=== PATIENT | male | born 1975 | race Caucasian/White ===

== ENCOUNTER 2022-06-30 07:20 | Emergency (ER) | payer OTHER, SELFPAY ==
[2022-06-30 07:34] VITALS: BP 169/99; PULSE 86; RESP 18; TEMP 36.3; O2SAT 99; BMI 25.8
--- NOTE | 2022-06-30 08:04 | ED.ABDPAIN ---
HPI - Abdominal Pain General Chief Complaint: Abdominal Pain Stated Complaint: Abdominal pain/nausea Time Seen by Provider: 06/30/22 07:53 History of Present Illness HPI narrative: This 47-year-old male comes in reporting abdominal pain that is suspicious for pancreatitis. He has had this in the past and states that he did have alcohol this giving weekend began about 4 hours prior to arrival. He has had some nausea and vomiting. He does not report any fevers. Related Data Previous Rx's Medication Instructions Recorded hydrocodone 5 mg-acetaminophen 325 1 tab PO Q4-6H PRN pain #15 tabs 06/30/22 mg tablet ondansetron 4 mg disintegrating 4 mg PO Q6H #20 tabs 06/30/22 tablet Allergies Allergy/AdvReac Type Severity Reaction Status Date / Time No Known Allergies Allergy Unknown Verified 06/30/22 07:39 Review of Systems Status of ROS Reports: 10 or more systems reviewed and unremarkable except as noted in History and below Narrative Constitutional: No fevers, no weight gain or loss. Eyes: No discharge. No vision changes. HENT: No congestion, no sore throat, no ear pain. Cardiovascular: No chest pain, no palpitations. Respiratory: No shortness of breath, no wheezes, no cough. Gastrointestinal: Abdominal pain with nausea and vomiting. Genitourinary: No dysuria, no hematuria. Musculoskeletal: Normal range of motion. Skin: No rashes, no pruritis. Neurological: No dizziness, weakness, sensory change, speech change. Endo/Heme/Allergies: No bruising or bleeding. No polydipsia. Pysch: no suicidality, no anxiety, no insomnia. All other systems reviewed and are negative. [facility] Medical History (Updated 06/30/22 @ 10:42 by Rashaun Ortega MD) Acute pancreatitis Acute pancreatitis Acute sinusitis Alcohol-induced acute pancreatitis History of pancreatitis Non-ulcer dyspepsia Surgical History (Updated 03/10/22 @ 09:25 by Alexus Zurita) History of appendectomy Family History (Updated 03/10/22 @ 09:26 by Alexus Zurita) Father Lung cancer Social History (Updated 03/10/22 @ 09:27 by Alexus Zurita) Narrative: Smoker- 1 ppd Little interest or pleasure in doing things: several days Feeling down, depressed, or hopeless: not at all Exam Narrative: Exam Narrative: Constitutional: Well-developed, well-nourished, no acute distress. HEENT: Normocephalic, atraumatic. Neck: Normal range of motion. Nontender. Supple. Heart: Regular. No murmurs. Normal rate. Intact distal pulses. Lungs: Clear to auscultation. No chest discomfort. No wheezes, rhonchi, or rales. Abdomen: Normal bowel sounds. Diffuse tenderness as in the upper epigastric region. Genitalia: Deferred. Back: No midline tenderness. Normal range of motion. Extremities: Normal range of motion. No injury. Skin: Intact. No rash. Warm. No erythema or pallor. Neurologic: No altered sensation. No weakness. Alert and oriented. Psychiatric: No suicidality. No anxiety or depression. No insomnia. Nursing notes and vitals signs are reviewed. Const: Vital Signs, click to edit/add: Vital Signs - 24 hr 06/30/22 07:34 Temperature 97.3 F L Pulse Rate [Right Pulse Oximeter] 86 Respiratory Rate 18 Blood Pressure [Ri ght Upper Arm] 169/99 H Pulse Oximetry 99 Oxygen Delivery Me thod Room Air Course Vital Signs Vital signs: Initial Vital Signs Temperature 97.3 F L 06/30/22 07:34 Temperature Source Temporal Artery Scan 06/30/22 07:34 Pulse Rate 86 06/30/22 07:34 Pulse Rhythm 06/30/22 07:34 Respiratory Rate 18 06/30/22 07:34 Blood Pressure 169/99 H 06/30/22 07:34 Blood Pressure Mean 122 06/30/22 07:34 Blood Pressure Position Sitting 06/30/22 07:34 Pulse Oximetry 99 06/30/22 07:34 Oxygen Delivery Method 06/30/22 07:34 Vital Signs Temperature 97.3 F L 06/30/22 07:34 Pulse Rate 86 06/30/22 07:34 Respiratory Rate 18 06/30/22 07:34 Blood Pressure 169/99 H 06/30/22 07:34 Pulse Oximetry 99 06/30/22 07:34 Oxygen Delivery Method 06/30/22 07:34 Temperature 97.3 F L 06/30/22 07:34 Pulse Rate 86 06/30/22 07:34 Respiratory Rate 18 06/30/22 07:34 Blood Pressure 169/99 H 06/30/22 07:34 Pulse Oximetry 99 06/30/22 07:34 Oxygen Delivery Method 06/30/22 07:34 MDM - Abdominal Pain MDM Narrative Medical decision making narrative: This patient comes in with abdominal pain that is suspicious for pancreatitis. He has had pancreatitis in the past and states that he did have alcohol over the holiday weekend. An IV was established where he received a L of normal saline, 4 mg of Zofran, and 0.5 mg Dilaudid. This brought some relief to his symptoms. Lab results do returned with a mildly elevated lipase level at 381. His pain started about 4 hours prior to arrival so it seems more likely that this lipase level is on its way up. I discussed these findings with the patient and his significant other. I recommended admission but the patient and his significant other stated that they preferred to return home and hope to into her the symptoms. He states that he would come back if he is getting worse. I again stated typical plan for pancreatitis is to be admitted into a hospital but again he declined this for now. He did received prescriptions for Zofran and some tablets of [place]. I advised him to avoid taking food but to take clear liquids and advance his diet as tolerated. Lab Data Labs: Lab Results 06/30/22 06/30/22 06/30/22 Range/Units 06:56 08:33 08:33 WBC 9.29 (4.50-11.00) K/uL RBC 4.73 (4.30-5.90) m/uL Hgb 15.5 (13.5-17.5) gm/dL Hct 44.9 (37.0-53.0) % MCV 95 (80-100) fL MCH 33 (26-34) pg MCHC 35 (32-36) gm/dL RDW Coeff of Po 12.0 (11.5-15.5) % Plt Count 276 (140-440) K/uL Neut % (Auto) 80.9 H (42.0-72.0) % Lymph % (Auto) 12.5 L (20-44) % [place] % (Auto) 5.3 (0.0-11.0) % Eos % (Auto) 0.8 (0.0-7.0) % Baso % (Auto) 0.4 (0.0-3.0) % Neut # (Auto) 7.50 H (1.7-7.0) K/uL Lymph # (Auto) 1.20 (0.90-2.90) K/uL [place] # (Auto) 0.50 (0.00-0.90) K/UL Eos # (Auto) 0.07 (0.00-0.50) K/uL Baso # (Auto) 0.04 (0.00-0.30) K/uL Abs Immat Gran (auto) 0.01 (0.00-0.30) K/uL Imm/Tot Granulo (auto) 0.1 % Sodium (135-149) mmol/L Potassium (3.6-5.1) mmol/L Chloride (96-114) mmol/L Carbon Dioxide (20-32) mmol/L BUN (5-24) mg/dL Creatinine (0.5-1.5) mg/dL Estimated Creat Clear Estimated GFR ml/min Glucose (60-115) mg/dL Lactate 2.1 H (0.5-1.9) mmol/L Calcium (8.4-10.6) mg/dL Total Bilirubin (0.1-1.5) mg/dL Direct Bilirubin (0.0-0.5) mg/dL AST (12-35) U/L ALT (4-50) U/L Alkaline Phosphatase (40-150) U/L Total Protein (6.0-8.3) g/dL Albumin (3.3-5.0) g/dL Lipase (23-300) U/L Urine Color (Yellow) Urine Appearance (Clear) Urine pH (5.0-8.5) Ur Specific [place] (1.000-1.030) Urine Protein (Negative) Urine Glucose (UA) (Negative) Urine Ketones (Negative) Urine Blood (Negative) Urine Nitrite (Negative) Urine Bilirubin (Negative) Urine Urobilinogen (0.2-1.0) Ur Leukocyte Esterase (Negative) Urine RBC (0-2) Urine WBC (0-5) Urine WBC Clumps (None) Ur Squamous Epith Cells (None-Few) Urine Bacteria (None) Urine Opiates Screen (Negative) Ur Oxycodone Screen (Negative) Urine Methadone Screen (Negative) Ur Propoxyphene Screen (Negative) Ur Barbiturates Screen (Negative) U Tricyclic Antidepress (Negative) Ur Phencyclidine Scrn (Negative) Ur Amphetamines Screen (Negative) U Methamphetamines Scrn (Negative) U Benzodiazepines Scrn (Negative) Urine Cocaine Screen (Negative) U Marijuana (THC) Screen (Negative) Ur Drug Screen Comment Ethyl Alcohol < 0.01 L (0.01-0.03) % 06/30/22 06/30/22 06/30/22 Range/Units 08:33 09:38 09:38 WBC (4.50-11.00) K/uL RBC (4.30-5.90) m/uL Hgb (13.5-17.5) gm/dL Hct (37.0-53.0) % MCV (80-100) fL MCH (26-34) pg MCHC (32-36) gm/dL RDW Coeff of Po (11.5-15.5) % Plt Count (140-440) K/uL Neut % (Auto) (42.0-72.0) % Lymph % (Auto) (20-44) % [place] % (Auto) (0.0-11.0) % Eos % (Auto) (0.0-7.0) % Baso % (Auto) (0.0-3.0) % Neut # (Auto) (1.7-7.0) K/uL Lymph # (Auto) (0.90-2.90) K/uL [place] # (Auto) (0.00-0.90) K/UL Eos # (Auto) (0.00-0.50) K/uL Baso # (Auto) (0.00-0.30) K/uL Abs Immat Gran (auto) (0.00-0.30) K/uL Imm/Tot Granulo (auto) % Sodium 140 (135-149) mmol/L Potassium 4.0 (3.6-5.1) mmol/L Chloride 109 (96-114) mmol/L Carbon Dioxide 22 (20-32) mmol/L BUN 16 (5-24) mg/dL Creatinine 0.8 (0.5-1.5) mg/dL Estimated Creat Clear 111.63 Estimated GFR 111 ml/min Glucose 140 H (60-115) mg/dL Lactate (0.5-1.9) mmol/L Calcium 9.0 (8.4-10.6) mg/dL Total Bilirubin 0.6 (0.1-1.5) mg/dL Direct Bilirubin 0.2 (0.0-0.5) mg/dL AST 31 (12-35) U/L ALT 29 (4-50) U/L Alkaline Phosphatase 73 (40-150) U/L Total Protein 7.7 (6.0-8.3) g/dL Albumin 4.6 (3.3-5.0) g/dL Lipase 381 H (23-300) U/L Urine Color Yellow (Yellow) Urine Appearance Clear (Clear) Urine pH 5.0 (5.0-8.5) Ur Specific [place] 1.025 (1.000-1.030) Urine Protein Negative (Negative) Urine Glucose (UA) Negative (Negative) Urine Ketones Negative (Negative) Urine Blood Negative (Negative) Urine Nitrite Negative (Negative) Urine Bilirubin Negative (Negative) Urine Urobilinogen 0.2 (0.2-1.0) Ur Leukocyte Esterase Negative (Negative) Urine RBC 0-2 (0-2) Urine WBC 2-5 (0-5) Urine WBC Clumps None (None) Ur Squamous Epith Cells None (None-Few) Urine Bacteria None (None) Urine Opiates Screen Negative (Negative) Ur Oxycodone Screen Negative (Negative) Urine Methadone Screen Negative (Negative) Ur Propoxyphene Screen Negative (Negative) Ur Barbiturates Screen Negative (Negative) U Tricyclic Antidepress Negative (Negative) Ur Phencyclidine Scrn Negative (Negative) Ur Amphetamines Screen Negative (Negative) U Methamphetamines Scrn Negative (Negative) U Benzodiazepines Scrn Negative (Negative) Urine Cocaine Screen Negative (Negative) U Marijuana (THC) Screen Negative (Negative) Ur Drug Screen Comment See Note Ethyl Alcohol (0.01-0.03) % Discharge Plan Discharge Clinical Impression: Acute pancreatitis Patient Disposition: Home, Self-Care Condition: Unchanged Additional Instructions: Take clear liquids and advanced diet as tolerated. Use medicines as needed and directed. Return if not improving or worsening symptoms happen. Prescriptions: New hydrocodone-acetaminophen 5-325 mg tablet 1 tab PO Q4-6H PRN (Reason: pain) Qty: 15 0RF ondansetron 4 mg tablet,disintegrating 4 mg PO Q6H Qty: 20 0RF Follow Up/Referrals: SnowMary pierre PA-C [Primary Care Provider] - Stand Alone Forms: [facility] Info Instructions
[2022-06-30] MEDS: 0.9 % SODIUM CHLORIDE 1000 ml 1,000 ML IV (08:38)
[2022-06-30] MEDS: ONDANSETRON 2 MG/ML inj 4 MG IVP (08:38)
[2022-06-30] MEDS: HYDROmorphone 0.5 mg/0.5 ml inj IVP ×2 (08:40→10:53)
[2022-06-30 08:48] LABS: Lactate* 2.1 mmol/L (0.5-1.9)
[2022-06-30 08:50] LABS: Basophils Absolute Auto 0.04 K/uL (0.00-0.30); Basophils Percent Auto 0.4 % (0.0-3.0); Eosinophils Absolute Auto 0.07 K/uL (0.00-0.50); Eosinophils Percent Auto 0.8 % (0.0-7.0); Hematocrit 44.9 % (37.0-53.0); Hemoglobin* 15.5 gm/dL (13.5-17.5); Immature Granulocytes Abs Auto 0.01 K/uL (0.00-0.30); Immature Granulocytes Pct Auto 0.1 %; Lymphocytes Percent Auto 12.5 % (20-44); Mean Corpuscular HGB Conc 35 gm/dL (32-36); Mean Corpuscular Hemoglobin 33 pg (26-34); Mean Corpuscular Volume 95 fL (80-100); Monocytes Percent Auto 5.3 % (0.0-11.0); Neutrophils Percent Auto 80.9 % (42.0-72.0); Platelet Count* 276 K/uL (140-440); Red Blood Count 4.73 m/uL (4.30-5.90); White Blood Count* 9.29 K/uL (4.50-11.00)
[2022-06-30 08:59] LABS: Slide Review Reflex No
[2022-06-30 09:03] LABS: Albumin* 4.6 g/dL (3.3-5.0)
[2022-06-30 09:04] LABS: Chloride* 109 mmol/L (96-114); Sodium* 140 mmol/L (135-149)
[2022-06-30 09:06] LABS: Bilirubin Direct* 0.2 mg/dL (0.0-0.5); Bilirubin Total* 0.6 mg/dL (0.1-1.5); Carbon Dioxide* 22 mmol/L (20-32); Creatinine* 0.8 mg/dL (0.5-1.5); Est. Creatinine Clearance* 111.63; Estimated Glomerular Filt Rate 111 ml/min; Ethanol* < 0.01 % (0.01-0.03); Total Protein* 7.7 g/dL (6.0-8.3)
[2022-06-30 09:07] LABS: Alanine Aminotransferase* 29 U/L (4-50); Alkaline Phosphatase* 73 U/L (40-150); Aspartate Amino Transferase* 31 U/L (12-35); Blood Urea Nitrogen* 16 mg/dL (5-24); Glucose* 140 mg/dL (60-115); Lipase* 381 U/L (23-300)
[2022-06-30 09:58] LABS: Appearance Urine Clear (Clear); Bilirubin Urine Negative (Negative); Blood Urine Negative (Negative); Color Urine Yellow (Yellow); Glucose Urine Negative (Negative); Ketones Urine Negative (Negative); Leukocyte Esterase Urine Negative (Negative); Nitrite Urine Negative (Negative); Protein Urine Negative (Negative); Specific Gravity Urine 1.025 (1.000-1.030); Urobilinogen Urine 0.2 (0.2-1.0)
[2022-06-30 10:04] LABS: Amphetamine Screen Urine Negative (Negative); Barbiturate Screen Urine Negative (Negative); Benzodiazepines Screen Urine Negative (Negative); Cannabinoid Screen Urine Negative (Negative); Cocaine Screen Urine Negative (Negative); Methadone Screen Urine Negative (Negative); Methamphetamines Screen Urine Negative (Negative); Opiate Screen Urine Negative (Negative); Oxycodone Screen Urine Negative (Negative); Phencyclidine Screen Urine Negative (Negative); Tricyclic Antidepressant Urine Negative (Negative)
[2022-06-30 10:13] LABS: RBC Urine 0-2 (0-2)
== END 2022-06-30 11:03 | disposition home or self-care (01) ==
PROVIDERS: Family Medicine; Emergency Provider Emergency Medicine Emergency Medical Services; PCP Physician Assistant Medical
DX: K85.90 Acute pancreatitis without necrosis or infection, unspecified (principal)
CPT/HCPCS: 36415; 80048; 80076; 80306; 81001; 82077; 83605; 83690; 85025; 96374; 96375; 96376; 99284; J1170; J2405; J7030

== ENCOUNTER 2023-04-08 18:21 | Emergency (ER) | payer OTHER, SELFPAY ==
[2023-04-08] VITALS (9 sets, daily range): BP systolic 157–177; BP diastolic 96–104; PULSE 75–84; RESP 18; TEMP 37.4; O2SAT 96–99; BMI 26.6
[2023-04-08] MEDS: 0.9 % SODIUM CHLORIDE 1000 ml 1,000 ML IV (19:21)
[2023-04-08] MEDS: HYDROmorphone 0.5 mg/0.5 ml inj IVP ×2 (19:21→20:27)
[2023-04-08] MEDS: ONDANSETRON 2 MG/ML inj 4 MG IVP (19:21)
[2023-04-08 19:35] LABS: Basophils Absolute Auto 0.02 K/uL (0.00-0.30); Basophils Percent Auto 0.3 % (0.0-3.0); Eosinophils Absolute Auto 0.03 K/uL (0.00-0.50); Eosinophils Percent Auto 0.4 % (0.0-7.0); Hematocrit 44.4 % (37.0-53.0); Hemoglobin* 15.4 gm/dL (13.5-17.5); Immature Granulocytes Abs Auto 0.01 K/uL (0.00-0.30); Immature Granulocytes Pct Auto 0.1 %; Lymphocytes Percent Auto 17.2 % (20-44); Mean Corpuscular HGB Conc 35 gm/dL (32-36); Mean Corpuscular Hemoglobin 32 pg (26-34); Mean Corpuscular Volume 93 fL (80-100); Monocytes Percent Auto 4.9 % (0.0-11.0); Neutrophils Percent Auto 77.1 % (42.0-72.0); Platelet Count* 223 K/uL (140-440); RDW Coefficient of Variation % 11.7 % (11.5-15.5); Red Blood Count 4.79 m/uL (4.30-5.90); White Blood Count* 6.74 K/uL (4.50-11.00)
[2023-04-08 19:49] LABS: Slide Review Reflex No
[2023-04-08 19:53] LABS: Chloride* 99 mmol/L (96-114)
[2023-04-08 19:54] LABS: Albumin* 4.6 g/dL (3.3-5.0); Potassium* 4.2 mmol/L (3.6-5.1); Sodium* 134 mmol/L (135-149)
[2023-04-08 19:56] LABS: Creatinine* 0.7 mg/dL (0.5-1.5); Est. Creatinine Clearance* 126.21; Estimated Glomerular Filt Rate 114 ml/min
[2023-04-08 19:57] LABS: Alanine Aminotransferase* 23 U/L (4-50); Alkaline Phosphatase* 61 U/L (40-150); Anion Gap 10 mEq/L (7-15); Aspartate Amino Transferase* 34 U/L (12-35); Bilirubin Direct* 0.2 mg/dL (0.0-0.5); Blood Urea Nitrogen* 10 mg/dL (5-24); Calcium* 9.6 mg/dL (8.4-10.6); Carbon Dioxide* 25 mmol/L (20-32); Glucose* 104 mg/dL (60-115); Lipase* 403 U/L (23-300)
[2023-04-08 19:59] LABS: Ethanol* < 0.01 % (0.01-0.03)
[2023-04-08 20:00] LABS: C Reactive Protein* 0.8 mg/dL (0.5-1.0)
--- NOTE | 2023-04-08 21:21 | ED.GENADULT ---
HPI - General Adult General Date Seen: 04/08/23 Chief complaint: Abdominal Pain Stated complaint: Stomachache, previous pancreatitis Time Seen by Provider: 04/08/23 18:33 Source: patient Mode of arrival: ambulatory Limitations: no limitations History of Present Illness HPI narrative: Patient is a 48-year-old male with a history of alcohol-induced pancreatitis who was drinking over the weekend and has developed epigastric pain reminiscent of previous episodes of pancreatitis. Today he has been vomiting. He is not vomiting blood, has no black or bloody stools, fevers, no chest pain, difficulty breathing. He has been hospitalized a couple of times in the past for pancreatitis but generally refuses hospitalization and manages his symptoms at home. He does understand that his pancreatitis is caused by alcohol use, says he has no plans to discontinue drinking. Related Data Home Medications Medication Instructions Recorded Confirmed No Known Home Medications 04/08/23 04/08/23 Allergies Allergy/AdvReac Type Severity Reaction Status Date / Time No Known Allergies Allergy Unknown Verified 06/30/22 07:39 Review of Systems Status of ROS: Reports: 10 or more systems reviewed and unremarkable except as noted in History and below [facility] Medical History Non-ulcer dyspepsia ?K30 - Functional dyspepsia (ICD-10) History of pancreatitis ?Z87.19 - Personal history of other diseases of the digestive system (ICD-10) Alcohol-induced acute pancreatitis ?K85.20 - Alcohol induced acute pancreatitis without necrosis or infection (ICD-10) Acute sinusitis ?J01.90 - Acute sinusitis, unspecified (ICD-10) Acute pancreatitis ?K85.90 - Acute pancreatitis without necrosis or infection, unspecified (ICD-10) Acute pancreatitis ?K85.90 - Acute pancreatitis without necrosis or infection, unspecified (ICD-10) Surgical History History of appendectomy ?Z90.49 - Acquired absence of other specified parts of digestive tract (ICD-10) Family History Father Lung cancer Social History Narrative: Smoker- 1 ppd Smoking Status: Never smoker Do you use any of these nicotine containing products: None Second hand tobacco smoke exposure: No How often do you have a drink containing alcohol: 4 or more times a week AUDIT-C Alcohol total score: 4 Non-prescribed substance use: denies use Little interest or pleasure in doing things: several days Feeling down, depressed, or hopeless: not at all service: No Exam Narrative: Exam Narrative: Vital signs as noted above. In general, an alert, well-appearing patient. Head: Normocephalic, atraumatic. Eyes: Pupils are equal reactive. Extraocular movements are full. Conjunctivae are normal. ENT: Mucous membranes are moist. Throat is normal. Neck: Supple without lymphadenopathy. Heart: Regular rate and rhythm. No murmur or rub. Lungs: Clear bilaterally. No increased work of breathing, crackles or wheezes. Abdomen: Nondistended, epigastric tenderness without rebound guarding or rigidity. Extremities: Well perfused. No edema. No calf tenderness. Pulses intact. Neurologic: Patient is alert and oriented to person and place. Speech is fluent. Face is symmetric. Moves all extremities equally. Affect: Normal. Skin: Warm and dry. Well perfused. Const: Vital Signs, click to edit/add: Vital Signs - 24 hr 04/08/23 18:30 Temperature 99.3 F Pulse Rate [Pulse Oximeter] 77 Respiratory Rate 18 Blood Pressure [Ri ght Upper Arm] 177/104 H Pulse Oximetry 99 Oxygen Delivery Me thod Room Air Documenting provider has reviewed patient's vital signs: yes Course Course ED Course: An IV was placed, he was given a total of 2.5 mg doses of Dilaudid, Zofran, a L of normal saline. Labs are notable for a lipase of 403. This is significantly lower than last time he was here when it was 4200, but elevated over reference range of 300. Blood alcohol is 0 today. Metabolic panel notable for a sodium of 134, otherwise normal. LFTs are unremarkable. CBC shows a normal white blood cell count of 6.7 and hemoglobin of 15.4. Platelets are normal. CRP is 0.8, lactate is 1.0. He is feeling better at this time. Does declined admission. Will manage symptoms at home. Understands he should return if he is getting worse instead of better. Clear liquids, I prescribed Percocet 8. Zofran. Discussed that ongoing alcohol use will cause continued bouts of pancreatitis which may get worse. Vital Signs Vital signs: Initial Vital Signs Temperature 99.3 F 04/08/23 18:30 Temperature Source Temporal Artery Scan 04/08/23 18:30 Pulse Rate 77 04/08/23 18:30 Pulse Rhythm Regular 04/08/23 18:30 Pulse Strength 3+ Normal 04/08/23 18:30 Respiratory Rate 18 04/08/23 18:30 Blood Pressure 177/104 H 04/08/23 18:30 Blood Pressure Mean 128 H 04/08/23 18:30 Blood Pressure Position Semi-Fowlers 04/08/23 18:30 Pulse Oximetry 99 04/08/23 18:30 Oxygen Delivery Method Room Air 04/08/23 18:30 Vital Signs Temperature 99.3 F 04/08/23 18:30 Pulse Rate 77 04/08/23 18:30 Respiratory Rate 18 04/08/23 18:30 Blood Pressure 177/104 H 04/08/23 18:30 Pulse Oximetry 99 04/08/23 18:30 Oxygen Delivery Method Room Air 04/08/23 18:30 Temperature 99.3 F 04/08/23 18:30 Pulse Rate 77 04/08/23 18:30 Respiratory Rate 18 04/08/23 18:30 Blood Pressure 177/104 H 04/08/23 18:30 Pulse Oximetry 99 04/08/23 18:30 Oxygen Delivery Method Room Air 04/08/23 18:30 Medical Decision Making Lab Data Labs: Lab Results 04/08/23 04/08/23 04/08/23 Range/Units 19:18 19:18 19:18 WBC 6.74 (4.50-11.00) K/uL RBC 4.79 (4.30-5.90) m/uL Hgb 15.4 (13.5-17.5) gm/dL Hct 44.4 (37.0-53.0) % MCV 93 (80-100) fL MCH 32 (26-34) pg MCHC 35 (32-36) gm/dL RDW Coeff of Po 11.7 (11.5-15.5) % Plt Count 223 (140-440) K/uL Neut % (Auto) 77.1 H (42.0-72.0) % Lymph % (Auto) 17.2 L (20-44) % [place] % (Auto) 4.9 (0.0-11.0) % Eos % (Auto) 0.4 (0.0-7.0) % Baso % (Auto) 0.3 (0.0-3.0) % Neut # (Auto) 5.20 (1.7-7.0) K/uL Lymph # (Auto) 1.20 (0.90-2.90) K/uL [place] # (Auto) 0.30 (0.00-0.90) K/UL Eos # (Auto) 0.03 (0.00-0.50) K/uL Baso # (Auto) 0.02 (0.00-0.30) K/uL Abs Immat Gran (auto) 0.01 (0.00-0.30) K/uL Imm/Tot Granulo (auto) 0.1 % Sodium 134 L (135-149) mmol/L Potassium 4.2 (3.6-5.1) mmol/L Chloride 99 (96-114) mmol/L Carbon Dioxide 25 (20-32) mmol/L Anion Gap 10 (7-15) mEq/L BUN 10 (5-24) mg/dL Creatinine 0.7 (0.5-1.5) mg/dL Estimated Creat Clear 126.21 Estimated GFR 114 ml/min Glucose 104 (60-115) mg/dL Lactate 1.0 (0.5-1.9) mmol/L Calcium 9.6 (8.4-10.6) mg/dL Total Bilirubin 1.0 Cancelled (0.1-1.5) mg/dL Direct Bilirubin 0.2 Cancelled (0.0-0.5) mg/dL AST 34 (12-35) U/L ALT (4-50) U/L Alkaline Phosphatase (40-150) U/L C-Reactive Protein (0.5-1.0) mg/dL Total Protein (6.0-8.3) g/dL Albumin (3.3-5.0) g/dL Lipase (23-300) U/L Ethyl Alcohol (0.01-0.03) % 04/08/23 04/08/23 04/08/23 Range/Units 19:18 19:18 19:18 WBC (4.50-11.00) K/uL RBC (4.30-5.90) m/uL Hgb (13.5-17.5) gm/dL Hct (37.0-53.0) % MCV (80-100) fL MCH (26-34) pg MCHC (32-36) gm/dL RDW Coeff of Po (11.5-15.5) % Plt Count (140-440) K/uL Neut % (Auto) (42.0-72.0) % Lymph % (Auto) (20-44) % [place] % (Auto) (0.0-11.0) % Eos % (Auto) (0.0-7.0) % Baso % (Auto) (0.0-3.0) % Neut # (Auto) (1.7-7.0) K/uL Lymph # (Auto) (0.90-2.90) K/uL [place] # (Auto) (0.00-0.90) K/UL Eos # (Auto) (0.00-0.50) K/uL Baso # (Auto) (0.00-0.30) K/uL Abs Immat Gran (auto) (0.00-0.30) K/uL Imm/Tot Granulo (auto) % Sodium (135-149) mmol/L Potassium (3.6-5.1) mmol/L Chloride (96-114) mmol/L Carbon Dioxide (20-32) mmol/L Anion Gap (7-15) mEq/L BUN (5-24) mg/dL Creatinine (0.5-1.5) mg/dL Estimated Creat Clear Estimated GFR ml/min Glucose (60-115) mg/dL Lactate (0.5-1.9) mmol/L Calcium (8.4-10.6) mg/dL Total Bilirubin (0.1-1.5) mg/dL Direct Bilirubin (0.0-0.5) mg/dL AST Cancelled (12-35) U/L ALT 23 Cancelled (4-50) U/L Alkaline Phosphatase 61 Cancelled (40-150) U/L C-Reactive Protein 0.8 (0.5-1.0) mg/dL Total Protein 8.0 (6.0-8.3) g/dL Albumin (3.3-5.0) g/dL Lipase (23-300) U/L Ethyl Alcohol (0.01-0.03) % 04/08/23 04/08/23 04/08/23 Range/Units 19:18 19:18 19:18 WBC (4.50-11.00) K/uL RBC (4.30-5.90) m/uL Hgb (13.5-17.5) gm/dL Hct (37.0-53.0) % MCV (80-100) fL MCH (26-34) pg MCHC (32-36) gm/dL RDW Coeff of Po (11.5-15.5) % Plt Count (140-440) K/uL Neut % (Auto) (42.0-72.0) % Lymph % (Auto) (20-44) % [place] % (Auto) (0.0-11.0) % Eos % (Auto) (0.0-7.0) % Baso % (Auto) (0.0-3.0) % Neut # (Auto) (1.7-7.0) K/uL Lymph # (Auto) (0.90-2.90) K/uL [place] # (Auto) (0.00-0.90) K/UL Eos # (Auto) (0.00-0.50) K/uL Baso # (Auto) (0.00-0.30) K/uL Abs Immat Gran (auto) (0.00-0.30) K/uL Imm/Tot Granulo (auto) % Sodium (135-149) mmol/L Potassium (3.6-5.1) mmol/L Chloride (96-114) mmol/L Carbon Dioxide (20-32) mmol/L Anion Gap (7-15) mEq/L BUN (5-24) mg/dL Creatinine (0.5-1.5) mg/dL Estimated Creat Clear Estimated GFR ml/min Glucose (60-115) mg/dL Lactate (0.5-1.9) mmol/L Calcium (8.4-10.6) mg/dL Total Bilirubin (0.1-1.5) mg/dL Direct Bilirubin (0.0-0.5) mg/dL AST (12-35) U/L ALT (4-50) U/L Alkaline Phosphatase (40-150) U/L C-Reactive Protein (0.5-1.0) mg/dL Total Protein Cancelled (6.0-8.3) g/dL Albumin 4.6 Cancelled (3.3-5.0) g/dL Lipase 403 H Cancelled (23-300) U/L Ethyl Alcohol < 0.01 L (0.01-0.03) % 04/08/23 Range/Units 19:18 WBC (4.50-11.00) K/uL RBC (4.30-5.90) m/uL Hgb (13.5-17.5) gm/dL Hct (37.0-53.0) % MCV (80-100) fL MCH (26-34) pg MCHC (32-36) gm/dL RDW Coeff of Po (11.5-15.5) % Plt Count (140-440) K/uL Neut % (Auto) (42.0-72.0) % Lymph % (Auto) (20-44) % [place] % (Auto) (0.0-11.0) % Eos % (Auto) (0.0-7.0) % Baso % (Auto) (0.0-3.0) % Neut # (Auto) (1.7-7.0) K/uL Lymph # (Auto) (0.90-2.90) K/uL [place] # (Auto) (0.00-0.90) K/UL Eos # (Auto) (0.00-0.50) K/uL Baso # (Auto) (0.00-0.30) K/uL Abs Immat Gran (auto) (0.00-0.30) K/uL Imm/Tot Granulo (auto) % Sodium (135-149) mmol/L Potassium (3.6-5.1) mmol/L Chloride (96-114) mmol/L Carbon Dioxide (20-32) mmol/L Anion Gap (7-15) mEq/L BUN (5-24) mg/dL Creatinine (0.5-1.5) mg/dL Estimated Creat Clear Estimated GFR ml/min Glucose (60-115) mg/dL Lactate (0.5-1.9) mmol/L Calcium (8.4-10.6) mg/dL Total Bilirubin (0.1-1.5) mg/dL Direct Bilirubin (0.0-0.5) mg/dL AST (12-35) U/L ALT (4-50) U/L Alkaline Phosphatase (40-150) U/L C-Reactive Protein (0.5-1.0) mg/dL Total Protein (6.0-8.3) g/dL Albumin (3.3-5.0) g/dL Lipase (23-300) U/L Ethyl Alcohol Cancelled (0.01-0.03) % Discharge Plan Discharge Clinical Impression: Alcohol-induced pancreatitis Patient Disposition: Home, Self-Care Condition: Improved Instructions: Pancreatitis (ED) Additional Instructions: Clear liquids next 24 hours, advance as able. Return for worsening pain, new symptoms such as fever, protracted vomiting, or other worsening. Continued alcohol use will cause continued bouts of pancreatitis, which may become more severe and lead to more complications. Prescriptions: No Action No Known Home Medications Follow Up/Referrals: Mary Snow PA-C [Primary Care Provider] - Stand Alone Forms: [employer] Info Instructions
== END 2023-04-08 21:33 | disposition home or self-care (01) ==
PROVIDERS: Emergency Provider Emergency Medicine; PCP Physician Assistant Medical
DX: K85.20 Alcohol induced acute pancreatitis without necrosis or infection (principal)
CPT/HCPCS: 36415; 80048; 80076; 82077; 83605; 83690; 85025; 86140; 96361; 96374; 96375; 99284; J1170; J2405; J7030

== ENCOUNTER 2023-05-30 19:05 | Emergency (ER) | payer OTHER, SELFPAY ==
[2023-05-30 19:22] VITALS: BP 186/107; PULSE 108; RESP 20; TEMP 37.1; O2SAT 100; BMI 25.1
--- NOTE | 2023-05-30 20:57 | ED_ITS ---
HPI - General Adult General Chief complaint: Abdominal Pain Stated complaint: Pancreatitis Time Seen by Provider: 05/30/23 20:56 History of Present Illness HPI narrative: Patient reports pain in periumbilical area and nausea with vomiting since . Has had similar episodes attributed to pancreatitis. Patient states he just got so had 4 drinks on Thursday. 48-year-old man presenting to the emergency department concern of abdominal pain. 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 He does endorse having 4 drinks 3 days ago on the occasion of getting . Started having pain in the next day. Has vomited a few times. Has felt warm but has measured a fever. Has not had a bowel movement for last few days. Has tried ibuprofen and Tylenol without relief. Has restricted his diet to try to not aggravate the pain but really anything he takes in seems to cause pain. Pain is in the mid upper abdomen typical for his pancreatitis in the past. Is not having any difficulty breathing. Related Data Home Medications Medication Instructions Recorded Confirmed No Known Home Medications 04/08/23 04/08/23 Allergies Allergy/AdvReac Type Severity Reaction Status Date / Time No Known Allergies Allergy Unknown Verified 05/30/23 19:20 Review of Systems Status of ROS: Reports: 6 or more systems reviewed and unremarkable except as noted in History and below [facility] Medical History Non-ulcer dyspepsia ?K30 - Functional dyspepsia (ICD-10) History of pancreatitis ?Z87.19 - Personal history of other diseases of the digestive system (ICD-10) Alcohol-induced acute pancreatitis ?K85.20 - Alcohol induced acute pancreatitis without necrosis or infection (ICD-10) Acute sinusitis ?J01.90 - Acute sinusitis, unspecified (ICD-10) Acute pancreatitis ?K85.90 - Acute pancreatitis without necrosis or infection, unspecified (ICD- 10) Acute pancreatitis ?K85.90 - Acute pancreatitis without necrosis or infection, unspecified (ICD- 10) Surgical History History of appendectomy ?Z90.49 - Acquired absence of other specified parts of digestive tract (ICD- 10) Family History Father Lung cancer Social History Narrative: Smoker- 1 ppd Smoking Status: Current every day smoker What tobacco products do you use: cigarettes Smoking packs per day: 1 Smoking cigarettes per day: 20.0 Second hand tobacco smoke exposure: Yes How often do you have a drink containing alcohol: monthly or less How many standard drinks containing alcohol do you have on a typical day: 3 or 4 How often do you have six or more drinks on one occasion: Never AUDIT-C Alcohol total score: 2 Non-prescribed substance use: denies use Little interest or pleasure in doing things: several days Feeling down, depressed, or hopeless: not at all service: No Exam Narrative: Exam Narrative: NAD. Big yawn as I enter the room. Oropharynx is a little sticky. Lungs are clear. Heart is in an elevated rate and regular rhythm. Abdomen with normoactive bowel sounds. He tenses though when I begin to palpate though admittedly is not tender across the low abdomen. Quite sensitive though to palpation in the mid upper abdomen into the epigastrium but already at the periumbilical area. Extremities are well perfused and he is without edema lower extremities. Skin warm and dry. Const: Vital Signs, click to edit/add: Vital Signs - 24 hr 05/30/23 19:22 Temperature 98.7 F Pulse Rate [Pulse Oximeter] 108 H Respiratory Rate 20 Blood Pressure [Ri ght Upper Arm] 186/107 H Pulse Oximetry 100 Oxygen Delivery Me thod Room Air Documenting provider has reviewed patient's vital signs: yes Course Vital Signs Vital signs: Initial Vital Signs Temperature 98.7 F 05/30/23 19:22 Temperature Source Temporal Artery Scan 05/30/23 19:22 Pulse Rate 108 H 05/30/23 19:22 Respiratory Rate 20 05/30/23 19:22 Blood Pressure 186/107 H 05/30/23 19:22 Blood Pressure Mean 133 H 05/30/23 19:22 Pulse Oximetry 100 05/30/23 19:22 Oxygen Delivery Method Room Air 05/30/23 19:22 Vital Signs Temperature 98.7 F 05/30/23 19:22 Pulse Rate 108 H 05/30/23 19:22 Respiratory Rate 20 05/30/23 19:22 Blood Pressure 186/107 H 05/30/23 19:22 Pulse Oximetry 100 05/30/23 19:22 Oxygen Delivery Method Room Air 05/30/23 19:22 Temperature 98.7 F 05/30/23 19:22 Pulse Rate 108 H 05/30/23 19:22 Respiratory Rate 20 05/30/23 19:22 Blood Pressure 186/107 H 05/30/23 19:22 Pulse Oximetry 100 05/30/23 19:22 Oxygen Delivery Method Room Air 05/30/23 19:22 Medical Decision Making MDM Narrative Medical decision making narrative: I would presume again pancreatitis. Known trigger known symptoms. Look for red flags or degree of elevation is lipase. Will give IV hydration. Pain managem ent. Did discuss that he would prefer not have morphine noting that it archer. He says ?the other alejandro gives me Dilaudid?. Initiated IV fluids. Given half a mg of Dilaudid. Improved. Zofran. Labs with lipase of little over 1400. Has been much higher in the past though last time checked was around 400. Normal white count. Normal transaminases. Still with pain and requesting little more pain medication. Given other dosing of Dilaudid. Able to tolerate clear liquids. Will trial at home. Zofran and [place] from [employer] [facility] See patient discharge plan Lab Data Lab results reviewed: Yes I reviewed the patient's lab results Labs: Lab Results 05/30/23 Range/Units 21:15 WBC 8.34 (4.50-11.00) K/uL RBC 4.62 (4.30-5.90) m/uL Hgb 14.9 (13.5-17.5) gm/dL Hct 42.9 (37.0-53.0) % MCV 93 (80-100) fL MCH 32 (26-34) pg MCHC 35 (32-36) gm/dL RDW Coeff of Po 11.9 (11.5-15.5) % Plt Count 196 (140-440) K/uL Neut % (Auto) 80.4 H (42.0-72.0) % Lymph % (Auto) 13.3 L (20-44) % [place] % (Auto) 5.4 (0.0-11.0) % Eos % (Auto) 0.7 (0.0-7.0) % Baso % (Auto) 0.1 (0.0-3.0) % Neut # (Auto) 6.70 (1.7-7.0) K/uL Lymph # (Auto) 1.10 (0.90-2.90) K/uL [place] # (Auto) 0.50 (0.00-0.90) K/UL Eos # (Auto) 0.06 (0.00-0.50) K/uL Baso # (Auto) 0.01 (0.00-0.30) K/uL Abs Immat Gran (auto) 0.01 (0.00-0.30) K/uL Imm/Tot Granulo (auto) 0.1 % Sodium 133 L (135-149) mmol/L Potassium 3.6 (3.6-5.1) mmol/L Chloride 101 (96-114) mmol/L Carbon Dioxide 22 (20-32) mmol/L Anion Gap 10 (7-15) mEq/L BUN 7 (5-24) mg/dL Creatinine 0.6 (0.5-1.5) mg/dL Estimated Creat Clear 147.25 Estimated GFR 120 ml/min Glucose 120 H (60-115) mg/dL Lactate 0.8 (0.5-1.9) mmol/L Calcium 9.0 (8.4-10.6) mg/dL Magnesium 2.0 (1.5-2.6) mg/dL Total Bilirubin 1.2 (0.1-1.5) mg/dL Direct Bilirubin 0.2 (0.0-0.5) mg/dL AST 28 (12-35) U/L ALT 19 (4-50) U/L Alkaline Phosphatase 62 (40-150) U/L C-Reactive Protein 1.9 H (0.5-1.0) mg/dL Total Protein 7.5 (6.0-8.3) g/dL Albumin 4.2 (3.3-5.0) g/dL Lipase 1468 H (23-300) U/L Ethyl Alcohol < 0.01 L (0.01-0.03) % Discharge Plan Discharge Clinical Impression: Abdominal pain, Acute pancreatitis Patient Disposition: Home w/ Parent or Adult Condition: Improved Additional Instructions: Do not push it. Focus on clear liquids (Jell-O and clearish soup broths would qualify) for 24 to 36 hours and then maybe can move to thicker soup broths and crackers at that point. Maybe rice. As I said, I think straight water can be little harsh on an empty or recently vomited stomach. Return for marked increase in persistent pain, repeated/intractable vomiting, fever. Zoan and [place] from [employer] Prescriptions: No Action No Known Home Medications Follow Up/Referrals: Mary Snow PA-C [Primary Care Provider] - Stand Alone Forms: [employer] Info Instructions
[2023-05-30 21:23] LABS: Basophils Absolute Auto 0.01 K/uL (0.00-0.30); Basophils Percent Auto 0.1 % (0.0-3.0); Eosinophils Absolute Auto 0.06 K/uL (0.00-0.50); Eosinophils Percent Auto 0.7 % (0.0-7.0); Hematocrit 42.9 % (37.0-53.0); Hemoglobin* 14.9 gm/dL (13.5-17.5); Immature Granulocytes Abs Auto 0.01 K/uL (0.00-0.30); Immature Granulocytes Pct Auto 0.1 %; Lymphocytes Percent Auto 13.3 % (20-44); Mean Corpuscular HGB Conc 35 gm/dL (32-36); Mean Corpuscular Hemoglobin 32 pg (26-34); Mean Corpuscular Volume 93 fL (80-100); Monocytes Percent Auto 5.4 % (0.0-11.0); Neutrophils Percent Auto 80.4 % (42.0-72.0); Platelet Count* 196 K/uL (140-440); RDW Coefficient of Variation % 11.9 % (11.5-15.5); Red Blood Count 4.62 m/uL (4.30-5.90); White Blood Count* 8.34 K/uL (4.50-11.00)
[2023-05-30] MEDS: HYDROmorphone 0.5 mg/0.5 ml inj IVP ×2 (21:23→23:03)
[2023-05-30] MEDS: KETOROLAC 30 MG/ML inj IVP (21:23)
[2023-05-30] MEDS: 0.9 % SODIUM CHLORIDE 1000 ml 1,000 ML IV (21:23)
[2023-05-30 21:29] LABS: Slide Review Reflex No
[2023-05-30 21:36] LABS: Lactate* 0.8 mmol/L (0.5-1.9)
[2023-05-30 21:59] LABS: Albumin* 4.2 g/dL (3.3-5.0); Chloride* 101 mmol/L (96-114); Sodium* 133 mmol/L (135-149)
[2023-05-30 22:00] LABS: Potassium* 3.6 mmol/L (3.6-5.1)
[2023-05-30 22:01] LABS: Creatinine* 0.6 mg/dL (0.5-1.5); Est. Creatinine Clearance* 147.25; Estimated Glomerular Filt Rate 120 ml/min
[2023-05-30 22:02] LABS: Alkaline Phosphatase* 62 U/L (40-150); Anion Gap 10 mEq/L (7-15); Aspartate Amino Transferase* 28 U/L (12-35); Bilirubin Direct* 0.2 mg/dL (0.0-0.5); Bilirubin Total* 1.2 mg/dL (0.1-1.5); Blood Urea Nitrogen* 7 mg/dL (5-24); Carbon Dioxide* 22 mmol/L (20-32); Glucose* 120 mg/dL (60-115); Lipase* 1468 U/L (23-300); Total Protein* 7.5 g/dL (6.0-8.3)
[2023-05-30 22:03] LABS: Alanine Aminotransferase* 19 U/L (4-50)
[2023-05-30 22:05] LABS: C Reactive Protein* 1.9 mg/dL (0.5-1.0); Ethanol* < 0.01 % (0.01-0.03)
[2023-05-30] MEDS: ONDANSETRON 2 MG/ML inj 4 MG IVP (23:04)
== END 2023-05-31 00:35 | disposition home or self-care (01) ==
PROVIDERS: Emergency Provider Family Medicine; PCP Physician Assistant Medical
DX: K85.90 Acute pancreatitis without necrosis or infection, unspecified (principal)
CPT/HCPCS: 36415; 80048; 80076; 82077; 83605; 83690; 83735; 85025; 86140; 96374; 96375; 96376; 99284; J1170; J1885; J2405; J7030

== ENCOUNTER 2023-05-31 16:54 | Observation (INO) | payer OTHER, SELFPAY ==
[2023-05-31] VITALS (13 sets, daily range): BP systolic 156–197; BP diastolic 99–117; PULSE 85–112; RESP 18; TEMP 36.6–36.7; O2SAT 95–99; BMI 25.1; BMI 24.2
--- NOTE | 2023-05-31 17:52 | CRLHL7_ITS ---
For Patients: As a result of the 21st Century Cures Act, medical imaging exams and procedure reports are released immediately into your electronic medical record. You may view this report before your referring provider. If you have questions, please contact your health care provider. INDICATION: Pancreatitis, worsening pain TECHNIQUE: CT abdomen and pelvis acquired with IV contrast. COMPARISON: April 23, 2021 FINDINGS: Lower chest: Unremarkable. Liver: Unremarkable. Spleen: Unremarkable. Pancreas: Diffuse peripancreatic edema/stranding, compatible with acute pancreatitis. Stable calcific rimmed 1.8 cm oval area at the pancreatic tail, again suggesting chronic pseudocyst are similar. Increased number calcifications in the pancreatic tail area, likely related to chronic pancreatitis. There is also a new focal calcification at the pancreatic head, image 54 of series 2, about 6 millimeters in diameter. It would be difficult to entirely exclude intraductal stone. No evidence of pancreatic necrosis. No new pseudocyst identified. Gallbladder and bile ducts: Unremarkable. There is no intrahepatic nor extrahepatic biliary enlargement. Kidneys: Unremarkable. Adrenal glands: Unremarkable. GI tract: Unremarkable. Appendix is not seen, multiple metallic surgical clips about the cecum area could represent prior appendectomy. Vascular structures: Negative. No sign of aneurysm. Lymph nodes: Unremarkable. Miscellaneous: Stable small fat containing left inguinal hernia. No free air or significant free fluid. Pelvic Organs: Small amount of free fluid/ascites within the dependent pelvis, otherwise, unremarkable. Bones: Unremarkable for age. IMPRESSION: 1. Acute pancreatitis with diffuse peripancreatic edema, no evidence of pancreatic necrosis/abscess/new pseudocyst. Stable 2 cm peripherally calcified structure within the pancreatic tail. New/progressive punctate calcifications and pancreatic tail, suggesting chronic pancreatitis changes. New 6 millimeter focal calcification in the pancreatic head, indeterminate. Common bile duct calcification/stone not entirely excludable, clinical/laboratory correlation recommended. 2. Otherwise, no new/acute abnormality. 3. Probably status post appendectomy, as above. Please note that all CT scans at this facility use dose modulation, iterative reconstruction, and/or weight-based dosing when appropriate to reduce radiation dose to as low as reasonably achievable. Dictated by Sundeep Montague MD @ 05/31/2023 8:04:17 PM (Electronically Signed)
--- NOTE | 2023-05-31 18:22 | ED.GENADULT ---
HPI - General Adult General Date Seen: 05/31/23 Chief complaint: Abdominal Pain Stated complaint: Pancreatits Time Seen by Provider: 05/31/23 17:46 Source: patient Mode of arrival: ambulatory Limitations: no limitations History of Present Illness HPI narrative: Patient is a 48-year-old male with a history of alcohol-induced pancreatitis. Seen yesterday with onset of epigastric pain and vomiting, lipase was elevated at 1400. Imaging not done. He was nontoxic, admission verses management at home was discussed and as he typically does okay with home management he was discharged home with pain medications. He reports that he has not done well this time, pain is worse and he is not able to take anything in orally. He has not had further vomiting. He denies fevers, chest pain, trouble breathing, or other complaints. Last admission for pancreatitis was several years ago. He smokes cigarettes, denies substance use other than alcohol. He does not report heavy alcohol use, says he just got and so he had ?4 drinks. I have seen him previously, he understands that his pancreatitis is caused by alcohol use, does not have any interest in ceasing alcohol use. Related Data Home Medications Medication Instructions Recorded Confirmed No Known Home Medications 04/08/23 04/08/23 Allergies Allergy/AdvReac Type Severity Reaction Status Date / Time No Known Allergies Allergy Unknown Verified 05/31/23 19:18 Review of Systems Status of ROS: Reports: 10 or more systems reviewed and unremarkable except as noted in History and below [facility] Medical History Non-ulcer dyspepsia ?K30 - Functional dyspepsia (ICD-10) History of pancreatitis ?Z87.19 - Personal history of other diseases of the digestive system (ICD-10) Alcohol-induced acute pancreatitis ?K85.20 - Alcohol induced acute pancreatitis without necrosis or infection (ICD-10) Acute sinusitis ?J01.90 - Acute sinusitis, unspecified (ICD-10) Acute pancreatitis ?K85.90 - Acute pancreatitis without necrosis or infection, unspecified (ICD-10) Acute pancreatitis ?K85.90 - Acute pancreatitis without necrosis or infection, unspecified (ICD-10) Surgical History History of appendectomy ?Z90.49 - Acquired absence of other specified parts of digestive tract (ICD-10) Family History Father Lung cancer Social History Narrative: Smoker- 1 ppd Smoking Status: Current every day smoker What tobacco products do you use: cigarettes Smoking packs per day: 1 Smoking cigarettes per day: 20.0 Second hand tobacco smoke exposure: Yes How often do you have a drink containing alcohol: monthly or less How many standard drinks containing alcohol do you have on a typical day: 3 or 4 How often do you have six or more drinks on one occasion: Never AUDIT-C Alcohol total score: 2 Non-prescribed substance use: denies use Little interest or pleasure in doing things: several days Feeling down, depressed, or hopeless: not at all service: No Exam Narrative: Exam Narrative: Vital signs as noted above. In general, an alert, well-appearing patient. Head: Normocephalic, atraumatic. Eyes: Pupils are equal reactive. Extraocular movements are full. Conjunctivae are normal. ENT: Mucous membranes are moist. Throat is normal. Neck: Supple without lymphadenopathy. Heart: Regular rate and rhythm. No murmur or rub. Lungs: Clear bilaterally. No increased work of breathing, crackles or wheezes. Abdomen: Soft, nondistended. Epigastric, left upper and right upper abdominal tenderness greatest in the epigastrium. Some voluntary guarding. No rebound tenderness or rigidity. Extremities: Well perfused. No edema. No calf tenderness. Pulses intact. Neurologic: Patient is alert and oriented to person and place. Speech is fluent. Face is symmetric. Moves all extremities equally. Affect: Normal. Skin: Warm and dry. Well perfused. Const: Vital Signs, click to edit/add: Vital Signs - 24 hr 05/31/23 17:11 05/31/23 19:09 05/31/23 20:16 Temperature 98.1 F Pulse Rate [Pulse Oximeter] 112 H 93 95 Respiratory Rate 18 18 18 Blood Pressure [Ri ght Upper Arm] 156/107 H 197/116 H 190/117 H Pulse Oximetry 99 99 99 Oxygen Delivery Me thod Room Air Room Air Room Air Documenting provider has reviewed patient's vital signs: yes Course Course ED Course: Previous records reviewed including yesterday's visit as well as my previous note. Patient has not had imaging recently therefore elected to do a CT scan today to rule out complications such as pseudocyst necrosis etcetera. Labs show normal white blood cell count of 9, hemoglobin is 16.4 he does have a left shift with 86% neutrophils. Metabolic panel is normal. Blood sugars 123. Lactate is 1. LFTs are normal. Specifically alk-phos is 69, bilirubin is 1. His CRP is mildly elevated at 3, lipase is elevated to 01/31/1987, a little more than double yesterday. Blood alcohol is negative. CT scan by my review showed acute pancreatitis, final radiology read as follows:FINDINGS: Lower chest: Unremarkable. Liver: Unremarkable. Spleen: Unremarkable. Pancreas: Diffuse peripancreatic edema/stranding, compatible with acute pancreatitis. Stable calcific rimmed 1.8 cm oval area at the pancreatic tail, again suggesting chronic pseudocyst are similar. Increased number calcifications in the pancreatic tail area, likely related to chronic pancreatitis. There is also a new focal calcification at the pancreatic head, image 54 of series 2, about 6 millimeters in diameter. It would be difficult to entirely exclude intraductal stone. No evidence of pancreatic necrosis. No new pseudocyst identified. Gallbladder and bile ducts: Unremarkable. There is no intrahepatic nor extrahepatic biliary enlargement. Kidneys: Unremarkable. Adrenal glands: Unremarkable. GI tract: Unremarkable. Appendix is not seen, multiple metallic surgical clips about the cecum area could represent prior appendectomy. Vascular structures: Negative. No sign of aneurysm. Lymph nodes: Unremarkable. Miscellaneous: Stable small fat containing left inguinal hernia. No free air or significant free fluid. Pelvic Organs: Small amount of free fluid/ascites within the dependent pelvis, otherwise, unremarkable. Bones: Unremarkable for age. IMPRESSION: 1. Acute pancreatitis with diffuse peripancreatic edema, no evidence of pancreatic necrosis/abscess/new pseudocyst. Stable 2 cm peripherally calcified structure within the pancreatic tail. New/progressive punctate calcifications and pancreatic tail, suggesting chronic pancreatitis changes. New 6 millimeter focal calcification in the pancreatic head, indeterminate. Common bile duct calcification/stone not entirely excludable, clinical/laboratory correlation recommended. 2. Otherwise, no new/acute abnormality. 3. Probably status post appendectomy, as above. Patient had Dilaudid for pain control in the emergency department, 0.5 mg time it is too doses. Normal saline. Plan will be admission to hospitalist service for hydration and bowel rest. Vital Signs Vital signs: Initial Vital Signs Temperature 98.1 F 05/31/23 17:11 Temperature Source Temporal Artery Scan 05/31/23 17:11 Pulse Rate 112 H 05/31/23 17:11 Pulse Rhythm Regular 05/31/23 17:11 Respiratory Rate 18 05/31/23 17:11 Blood Pressure 156/107 H 05/31/23 17:11 Blood Pressure Mean 123 H 05/31/23 17:11 Blood Pressure Position Sitting 05/31/23 17:11 Pulse Oximetry 99 05/31/23 17:11 Oxygen Delivery Method Room Air 05/31/23 17:11 Vital Signs Temperature 98.1 F 05/31/23 17:11 Pulse Rate 112 H 05/31/23 17:11 Respiratory Rate 18 05/31/23 17:11 Blood Pressure 156/107 H 05/31/23 17:11 Pulse Oximetry 99 05/31/23 17:11 Oxygen Delivery Method Room Air 05/31/23 17:11 Temperature 98.1 F 05/31/23 17:11 Pulse Rate 95 05/31/23 20:16 Respiratory Rate 18 05/31/23 20:16 Blood Pressure 190/117 H 05/31/23 20:16 Pulse Oximetry 99 05/31/23 20:16 Oxygen Delivery Method Room Air 05/31/23 20:16 Medical Decision Making Lab Data Labs: Lab Results 05/31/23 Range/Units 18:55 WBC 9.05 (4.50-11.00) K/uL RBC 5.11 (4.30-5.90) m/uL Hgb 16.4 (13.5-17.5) gm/dL Hct 47.3 (37.0-53.0) % MCV 93 (80-100) fL MCH 32 (26-34) pg MCHC 35 (32-36) gm/dL RDW Coeff of Po 11.7 (11.5-15.5) % Plt Count 204 (140-440) K/uL Neut % (Auto) 86.0 H (42.0-72.0) % Lymph % (Auto) 10.2 L (20-44) % [place] % (Auto) 3.4 (0.0-11.0) % Eos % (Auto) 0.2 (0.0-7.0) % Baso % (Auto) 0.1 (0.0-3.0) % Neut # (Auto) 7.80 H (1.7-7.0) K/uL Lymph # (Auto) 0.90 (0.90-2.90) K/uL [place] # (Auto) 0.30 (0.00-0.90) K/UL Eos # (Auto) 0.02 (0.00-0.50) K/uL Baso # (Auto) 0.01 (0.00-0.30) K/uL Abs Immat Gran (auto) 0.01 (0.00-0.30) K/uL Imm/Tot Granulo (auto) 0.1 % Sodium 136 (135-149) mmol/L Potassium 3.6 (3.6-5.1) mmol/L Chloride 100 (96-114) mmol/L Carbon Dioxide 25 (20-32) mmol/L Anion Gap 11 (7-15) mEq/L BUN 8 (5-24) mg/dL Creatinine 0.6 (0.5-1.5) mg/dL Estimated Creat Clear 147.25 Estimated GFR 120 ml/min Glucose 123 H (60-115) mg/dL Lactate 1.0 (0.5-1.9) mmol/L Calcium 9.2 (8.4-10.6) mg/dL Total Bilirubin 1.4 (0.1-1.5) mg/dL Direct Bilirubin 0.4 (0.0-0.5) mg/dL AST 32 (12-35) U/L ALT 19 (4-50) U/L Alkaline Phosphatase 69 (40-150) U/L C-Reactive Protein 3.0 H (0.5-1.0) mg/dL Total Protein 8.3 (6.0-8.3) g/dL Albumin 4.6 (3.3-5.0) g/dL Lipase 3688 H (23-300) U/L Ethyl Alcohol < 0.01 L (0.01-0.03) % Discharge Plan Discharge Clinical Impression: Pancreatitis, acute Patient Disposition: Admitted As Observation Condition: Stable
[2023-05-31] MEDS: ONDANSETRON 2 MG/ML inj 4 MG IVP (19:01)
[2023-05-31] MEDS: 0.9 % SODIUM CHLORIDE 1000 ml 1,000 ML IV (19:01)
[2023-05-31] MEDS: HYDROmorphone 0.5 mg/0.5 ml inj IVP ×4 (19:02→23:58)
[2023-05-31 19:07] LABS: Basophils Absolute Auto 0.01 K/uL (0.00-0.30); Basophils Percent Auto 0.1 % (0.0-3.0); Eosinophils Absolute Auto 0.02 K/uL (0.00-0.50); Eosinophils Percent Auto 0.2 % (0.0-7.0); Hematocrit 47.3 % (37.0-53.0); Hemoglobin* 16.4 gm/dL (13.5-17.5); Immature Granulocytes Abs Auto 0.01 K/uL (0.00-0.30); Immature Granulocytes Pct Auto 0.1 %; Lymphocytes Percent Auto 10.2 % (20-44); Mean Corpuscular HGB Conc 35 gm/dL (32-36); Mean Corpuscular Hemoglobin 32 pg (26-34); Mean Corpuscular Volume 93 fL (80-100); Monocytes Percent Auto 3.4 % (0.0-11.0); Platelet Count* 204 K/uL (140-440); RDW Coefficient of Variation % 11.7 % (11.5-15.5); Red Blood Count 5.11 m/uL (4.30-5.90); White Blood Count* 9.05 K/uL (4.50-11.00)
[2023-05-31 19:14] LABS: Slide Review Reflex No
[2023-05-31 19:39] LABS: Chloride* 100 mmol/L (96-114)
[2023-05-31 19:40] LABS: Albumin* 4.6 g/dL (3.3-5.0); Potassium* 3.6 mmol/L (3.6-5.1); Sodium* 136 mmol/L (135-149)
[2023-05-31 19:43] LABS: Alanine Aminotransferase* 19 U/L (4-50); Alkaline Phosphatase* 69 U/L (40-150); Anion Gap 11 mEq/L (7-15); Aspartate Amino Transferase* 32 U/L (12-35); Bilirubin Direct* 0.4 mg/dL (0.0-0.5); Bilirubin Total* 1.4 mg/dL (0.1-1.5); Blood Urea Nitrogen* 8 mg/dL (5-24); Calcium* 9.2 mg/dL (8.4-10.6); Carbon Dioxide* 25 mmol/L (20-32); Creatinine* 0.6 mg/dL (0.5-1.5); Est. Creatinine Clearance* 147.25; Estimated Glomerular Filt Rate 120 ml/min; Glucose* 123 mg/dL (60-115); Total Protein* 8.3 g/dL (6.0-8.3)
[2023-05-31 19:50] LABS: Ethanol* < 0.01 % (0.01-0.03)
[2023-05-31 20:10] LABS: Lipase* 3688 U/L (23-300)
--- NOTE | 2023-05-31 20:23 | ED.NURSE ---
hs aware of admission. has been watching football with . has gotten 2nd dose of dilaudid.
--- NOTE | 2023-05-31 21:36 | ED.NURSE ---
report to [facility]. asking for pain med. will go to 279.
--- NOTE | 2023-05-31 21:44 | P.IMHP_ITS ---
Hospitalist- H&P: HPI History of Present Illness Time Seen by Provider: 21:00 Date Seen: 05/31/23 Chief complaint: Acute on chronic pancreatitis Narrative: Kp Hansen is a 48 year old man with a history of recurrent alcohol- induced pancreatitis, who presents with a 2 day history of increasing abdominal pain, intermittent nausea and vomiting, decreased oral intake. Was seen in the emergency department for the same yesterday, declined admission at that time. Attempted in-home management but was not successful. Returns today with persistent epigastric pain, unable to keep anything down with nausea and intermittent vomiting. Was this past 05/27/2023, in [place]. Tells me he had 4-5 beers that day and has had slowly progressive epigastric discomfort since. Denies trauma or injury. Denies fevers, rigors, diaphoresis. For the most part has been sober for the last few months. May have 3 or 4 alcoholic beverages every 1 to 2 months. Does have intermittent episodes of abdominal pain which he ascribes to pancreatitis which he normally manages at home. Was unable to manage this particular episode at home and thus presents back to the hospital knowing full well he needs inpatient support at this time. Review of Systems Status of ROS: Reports: 10 or more systems reviewed and unremarkable except as noted in History and below [facility] Medical History Tobacco dependence ?F17.200 - Nicotine dependence, unspecified, uncomplicated (ICD-10) Chronic pancreatitis due to chronic alcoholism ?K86.0 - Alcohol-induced chronic pancreatitis (ICD-10) ?F10.20 - Alcohol dependence, uncomplicated (ICD-10) Acute pancreatitis ?K85.90 - Acute pancreatitis without necrosis or infection, unspecified (ICD- 10) Psoriasis ?L40.9 - Psoriasis, unspecified (ICD-10) Cocaine use ?F14.90 - Cocaine use, unspecified, uncomplicated (ICD-10) Alcoholism ?F10.20 - Alcohol dependence, uncomplicated (ICD-10) Non-ulcer dyspepsia ?K30 - Functional dyspepsia (ICD-10) History of pancreatitis ?Z87.19 - Personal history of other diseases of the digestive system (ICD-10) Alcohol-induced acute pancreatitis ?K85.20 - Alcohol induced acute pancreatitis without necrosis or infection (ICD-10) Acute sinusitis ?J01.90 - Acute sinusitis, unspecified (ICD-10) Surgical History History of appendectomy ?Z90.49 - Acquired absence of other specified parts of digestive tract (ICD- 10) Family History Father Lung cancer Social History Narrative: Smoker- 1 ppd Smoking Status: Current every day smoker What tobacco products do you use: cigarettes Smoking packs per day: 1 Smoking cigarettes per day: 20.0 Second hand tobacco smoke exposure: Yes How often do you have a drink containing alcohol: monthly or less How many standard drinks containing alcohol do you have on a typical day: 3 or 4 How often do you have six or more drinks on one occasion: Never AUDIT-C Alcohol total score: 2 Non-prescribed substance use: denies use Little interest or pleasure in doing things: several days Feeling down, depressed, or hopeless: not at all service: No Meds Home Medications and Allergies Home Medications Medication Instructions Recorded Confirmed Type No Known Home Medications 04/08/23 04/08/23 History Allergies Allergy/AdvReac Type Severity Reaction Status Date / Time No Known Allergies Allergy Unknown Verified 05/31/23 19:18 Exam Narrative: Exam Narrative: Examine him in the emergency department. He is laying still on his bed and does not appear to be in any acute distress. Every now and then he winces for moment or 2 and then this spontaneously resolves. He tells me he has these sharp, stabbing pains intermittently that resolve rather spontaneously and quickly. Vision and hearing are grossly normal. Alert and oriented to self, place, time, situation. From the, articulate, cooperative. Mood and affect are congruent. Normal external auditory canals. Midline nasal septum. Dentition in fair repair. Dry buccal mucosa. No icterus or conjunctival injection. Pupils equally round and reactive to light and accommodation. Extraocular muscles intact. Conjugate gaze. Neck is supple. Midline trachea. No head neck no lymphadenopathy. Lungs are clear to auscultation without wheezing, rhonchi, or rales. Chest wall excursions are full. No CVA tenderness. Heart with regular rhythm, normal S1-S2, without murmur, gallop, rub. PMI is not laterally displaced. Abdomen with active bowel sounds. Subjective discomfort to palpation epigastrium. No rebound. Palpable pulses in upper and lower extremities. No edema. No focal motor neurologic deficits. Cranial nerves 3-12 grossly intact. No tremor, asterixis, or ataxia. Independent transfer, station, and gait. Const: Vital Signs, click to edit/add: Vital Signs - 24 hr 05/31/23 17:11 05/31/23 19:09 05/31/23 20:16 Temperature 98.1 F Pulse Rate Pulse Rate [Pulse Oximeter] 112 H 93 95 Respiratory Rate 18 18 18 Blood Pressure Blood Pressure [Ri ght Upper Arm] 156/107 H 197/116 H 190/117 H Pulse Oximetry 99 99 99 Oxygen Delivery Me thod Room Air Room Air Room Air 05/31/23 20:22 05/31/23 20:30 05/31/23 20:32 Temperature Pulse Rate 93 85 91 Pulse Rate [Pulse Oximeter] Respiratory Rate Blood Pressure 187/117 H Blood Pressure [Ri ght Upper Arm] Pulse Oximetry 98 97 98 Oxygen Delivery Me thod 05/31/23 20:45 05/31/23 21:00 05/31/23 21:02 Temperature Pulse Rate 95 97 88 Pulse Rate [Pulse Oximeter] Respiratory Rate Blood Pressure 185/116 H Blood Pressure [Ri ght Upper Arm] Pulse Oximetry 98 98 99 Oxygen Delivery Me thod 05/31/23 21:15 05/31/23 21:30 Temperature Pulse Rate 95 87 Pulse Rate [Pulse Oximeter] Respiratory Rate Blood Pressure Blood Pressure [Ri ght Upper Arm] Pulse Oximetry 99 97 Oxygen Delivery Me thod Documenting provider has reviewed patient's vital signs: yes Hospitalist - H&P: Result Labs Labs: Short CBC 05/31/23 Range/Units 18:55 WBC 9.05 (4.50-11.00) K/uL Hgb 16.4 (13.5-17.5) gm/dL Hct 47.3 (37.0-53.0) % Plt Count 204 (140-440) K/uL BMP 05/31/23 18:55 Sodium 136 Potassium 3.6 Chloride 100 Carbon Dioxide 25 BUN 8 Creatinine 0.6 Glucose 123 H Calcium 9.2 Liver Function 05/31/23 Range/Units 18:55 Total Bilirubin 1.4 (0.1-1.5) mg/dL Direct Bilirubin 0.4 (0.0-0.5) mg/dL AST 32 (12-35) U/L ALT 19 (4-50) U/L Alkaline Phosphatase 69 (40-150) U/L Albumin 4.6 (3.3-5.0) g/dL Imaging CT scan - abdomen: Attestation: I have reviewed the pertinent imaging results. Radiologist's impression: FINDINGS: Lower chest: Unremarkable. Liver: Unremarkable. Spleen: Unremarkable. Pancreas: Diffuse peripancreatic edema/stranding, compatible with acute pancreatitis. Stable calcific rimmed 1.8 cm oval area at the pancreatic tail, again suggesting chronic pseudocyst are similar. Increased number calcifications in the pancreatic tail area, likely related to chronic pancreatitis. There is also a new focal calcification at the pancreatic head, image 54 of series 2, about 6 millimeters in diameter. It would be difficult to entirely exclude intraductal stone. No evidence of pancreatic necrosis. No new pseudocyst identified. Gallbladder and bile ducts: Unremarkable. There is no intrahepatic nor extrahepatic biliary enlargement. Kidneys: Unremarkable. Adrenal glands: Unremarkable. GI tract: Unremarkable. Appendix is not seen, multiple metallic surgical clips about the cecum area could represent prior appendectomy. Vascular structures: Negative. No sign of aneurysm. Lymph nodes: Unremarkable. Miscellaneous: Stable small fat containing left inguinal hernia. No free air or significant free fluid. Pelvic Organs: Small amount of free fluid/ascites within the dependent pelvis, otherwise, unremarkable. Bones: Unremarkable for age. IMPRESSION: 1. Acute pancreatitis with diffuse peripancreatic edema, no evidence of pancreatic necrosis/abscess/new pseudocyst. Stable 2 cm peripherally calcified structure within the pancreatic tail. New/progressive punctate calcifications and pancreatic tail, suggesting chronic pancreatitis changes. New 6 millimeter focal calcification in the pancreatic head, indeterminate. Common bile duct calcification/stone not entirely excludable, clinical/laboratory correlation recommended. 2. Otherwise, no new/acute abnormality. 3. Probably status post appendectomy, as above. Assessment and Plan Assessment and plan (1) Acute on chronic pancreatitis: Problem comment: - Ct scan of abd/pelvis 05/31/2023: IMPRESSION: Acute pancreatitis with diffuse peripancreatic edema, no evidence of pancreatic necrosis/abscess/new pseudocyst. Stable 2 cm peripherally calcified structure within the pancreatic tail. New/progressive punctate calcifications and pancreatic tail, suggesting chronic pancreatitis changes. New 6 millimeter focal calcification in the pancreatic head, indeterminate. Common bile duct calcification/stone not entirely excludable, clinical/laboratory correlation recommended. - NPO, IVF, analgesics, antiemetics, nutrition consult, advance diet as tolerated. - ambulate in halls of hospital minimum of 6 times daily, as well as other venous thromboembolism prophylaxis efforts. Status: Acute (2) Chronic pancreatitis due to chronic alcoholism: Problem comment: - Discussed prognosis and provided educational material to patient and his , newly on 05/27/2023. - Stressed to patient and that the single MOST important treatment is to avoid any and all alcohol exposure hereafter. Status: Acute (3) Lesion of pancreas: Problem comment: - chronic, stable. - CT abd/pelvis 05/31/2023: IMPRESSION: Acute pancreatitis with diffuse peripancreatic edema, no evidence of pancreatic necrosis/abscess/new pseudocyst. Stable 2 cm peripherally calcified structure within the pancreatic tail. New/progressive punctate calcifications and pancreatic tail, suggesting chronic pancreatitis changes. New 6 millimeter focal calcification in the pancreatic head, indeterminate. Common bile duct calcification/stone not entirely excludable, clinical/laboratory correlation recommended. Status: Acute (4) Dehydration, mild: Problem comment: - IVF - advance diet as tolerated Status: Acute (5) Tobacco dependence: Problem comment: - smokes 1 ppd cigarettes - he declines nicotine supplementation Status: Acute (6) Alcohol-induced pancreatitis: Problem comment: - see notes above. - consider outpatient or inpatient treatment for alcoholism, counseling, participation in alcoholics anonymous. Status: Acute (7) Alcohol abuse: Problem comment: - see notes above Status: Acute (8) Anxiety: Problem comment: - h/o use of sertraline, off since 2021. - recommend follow-up with primary care physician. Status: Acute Plan 1. Reviewed above with patient and his . 2. Answered their questions are satisfaction. 3. They are agreeable with above stated plans and recommendations.
[2023-05-31] MEDS: 0.9 % SODIUM CHLORIDE 1000 ml 1,000 ML 125 ML IV (22:11)
--- NOTE | 2023-05-31 23:37 | PC.NURSE ---
Admit 2200- Patient arrives via wheelchair, is ambulatory. Moves fluidly, holds conversation calmly. He states pain is 8/10 until the dilaudid starts kicking in. IV fluids infusing. He remains NPO
[2023-05-31] MEDS: SODIUM CHLORIDE 0.9 % (FLUSH) 10 ML SYRINGE 5 ML IVF (23:59)
[2023-06-01 03:00] VITALS: BP 163/101; PULSE 83; RESP 16; TEMP 37; O2SAT 96
[2023-06-01] MEDS: HYDROmorphone 0.5 mg/0.5 ml inj IVP ×5 (04:05→10:18)
[2023-06-01] MEDS: 0.9 % SODIUM CHLORIDE 1000 ml 1,000 ML 125 ML IV (06:12)
[2023-06-01 06:25] LABS: Lactate* 0.7 mmol/L (0.5-1.9)
--- NOTE | 2023-06-01 06:32 | PC.NURSE ---
End of shift [id number]: Pain to upper abdomen/epigastric pain well managed with IV dilaudid. Denies any nausea or vomiting, continues to be NPO with chips allowed. Bowel sounds active x 4 quadrants, patient reports that he has had decreased appetite for 3 days and that prior to coming to the hospital he had at most 3 crackers in the preceding 24 hours. Slept well between bouts of pain per patient report
[2023-06-01 06:34] LABS: Hemoglobin* 14.5 gm/dL (13.5-17.5); Mean Corpuscular HGB Conc 35 gm/dL (32-36); Mean Corpuscular Hemoglobin 33 pg (26-34); Mean Corpuscular Volume 94 fL (80-100); Platelet Count* 181 K/uL (140-440); Red Blood Count 4.46 m/uL (4.30-5.90); White Blood Count* 7.71 K/uL (4.50-11.00)
[2023-06-01 06:36] LABS: Slide Review Reflex No
[2023-06-01 06:52] LABS: Albumin* 3.6 g/dL (3.3-5.0); Chloride* 103 mmol/L (96-114); Potassium* 3.7 mmol/L (3.6-5.1); Sodium* 135 mmol/L (135-149)
[2023-06-01 06:54] LABS: Creatinine* 0.6 mg/dL (0.5-1.5); Est. Creatinine Clearance* 147.25; Estimated Glomerular Filt Rate 120 ml/min
[2023-06-01 06:55] LABS: Alkaline Phosphatase* 50 U/L (40-150); Anion Gap 6 mEq/L (7-15); Aspartate Amino Transferase* 28 U/L (12-35); Bilirubin Direct* 0.3 mg/dL (0.0-0.5); Bilirubin Total* 1.2 mg/dL (0.1-1.5); Blood Urea Nitrogen* 8 mg/dL (5-24); Carbon Dioxide* 26 mmol/L (20-32); Glucose* 87 mg/dL (60-115); Phosphorus* 3.2 mg/dL (2.5-4.5); Total Protein* 6.6 g/dL (6.0-8.3)
[2023-06-01 06:56] LABS: Alanine Aminotransferase* 17 U/L (4-50); Calcium* 8.4 mg/dL (8.4-10.6); Cholesterol* 138 mg/dL (90-199); HDL Cholesterol* 34 mg/dL (>=40); LDL Cholesterol Calculated 69 mg/dL (<100); Triglycerides* 176 mg/dL (40-149)
[2023-06-01 06:58] LABS: C Reactive Protein* 3.9 mg/dL (0.5-1.0)
[2023-06-01 07:28] LABS: Lipase* 3767 U/L (23-300)
[2023-06-01 07:39] VITALS: BP 142/85; PULSE 77; RESP 16; TEMP 36.8; O2SAT 95
[2023-06-01 11:05] VITALS: BP 137/85; PULSE 76; RESP 16; TEMP 36.6; O2SAT 98
--- NOTE | 2023-06-01 11:23 | NUTR.NU ---
RDN with MD consult for recurrent, chronic pancreatitis. Patient has a history of alcohol-induced pancreatitis. Weights before 05/31/2023 have been stated. Current weight 158 lbs, height 5ft 8in; BMI is normal at 24.2 kg/m2. Current diet is clear liquids, this was advanced this morning. Patient was NPO at admit, no meal intakes to assess. RDN visited with patient whom reports tolerating juice and a popsicle this morning. He does not follow a diet at home. RDN offered diet education related to pancreatitis, however patient declined. Patient did accept educational materials (Pancreatitis Nutrition Therapy from [facility]). Patient was encouraged to let staff know if he has any questions/concerns. RDN's contact information was provided and patient was encouraged to call with questions.
[2023-06-01] MEDS: OXYCODONE 5 MG TABLET PO (11:43)
--- NOTE | 2023-06-01 12:50 | P.DS_ITS ---
DS: Providers Provider Date Seen: 06/01/23 Date of admission: 05/31/23 22:01 Primary care physician: Mary Snow PA-C Admitting Clinician: Stan Ruiz MD Attending Physician on discharge: Sundeep Pineda MD Date of Discharge: 06/01/23 DS: Diagnosis Discharge Diagnosis (1) Acute on chronic pancreatitis: Status: Acute Problem details: Patient has had multiple recurrent hospital admissions for acute pancreatitis. Also has had multiple episodes of abdominal pain managed at home. This likely reflects his chronic pancreatitis with acute exacerbations related to alcohol use. - Ct scan of abd/pelvis 05/31/2023: IMPRESSION: Acute pancreatitis with diffuse peripancreatic edema, no evidence of pancreatic necrosis/abscess/new pseudocyst. Stable 2 cm peripherally calcified structure within the pancreatic tail. New/progressive punctate calcifications and pancreatic tail, suggesting chronic pancreatitis changes. New 6 millimeter focal calcification in the pancreatic head, indeterminate. Common bile duct calcification/stone not entirely excludable, clinical/laboratory correlation recommended. - NPO, IVF, analgesics, antiemetics, nutrition consult, advance diet as tolerated. - ambulate in halls of hospital minimum of 6 times daily, as well as other venous thromboembolism prophylaxis efforts. (2) Lesion of pancreas: Status: Acute Problem details: Pancreatic lesions suggestive of chronic pancreatitis. There is also a new lesion near the head of the pancreas. If patient continues to have abdominal pain and symptoms despite abstinence from alcohol repeat imaging may be appropriate. (3) Dehydration, mild: Status: Acute Problem details: Resolved. Tolerating p.o. fluid. (4) Chronic pancreatitis due to chronic alcoholism: Status: Acute Problem details: - Discussed prognosis and provided educational material to patient and his , newly on 05/27/2023. - Stressed to patient and that the single MOST important treatment is to avoid any and all alcohol exposure hereafter. (5) Anxiety: Status: Acute Problem details: His anxiety may contribute to alcohol abuse as well as his alcohol abuse now is making him more anxious. (6) Alcohol abuse: Status: Acute Problem details: I offered him resources for help with alcohol abuse. He initially denied that alcohol was contributing to his troubles but then acknowledged it is possible that it could be. He is not seeking any assistance for this problem. (7) Tobacco dependence: Status: Acute Problem details: - smokes 1 ppd cigarettes - he declines nicotine supplementation DS: Summary Status at Discharge Cognitive/behavioral status at discharge: 48-year-old male admitted to the hospital with intractable abdominal pain. This is felt to be due to pancreatitis. He was seen in the emergency department the day prior to admission and chose to go home. Dada return because of intractable pain. CT scan showed diffuse inflammation of the pancreas as well as calcifications suggestive of chronic pancreatitis. 1 of these areas of calcification was near the head of the pancreas and new. He received IV fluids and IV pain medications and feels much better today. He is very anxious to go home. He can be discharged to home if he tolerates oral food and fluid today. Functional status at discharge: independent ambulation Overall status at discharge: patient is progressing back to baseline Time Spent with Patient Time attestation: Total time spent providing and/or coordinating discharge services: Time spent: Greater than 30 minutes Exam Narrative: Exam Narrative: He is alert and appears in no distress. Breathing is unlabored. Abdomen: Bowel sounds active. Abdomen is soft he has voluntary guarding and [id number] tenderness in his epigastrium. No skin rash. No edema. Const: Vital Signs, click to edit/add: Vital Signs - 24 hr 05/31/23 17:11 05/31/23 19:09 05/31/23 20:16 Temperature 98.1 F Pulse Rate Pulse Rate [Pulse Oximeter] 112 H 93 95 Respiratory Rate 18 18 18 Blood Pressure Blood Pressure [Le ft Arm] Blood Pressure [Ri ght Upper Arm] 156/107 H 197/116 H 190/117 H Pulse Oximetry 99 99 99 Oxygen Delivery Me thod Room Air Room Air Room Air 05/31/23 20:22 05/31/23 20:30 05/31/23 20:32 Temperature Pulse Rate 93 85 91 Pulse Rate [Pulse Oximeter] Respiratory Rate Blood Pressure 187/117 H Blood Pressure [Le ft Arm] Blood Pressure [Ri ght Upper Arm] Pulse Oximetry 98 97 98 Oxygen Delivery Me thod 05/31/23 20:45 05/31/23 21:00 05/31/23 21:02 Temperature Pulse Rate 95 97 88 Pulse Rate [Pulse Oximeter] Respiratory Rate Blood Pressure 185/116 H Blood Pressure [Le ft Arm] Blood Pressure [Ri ght Upper Arm] Pulse Oximetry 98 98 99 Oxygen Delivery Me thod 05/31/23 21:15 05/31/23 21:30 05/31/23 21:50 Temperature Pulse Rate 95 87 Pulse Rate [Pulse Oximeter] 100 Respiratory Rate 18 Blood Pressure Blood Pressure [Le ft Arm] 162/99 H Blood Pressure [Ri ght Upper Arm] Pulse Oximetry 99 97 96 Oxygen Delivery Me thod Room Air 05/31/23 23:00 05/31/23 23:00 05/31/23 23:00 Temperature 97.9 F Pulse Rate Pulse Rate [Pulse Oximeter] 93 Respiratory Rate 18 18 Blood Pressure Blood Pressure [Le ft Arm] 172/102 H Blood Pressure [Ri ght Upper Arm] Pulse Oximetry 95 95 95 Oxygen Delivery Me thod Room Air Room Air Room Air 06/01/23 03:00 06/01/23 07:39 06/01/23 07:39 Temperature 98.6 F 98.3 F Pulse Rate Pulse Rate [Pulse Oximeter] 83 77 77 Respiratory Rate 16 16 16 Blood Pressure Blood Pressure [Le ft Arm] 163/101 H 142/85 H Blood Pressure [Ri ght Upper Arm] Pulse Oximetry 96 95 Oxygen Delivery Me thod Room Air Room Air 06/01/23 07:39 06/01/23 11:05 Temperature 97.8 F Pulse Rate Pulse Rate [Pulse Oximeter] 76 Respiratory Rate 16 16 Blood Pressure Blood Pressure [Le ft Arm] 137/85 Blood Pressure [Ri ght Upper Arm] Pulse Oximetry 95 98 Oxygen Delivery Me thod Room Air Room Air DS: Data Data Completed and Pending Labs on day of discharge: Labs from last 24 hours 06/01/23 05/31/23 06:03 18:55 WBC 7.71 9.05 RBC 4.46 5.11 Hgb 14.5 16.4 Hct 42.0 47.3 MCV 94 93 MCH 33 32 MCHC 35 35 RDW Coeff of Po 11.7 Plt Count 181 204 Neut % (Auto) 86.0 H Lymph % (Auto) 10.2 L Josephine % (Auto) 3.4 Eos % (Auto) 0.2 Baso % (Auto) 0.1 Neut # (Auto) 7.80 H Lymph # (Auto) 0.90 Josephine # (Auto) 0.30 Eos # (Auto) 0.02 Baso # (Auto) 0.01 Abs Immat Gran (auto) 0.01 Imm/Tot Granulo (auto) 0.1 Sodium 135 136 Potassium 3.7 3.6 Chloride 103 100 Carbon Dioxide 26 25 Anion Gap 6 L 11 BUN 8 8 Creatinine 0.6 0.6 Estimated Creat Clear 147.25 147.25 Estimated GFR 120 120 Glucose 87 123 H Lactate 0.7 1.0 Calcium 8.4 9.2 Phosphorus 3.2 Magnesium 2.0 Total Bilirubin 1.2 1.4 Direct Bilirubin 0.3 0.4 AST 28 32 ALT 17 19 Alkaline Phosphatase 50 69 C-Reactive Protein 3.9 H 3.0 H Total Protein 6.6 8.3 Albumin 3.6 4.6 Triglycerides 176 H Cholesterol 138 LDL Cholesterol, Calc 69 HDL Cholesterol 34 L Lipase 3767 H 3688 H Ethyl Alcohol < 0.[address] scan - abdomen: Radiologist's impression: INDICATION: Pancreatitis, worsening pain TECHNIQUE: CT abdomen and pelvis acquired with IV contrast. COMPARISON: April 23, 2021 FINDINGS: Lower chest: Unremarkable. Liver: Unremarkable. Spleen: Unremarkable. Pancreas: Diffuse peripancreatic edema/stranding, compatible with acute pancreatitis. Stable calcific rimmed 1.8 cm oval area at the pancreatic tail, again suggesting chronic pseudocyst are similar. Increased number calcifications in the pancreatic tail area, likely related to chronic pancreatitis. There is also a new focal calcification at the pancreatic head, image 54 of series 2, about 6 millimeters in diameter. It would be difficult to entirely exclude intraductal stone. No evidence of pancreatic necrosis. No new pseudocyst identified. Gallbladder and bile ducts: Unremarkable. There is no intrahepatic nor extrahepatic biliary enlargement. Kidneys: Unremarkable. Adrenal glands: Unremarkable. GI tract: Unremarkable. Appendix is not seen, multiple metallic surgical clips about the cecum area could represent prior appendectomy. Vascular structures: Negative. No sign of aneurysm. Lymph nodes: Unremarkable. Miscellaneous: Stable small fat containing left inguinal hernia. No free air or significant free fluid. Pelvic Organs: Small amount of free fluid/ascites within the dependent pelvis, otherwise, unremarkable. Bones: Unremarkable for age. IMPRESSION: 1. Acute pancreatitis with diffuse peripancreatic edema, no evidence of pancreatic necrosis/abscess/new pseudocyst. Stable 2 cm peripherally calcified structure within the pancreatic tail. New/progressive punctate calcifications and pancreatic tail, suggesting chronic pancreatitis changes. New 6 millimeter focal calcification in the pancreatic head, indeterminate. Common bile duct calcification/stone not entirely excludable, clinical/laboratory correlation recommended. 2. Otherwise, no new/acute abnormality. 3. Probably status post appendectomy, as above. Discharge Plan Discharge Disposition: Home, Self-Care Date of Admission: 05/31/23 22:01 Attending Provider on Discharge: Hubert Pineda Primary Care Provider: Mary Snow Condition: Stable Anticipated Discharge Date/Time: 06/01/23 14:00 Discharge Medications: New oxycodone 5 mg capsule 5 mg PO Q4H PRN (Reason: pain) Qty: 10 0RF No Action No Known Home Medications Discharge Orders: Discharge Order (Routine); Ordered 06/01/23 Ordered By: Hubert Pineda Additional Instructions: Abdominal pain is due to pancreatitis. You have both acute and chronic pancreatitis. This is caused primarily by alcohol and secondarily by smoking. It is critical that you stop drinking alcohol or you will continue to have abdominal pain and recurrent hospitalizations for this. It is difficult to stop drinking alcohol. Most people need help with this. We can offer you resources for this or you can talk with your doctor about possible resources for this. Activity Level: No Restrictions Discharge Diet: Regular Follow Up Appointments: Mary Snow, DARRYL [Primary Care Provider] - Forms: Truist Info Instructions
--- NOTE | 2023-06-01 14:26 | PC.NURSE ---
Discharge: Patient pleasant and cooperative. Patient vitally stable, lungs clear, BS WNL, IV removed catheter intact. Patient independent in room. Patient rates abdominal pain at most 6/10, 5 mg oxy given once and 1mg of dilauded given once. Patient tolerating regular diet, no increased pain with lunch. Patient urinating. Patient left the floor by foot to home at 1421. Patient had no further questions regarding discharge.
== END 2023-06-01 14:21 | disposition home or self-care (01) ==
LOC: ED 21:46 → MEDSURG 06-01 11:11
PROVIDERS: Admitting Provider Internal Medicine; Emergency Provider Emergency Medicine; PCP Physician Assistant Medical; Visit Provider Internal Medicine
DX: K85.90 Acute pancreatitis without necrosis or infection, unspecified (principal); K86.0 Alcohol-induced chronic pancreatitis; F10.20 Alcohol dependence, uncomplicated; E86.0 Dehydration; F17.200 Nicotine dependence, unspecified, uncomplicated; K85.20 Alcohol induced acute pancreatitis without necrosis or infection; F41.9 Anxiety disorder, unspecified
CPT/HCPCS: 36415; 74177; 80048; 80061; 80076; 82077; 83605; 83690; 83735; 84100; 85025; 85027; 86140; 96361; 96374; 96375; 96376; 99284; A9270; G0378; J1170; J2405; J7030; Q9967

== ENCOUNTER 2023-06-27 12:40 | Emergency (ER) | payer OTHER, SELFPAY ==
[2023-06-27 12:48] VITALS: BP 151/104; PULSE 112; RESP 18; TEMP 36.3; O2SAT 100; BMI 25.1
--- NOTE | 2023-06-27 12:59 | ED.ABDPAIN ---
HPI - Abdominal Pain General Time Seen by Provider: 12:59 Date Seen: 06/27/23 Chief Complaint: Abdominal Pain Stated Complaint: Pancreatitis Time Seen by Provider: 06/27/23 12:58 Source: patient and RN notes reviewed Mode of arrival: ambulatory Limitations: no limitations History of Present Illness HPI narrative: This 48-year-old male is coming in with abdominal pain that he is concerned is pancreatitis. He has a history of alcohol-induced pancreatitis. He still has his gallbladder. He woke around 5:00 a.m. this morning with severe epigastric pain, nausea with a couple episodes of emesis. Had a normal bowel movement today. [place] hot and sweaty from the pain, no definite fever. He is not had any alcohol since the end of May when he was . He does endorse eating a lot of fatty food yesterday with Thanksgiving. He has had his appendix out, denies any other abdominal surgeries. Tried ibuprofen at home with out any alleviation of pain. MD elicited complaint: abdominal pain Related Data Home Medications Medication Instructions Recorded Confirmed No Known Home Medications 06/27/23 06/27/23 Previous Rx's Medication Instructions Recorded hydromorphone 2 mg tablet 2 mg PO Q4-6H PRN pain #20 tabs 06/27/23 (Dilaudid) ondansetron 4 mg disintegrating 4 mg PO Q6H PRN nausea and 06/27/23 tablet vomiting #20 tabs Allergies Allergy/AdvReac Type Severity Reaction Status Date / Time No Known Allergies Allergy Unknown Verified 05/31/23 19:18 Review of Systems Status of ROS Reports: 6 or more systems reviewed and unremarkable except as noted in History and below [facility] Medical History Tobacco dependence ?F17.200 - Nicotine dependence, unspecified, uncomplicated (ICD-10) Chronic pancreatitis due to chronic alcoholism ?K86.0 - Alcohol-induced chronic pancreatitis (ICD-10) ?F10.20 - Alcohol dependence, uncomplicated (ICD-10) Acute pancreatitis ?K85.90 - Acute pancreatitis without necrosis or infection, unspecified (ICD-10) Psoriasis ?L40.9 - Psoriasis, unspecified (ICD-10) Cocaine use ?F14.90 - Cocaine use, unspecified, uncomplicated (ICD-10) Alcoholism ?F10.20 - Alcohol dependence, uncomplicated (ICD-10) Non-ulcer dyspepsia ?K30 - Functional dyspepsia (ICD-10) History of pancreatitis ?Z87.19 - Personal history of other diseases of the digestive system (ICD-10) Alcohol-induced acute pancreatitis ?K85.20 - Alcohol induced acute pancreatitis without necrosis or infection (ICD-10) Acute sinusitis ?J01.90 - Acute sinusitis, unspecified (ICD-10) Surgical History History of appendectomy ?Z90.49 - Acquired absence of other specified parts of digestive tract (ICD-10) Family History Father Lung cancer Social History Narrative: Smoker- 1 ppd What is your current living situation?: I presently have a place to live Problems where you live: no known problems Problems where you live details: NA In the past 12 months, utilities in danger of being shut off: no In past 12 months, lack of transportation kept you from medical appts, meetings, work, or getting things needed for daily living: no In the past 12 mos, have been you worried that your food would run out before you had money to buy more?: never true In the past 12 mos, the food you bought just didn't last and you didn't have money to buy more?: never true Smoking Status: Current every day smoker What tobacco products do you use: cigarettes Smoking packs per day: 1 Smoking cigarettes per day: 20.0 Do you use any of these nicotine containing products: None Second hand tobacco smoke exposure: No How often do you have a drink containing alcohol: monthly or less How many standard drinks containing alcohol do you have on a typical day: 3 or 4 How often do you have six or more drinks on one occasion: Never AUDIT-C Alcohol total score: 2 Non-prescribed substance use: denies use Caffeine: Yes (1 cup/coffee) How often does anyone, including family, friends and others, physically hurt you: never How often does anyone, including family, friends and others, insult or talk down to you: never How often does anyone, including family, friends and others, threaten you with harm: never How often does anyone, including family, friends and others, scream or curse at you: never Little interest or pleasure in doing things: several days Feeling down, depressed, or hopeless: not at all service: No Exam Const: Vital Signs, click to edit/add: Vital Signs - 24 hr 06/27/23 12:48 06/27/23 13:28 06/27/23 15:50 Temperature 97.3 F L Pulse Rate [Pulse Oximeter] 112 H 85 Respiratory Rate 18 18 Blood Pressure [Ri ght Upper Arm] 151/104 H 182/97 H Pulse Oximetry 100 99 99 Oxygen Delivery Me thod Room Air Room Air Scott is a very pleasant 48-year-old gentleman seen in exam room 4. He is alert, interactive, no apparent stress. Sclera clear, conjugate gaze, able to speak in complete sentences. Lungs are clear, no tachypnea or accessory muscle use. CV regular rate and rhythm, no murmur, normal S1 and S2. Abdomen is not distended and is soft but is tender in the epigastric and right upper quadrant. No rebound or guarding noted. Bowel sounds are present. Documenting provider has reviewed patient's vital signs: yes Course Course ED Course: Will establish an IV, draw appropriate labs including pancreatic enzymes. Will initiate pain management with Dilaudid, Zofran for nausea and start IV fluids. He will have CT imaging. Certainly sounds like it might be pancreatitis for him. Denies any alcohol, may need to consider gallbladder pathology as causative etiology. Other abdominal entities such as gastritis, ulcer disease, developing gastroenteritis, other intra-abdominal pathology are certainly all potential. Will be getting full complement of labs and imaging. Reevaluation(s) Time of Reevaluation #1: 14:13 Reevaluation #1: Patient is complaining of increased pain to nursing staff, have ordered subsequent dilaudid dosing. Awaiting on his labs and his CT to be read by Radiology. Time of Reevaluation #2: 15:06 Reevaluation #2: Have reviewed with patient and his the CT findings, radiologist commented on possibility of autoimmune pancreatitis. I absolutely feel that regardless of what happens, he ultimately needs to go for GI consultation. He is trying to decide if he will need hospitalization vs trial at home with zofran/pain meds. Did provide them with a copy of the CT report. Reviewed lipase in the 1400 range. Time of Reevaluation #3: 16:08 Reevaluation #3: Patient is made the decision to try a outpatient management of his pancreatitis, will send in oral Dilaudid and Zofran for him. Vital Signs Vital signs: Initial Vital Signs Temperature 97.3 F L 06/27/23 12:48 Temperature Source Temporal Artery Scan 06/27/23 12:48 Pulse Rate 112 H 06/27/23 12:48 Respiratory Rate 18 06/27/23 12:48 Blood Pressure 151/104 H 06/27/23 12:48 Blood Pressure Mean 119 H 06/27/23 12:48 Blood Pressure Position Supine 06/27/23 12:48 Pulse Oximetry 100 06/27/23 12:48 Oxygen Delivery Method Room Air 06/27/23 12:48 Vital Signs Temperature 97.3 F L 06/27/23 12:48 Pulse Rate 112 H 06/27/23 12:48 Respiratory Rate 18 06/27/23 12:48 Blood Pressure 151/104 H 06/27/23 12:48 Pulse Oximetry 100 06/27/23 12:48 Oxygen Delivery Method Room Air 06/27/23 12:48 Temperature 97.3 F L 06/27/23 12:48 Pulse Rate 85 06/27/23 15:50 Respiratory Rate 18 06/27/23 15:50 Blood Pressure 182/97 H 06/27/23 15:50 Pulse Oximetry 99 06/27/23 15:50 Oxygen Delivery Method Room Air 06/27/23 15:50 Medications Administered Medications: Generic Name Dose Route Start Last Admin Trade Name Freq PRN Reason Stop Dose Admin Sodium Chloride 1,000 mls @ 1,000 mls/hr 06/27/23 15:09 06/27/23 15:36 0.9 % Sodium Chloride 1000 Ml IV 06/27/23 16:08 1,000 mls/hr .Q1H SUBHASH Administration Discontinued Medications Generic Name Dose Route Start Last Admin Trade Name Freq PRN Reason Stop Dose Admin Hydromorphone HCl 0.5 mg 06/27/23 13:03 06/27/23 13:22 Hydromorphone 0.5 Mg/0.5 Ml Inj IVP 06/27/23 13:04 0.5 mg ONCE ONE Administration Hydromorphone HCl 0.5 mg 06/27/23 14:12 06/27/23 14:17 Hydromorphone 0.5 Mg/0.5 Ml Inj IVP 06/27/23 14:13 0.5 mg ONCE ONE Administration Hydromorphone HCl 0.5 mg 06/27/23 15:46 06/27/23 15:55 Hydromorphone 0.5 Mg/0.5 Ml Inj IVP 06/27/23 15:47 0.5 mg ONCE ONE Administration Sodium Chloride 1,000 mls @ 500 mls/hr 06/27/23 13:04 06/27/23 15:25 0.9 % Sodium Chloride 1000 Ml IV 06/27/23 15:03 Infused .Q2H SUBHASH Infusion Ondansetron HCl 4 mg 06/27/23 13:03 06/27/23 13:22 Ondansetron 2 Mg/Ml Inj IVP 06/27/23 13:04 4 mg ONCE ONE Administration MDM - Abdominal Pain Lab Data Attestation: I reviewed the patient's lab results. Labs: Lab Results 06/27/23 Range/Units 13:20 WBC 7.54 (4.50-11.00) K/uL RBC 4.98 (4.30-5.90) m/uL Hgb 16.0 (13.5-17.5) gm/dL Hct 46.3 (37.0-53.0) % MCV 93 (80-100) fL MCH 32 (26-34) pg MCHC 35 (32-36) gm/dL RDW Coeff of Po 11.7 (11.5-15.5) % Plt Count 241 (140-440) K/uL Neut % (Auto) 82.8 H (42.0-72.0) % Lymph % (Auto) 13.1 L (20-44) % Mchenry % (Auto) 3.8 (0.0-11.0) % Eos % (Auto) 0.1 (0.0-7.0) % Baso % (Auto) 0.1 (0.0-3.0) % Neut # (Auto) 6.20 (1.7-7.0) K/uL Lymph # (Auto) 1.00 (0.90-2.90) K/uL Mchenry # (Auto) 0.30 (0.00-0.90) K/UL Eos # (Auto) 0.01 (0.00-0.50) K/uL Baso # (Auto) 0.01 (0.00-0.30) K/uL Abs Immat Gran (auto) 0.01 (0.00-0.30) K/uL Imm/Tot Granulo (auto) 0.1 % Sodium 138 (135-149) mmol/L Potassium 4.1 (3.6-5.1) mmol/L Chloride 104 (96-114) mmol/L Carbon Dioxide 22 (20-32) mmol/L Anion Gap 12 (7-15) mEq/L BUN 17 (5-24) mg/dL Creatinine 0.7 (0.5-1.5) mg/dL Estimated Creat Clear 126.21 Estimated GFR 114 ml/min Glucose 160 H (60-115) mg/dL Lactate 1.3 (0.5-1.9) mmol/L Calcium 9.2 (8.4-10.6) mg/dL Total Bilirubin 1.3 (0.1-1.5) mg/dL Direct Bilirubin 0.2 (0.0-0.5) mg/dL AST 29 (12-35) U/L ALT 24 (4-50) U/L Alkaline Phosphatase 71 (40-150) U/L C-Reactive Protein 0.5 (0.5-1.0) mg/dL Total Protein 8.0 (6.0-8.3) g/dL Albumin 4.8 (3.3-5.0) g/dL Amylase 190 H (18-89) U/L Lipase 1415 H (23-300) U/L Imaging Data CT scan - abdomen: Attestation: I have reviewed the pertinent imaging results. Radiologist's impression: Patient: SCOTT ACOSTA Facility:?[facility] Patient ID:?[id number] Site Patient ID:?[id number]. Site :?[id number] Study:?CT Abdomen/Pelvis W/ISOVUE 370 81CC-06/27/2023 1:37:44 PM Ordering Physician:?Hemant Alaniz Final Report: INDICATION: Nausea, vomiting, abdominal pain, history of pancreatitis. COMPARISON: 06/13/2020, 08/20/2020, 04/23/2021, 05/31/2023 TECHNIQUE: CT of the abdomen and pelvis after the administration of intravenous contrast. Multiplanar axial, coronal, and sagittal reformats were reconstructed. Contrast: 81 mL Isovue 370 intravenously. Oral contrast was not administered. FINDINGS: Lung bases: Normal. Liver: Hepatic steatosis. No masses. Normal vasculature. Gallbladder and biliary tree: Normal gallbladder. No biliary duct dilation. Pancreas: Diffusely edematous pancreatic parenchyma with a relatively thin rim of peripancreatic edema. No areas of pancreatic or peripancreatic necrosis. The pancreatic duct is visible but not dilated. Coarse calcifications in the pancreatic head, uncinate process, and at the pancreatic tail. Well-circumscribed peripherally calcified fluid density lesion at the pancreatic tail is unchanged. The mesenteric, splenic, and portal vein are patent. No arterial pseudoaneurysm or aneurysm seen. Minimally inflamed adjacent duodenum. No pelvic ascites.. Spleen: Normal. Normal size. Adrenal glands: Normal. No nodules. Kidneys and bladder: Normal size and position. No cyst or mass. No calculi. No urinary tract dilation. The urinary bladder is normal. GI: Normal. No dilated segments. No abnormal bowel wall thickening or hyperenhancement. Moderate stool burden. Appendectomy. Vessels: Aorta and major branches, including the mesenteric vessels: Patent. Normal caliber. Moderate atherosclerotic plaques. IVC and tributaries: Normal. Mesenteric and portal veins: Normal. Peritoneum: No free fluid. Lymph nodes: No adenopathy. Pelvis: Physiologic appearance of the reproductive organs. Bones: No fractures. No focal bone lesions. Normal for age. Abdominal wall: Normal. IMPRESSION: Interstitial edematous pancreatitis involving the entire pancreas, with unchanged sequela of prior or chronic pancreatitis. Pattern is similar compared to prior and is suggestive of autoimmune pancreatitis, although the persistent hepatic steatosis is a confounding factor as steatosis and pancreatitis are often both the sequela of alcohol use. No necrosis or complication is seen. Please note that all CT scans at this facility use dose modulation, iterative reconstruction, and/or weight-based dosing when appropriate to reduce radiation dose to as low as reasonably achievable. Dictated by Avelina Lizarraga MD @ 06/27/2023 2:39:53 PM (Electronic Signature) Discharge Plan Discharge Clinical Impression: Pancreatitis Patient Disposition: Home, Self-Care Condition: Stable Instructions: Pancreatitis (ED) Additional Instructions: If you are unable to take in clear liquids, pain is not controlled with the oral dilaudid, feel you are worsening, need to return for further evaluation. You do need to be referred at some point to a GI specialist, the question of autoimmune pancreatitis has been brought up on the CT scan today. For this acute episode, can drink fluids, take frequent small sips of fluids. You may advance your diet to solid foods as you are improving from the pancreatitis. There is also prescription for Zofran at the pharmacy, this will help alleviate nausea and vomiting for you. Please schedule a follow-up in clinic this next week with your primary care provider, they can help refer you to a GI specialist. Activity Level: Activity as Tolerated Discharge Diet: Clear Liquid Prescriptions: New ondansetron 4 mg tablet,disintegrating 4 mg PO Q6H PRN (Reason: nausea and vomiting) Qty: 20 0RF hydromorphone [Dilaudid] 2 mg tablet 2 mg PO Q4-6H PRN (Reason: pain) Qty: 20 0RF No Action No Known Home Medications Follow Up/Referrals: Mary Snow PA-C [Primary Care Provider] - Stand Alone Forms: [employer] Info Instructions
--- NOTE | 2023-06-27 13:03 | CRLHL7_ITS ---
For Patients: As a result of the 21st Century Cures Act, medical imaging exams and procedure reports are released immediately into your electronic medical record. You may view this report before your referring provider. If you have questions, please contact your health care provider. INDICATION: Nausea, vomiting, abdominal pain, history of pancreatitis. COMPARISON: 06/13/2020, 08/20/2020, 04/23/2021, 05/31/2023 TECHNIQUE: CT of the abdomen and pelvis after the administration of intravenous contrast. Multiplanar axial, coronal, and sagittal reformats were reconstructed. Contrast: 81 mL Isovue 370 intravenously. Oral contrast was not administered. FINDINGS: Lung bases: Normal. Liver: Hepatic steatosis. No masses. Normal vasculature. Gallbladder and biliary tree: Normal gallbladder. No biliary duct dilation. Pancreas: Diffusely edematous pancreatic parenchyma with a relatively thin rim of peripancreatic edema. No areas of pancreatic or peripancreatic necrosis. The pancreatic duct is visible but not dilated. Coarse calcifications in the pancreatic head, uncinate process, and at the pancreatic tail. Well-circumscribed peripherally calcified fluid density lesion at the pancreatic tail is unchanged. The mesenteric, splenic, and portal vein are patent. No arterial pseudoaneurysm or aneurysm seen. Minimally inflamed adjacent duodenum. No pelvic ascites.. Spleen: Normal. Normal size. Adrenal glands: Normal. No nodules. Kidneys and bladder: Normal size and position. No cyst or mass. No calculi. No urinary tract dilation. The urinary bladder is normal. GI: Normal. No dilated segments. No abnormal bowel wall thickening or hyperenhancement. Moderate stool burden. Appendectomy. Vessels: Aorta and major branches, including the mesenteric vessels: Patent. Normal caliber. Moderate atherosclerotic plaques. IVC and tributaries: Normal. Mesenteric and portal veins: Normal. Peritoneum: No free fluid. Lymph nodes: No adenopathy. Pelvis: Physiologic appearance of the reproductive organs. Bones: No fractures. No focal bone lesions. Normal for age. Abdominal wall: Normal. IMPRESSION: Interstitial edematous pancreatitis involving the entire pancreas, with unchanged sequela of prior or chronic pancreatitis. Pattern is similar compared to prior and is suggestive of autoimmune pancreatitis, although the persistent hepatic steatosis is a confounding factor as steatosis and pancreatitis are often both the sequela of alcohol use. No necrosis or complication is seen. Please note that all CT scans at this facility use dose modulation, iterative reconstruction, and/or weight-based dosing when appropriate to reduce radiation dose to as low as reasonably achievable. Dictated by Avelina Lizarraga MD @ 06/27/2023 2:39:53 PM (Electronically Signed)
--- OUTSIDE RECORDS SUMMARY | 2023-06-27 13:19 | XMS_ITS | Continuity of Care Document ---
Author Name Unknown Organization [facility] Address [address] [address] [place] [address] Phone Care Team Providers Care [employer] Name Role Phone Milo Brown MD Unavailable Unavailable Medications Medication Instructions Dosage Effective Dates (start - stop) Status Comments VITAMIN B-12 (unknown strength) take 1 tablet daily Not Available - Active Procedures Procedure Date Offic/outpt E&m Estab Mod-hi 2 13 Subsqt Hosp-da E&m Minr Compl 3 Subsqt Hosp-da E&m Stable 15 M 13 Subsqt Hosp-da E&m Minr Compl 3 Subsqt Hosp-da E&m Minr Compl 3 Init Hosp-da E&m Mod Severity 3 Advance Directives Directive Yes / No Effective Date File Name Resuscitation Not Answered N/A N/A Life Support Not Answered N/A N/A Intubation Not Answered N/A N/A Antibiotics Not Answered N/A N/A IV Fluid Support Not Answered N/A N/A Tube Feed Not Answered N/A N/A Other Directive N/A N/A WARNING:The information contained in this section is historical and is provided for information only and does not constitute a legal document or any assurance that the information is still accurate. Please verify the information with the hinojosa of the legal document before using it for clinical purposes. Encounters Encounter Description Practice Location Reason(s) For Visit Diagnoses Date Provider Providers Copied on Encounter Offic/outpt E&m Estab Mod-hi 2 [facility], [address] [address], [place], [id number], [place] tel:[phone] [facility] Pancreatitis (chief complaint) Acute Pancreatitis 3 Kevin Pedraza. [address] [facility] [facility] [address], [place], [place], [id number], [place]. tel:[phone] Referring Provider: Referral Self, USE FOR SELF REFERRALS. Subsqt Hosp-da E&m Minr Compl [facility], [address] [address], [place], [place], [id number], [place] tel:[phone] [facility] No Information Sep-1 0- 3 No Information Subsqt Hosp-da E&m Stable 15 M [facility], [address] [address], [place], [place], [id number], [place] tel:[phone] [facility] No Information Sep-0 3 Dorian Moraes. [address] [facility] [facility] [address], [place], [id number], [place]. tel:[phone] Referring Provider: Preston Alarcon DO, [address] [facility] [address], [place], [address] . tel:[phone] Subsqt Hosp-da E&m Minr Compl [facility], [address] [address], [place], [place], [id number], [place] tel:[phone] [facility] No Information Sep-0 3 Diane Bo. [address] [facility], [facility] [address], [place], [place], [address], [place]. tel:[phone] Referring Provider: Betzy FONTENOT, [address] [facility] [address], [place], [address] . tel:[phone] Init Hosp-da E&m Mod Severity [facility], [address] [address], [place], [place], [address], [place] tel:[phone] [facility] No Information Sep-0 3 Kory Hdz. [address] [facility], [facility] [address], [place], [place], [id number], [place]. tel:[phone] Referring Provider: Andreina Spencer, [address] [facility] [address], [place], [address] . tel:[phone] Family History Family Member Type Diagnosis Age At Onset First degree family history Problem (finding) No history of Crohn's First degree family history Problem (finding) No history of Cancer, colon First degree family history Problem (finding) No history of Ulcerative Colitis First degree family history Problem (finding) No Family history of No history of Colon Polyps Father Problem (finding) malignant neoplasm of l laurie Payers Payer name Insurance type Covered alliance party ID Mann trimble(s) [employer] CI [id number] Social History Type Description Quantity Date Captured Comments Alcohol Use Details No Caffeine Use Details Unknown Tobacco Use Status Smoking Status No Information Sex Male Chief Complaint And Reason For Visit From encounter dated '05/23/2013 08:30'. Pancreatitis (chief complaint) Reason For Referral Reason For Referral No Information History Of Present Illness Encounter Date Complaint History Of Prese nt Illness No Information Functional Status Date Functional Assessmen t No Information Instructions Date Instruction Additional Infor mation No Information Assessments Type Assessment Date No Information Patient Care Teams Name Effective Dates (start - stop) Status Members No Information
[2023-06-27] MEDS: 0.9 % SODIUM CHLORIDE 1000 ml 1,000 ML 500 ML IV (13:21)
[2023-06-27] MEDS: ONDANSETRON 2 MG/ML inj 4 MG IVP (13:22)
[2023-06-27] MEDS: HYDROmorphone 0.5 mg/0.5 ml inj IVP ×3 (13:22→15:55)
[2023-06-27 13:28] VITALS: O2SAT 99
[2023-06-27 13:30] LABS: Lactate* 1.3 mmol/L (0.5-1.9)
[2023-06-27 13:41] LABS: Red Blood Count 4.98 m/uL (4.30-5.90); White Blood Count* 7.54 K/uL (4.50-11.00)
[2023-06-27 13:42] LABS: Basophils Absolute Auto 0.01 K/uL (0.00-0.30); Basophils Percent Auto 0.1 % (0.0-3.0); Eosinophils Absolute Auto 0.01 K/uL (0.00-0.50); Eosinophils Percent Auto 0.1 % (0.0-7.0); Hematocrit 46.3 % (37.0-53.0); Immature Granulocytes Abs Auto 0.01 K/uL (0.00-0.30); Immature Granulocytes Pct Auto 0.1 %; Lymphocytes Percent Auto 13.1 % (20-44); Mean Corpuscular HGB Conc 35 gm/dL (32-36); Mean Corpuscular Hemoglobin 32 pg (26-34); Mean Corpuscular Volume 93 fL (80-100); Monocytes Percent Auto 3.8 % (0.0-11.0); Neutrophils Percent Auto 82.8 % (42.0-72.0); Platelet Count* 241 K/uL (140-440); RDW Coefficient of Variation % 11.7 % (11.5-15.5)
[2023-06-27 13:44] LABS: Slide Review Reflex No
[2023-06-27 13:59] LABS: Albumin* 4.8 g/dL (3.3-5.0); Chloride* 104 mmol/L (96-114)
[2023-06-27 14:00] LABS: Potassium* 4.1 mmol/L (3.6-5.1); Sodium* 138 mmol/L (135-149)
[2023-06-27 14:02] LABS: Amylase* 190 U/L (18-89); Anion Gap 12 mEq/L (7-15); Carbon Dioxide* 22 mmol/L (20-32); Creatinine* 0.7 mg/dL (0.5-1.5); Est. Creatinine Clearance* 126.21; Estimated Glomerular Filt Rate 114 ml/min
[2023-06-27 14:03] LABS: Alanine Aminotransferase* 24 U/L (4-50); Alkaline Phosphatase* 71 U/L (40-150); Aspartate Amino Transferase* 29 U/L (12-35); Bilirubin Direct* 0.2 mg/dL (0.0-0.5); Bilirubin Total* 1.3 mg/dL (0.1-1.5); Blood Urea Nitrogen* 17 mg/dL (5-24); Calcium* 9.2 mg/dL (8.4-10.6); Glucose* 160 mg/dL (60-115); Lipase* 1415 U/L (23-300)
[2023-06-27 14:05] LABS: C Reactive Protein* 0.5 mg/dL (0.5-1.0)
[2023-06-27] MEDS: 0.9 % SODIUM CHLORIDE 1000 ml 1,000 ML IV (15:36)
[2023-06-27 15:50] VITALS: BP 182/97; PULSE 85; RESP 18; O2SAT 99
== END 2023-06-27 16:23 | disposition home or self-care (01) ==
PROVIDERS: Emergency Provider Family Medicine; PCP Physician Assistant Medical
DX: K85.90 Acute pancreatitis without necrosis or infection, unspecified (principal)
CPT/HCPCS: 36415; 74177; 80053; 82150; 82248; 83605; 83690; 85025; 86140; 94761; 96374; 96375; 96376; 99284; J1170; J2405; J7030; Q9967

== ENCOUNTER 2023-09-18 14:27 | Outpatient (CLI) | payer OTHER, SELFPAY ==
--- OUTSIDE RECORDS SUMMARY | 2023-09-18 14:29 | XMS_ITS | Encounter Summary ---
Author Name Unknown Organization [facility] Address [address] [place] [address] Care Team Providers Care Street Flusher Driver Name Role Phone Jairo Brock MD Primary Care Provider + [phone] Reason for Referral * (Routine) - New Request Specialty Diagnoses / Procedures Referred By Contagnes t Referred To Contact Diagnoses Right shoulder pain, unspecified chronicity Procedures Triamcinolone Acet Inj Nos: (per 10 mg) Chandan Sotelo PA-C [address] [place] [address] Referral ID Status Reason Start Date Expiration Date V isits Requested Visits Authorized [id number] New Request 08/06/2023 11/04/2024 1 1 VERY AND MAIL SORTER Reason for Visit * Reason Comments SHOULDER PAIN Encounter Details Date Type Department Care Team (Late st Contact Info) Description 08/05/2023 8:50 AM DELIVERY AND MAIL SORTER Office Visit [facility] [address] [place] [address] Chandan Sotelo PA-C [address] [place] [address] Right shoulder pain, unspecified chronicity (Primary Dx) Social History Tobacco Use Types Packs/Day Years Used Date Smoking Tobacco: Some Days Cigarettes Smokeless Tobacco: Never Comments:Smoking History Pac ks/day: Alcohol Use Standard Drinks/Week Comments Yes 0 (1 standard drink = 0.6 oz pur e alcohol) 30 beers/week Sex and Gender Information Value Date Recorded Sex Assigned at Not on file Gender Identity Not on file Sexual Orientation Not on file documented as of this encounter Last Filed Vital Signs Vital Sign Reading Time Taken Comments Blood Pressure - - Pulse - - Temperature - - Respiratory Rate - - Oxygen Saturation - - Inhaled Oxygen Concentration - - Weight 74.8 kg (165 lb) 08/05/2023 8:49 AM DELIVERY AND MAIL SORTER Height 172.7 cm (5' 8) 08/05/2023 8:49 AM DELIVERY AND MAIL SORTER Body Mass Index 25.09 08/05/2023 8:49 AM DELIVERY AND MAIL SORTER documented in this encounter Patient Instructions * Patient Instructions* Karen Moran MA - 08/05/2023 8:50 AM DELIVERY AND MAIL SORTER [facility]. Chandan Sotelo PA-C Sports Medicine and General Orthopedics Medication Requests: Prescriptions are not filled on weekends or on weekdays after 3:00 PM. For all medication refills: Request a refill using [employer] or contact your pharmacy. What is Know Your Cost? Know Your Cost is a service for patients and patient/members to call and receive personalized cost information and estimates across our care group. The phone number is (COST) Thursday - Thursday 8 AM to 5 PM Advanced Imaging Scheduling: To schedule an MRI, Ultrasound, or Image guided injection at [facility] please call [phone]. To schedule an MRI or CT at a [facility] location please call [phone]. [facility] [employer] [address] [place] [address] (Phone) Email: [email or web address] Release of Information: Radiology/Imaging [address] [place] [address] (Phone) Health Information Management [address] [place] [address] (Phone) [employer] VERY AND MAIL SORTER documented in this encounter Progress Notes * Chandan Sotelo PA-C - 08/05/2023 8:50 AM CST Kp Hansen [id number] [address] [facility] Follow-Up 08/05/2023 Chief Complaint: Right shoulder pain. History of Present Illness: Kp Hansen is a 48 y.o. male who presents for follow-up evaluation of his right shoulder, noting the pain is still present in the same spot. He was previously seen by me, received an injection with moderate relief, and that only lasting for about 2 days. No new injuries or trauma. Please refer to my note dated 07/03/2023 for past medical history. Review of Systems: Positive for right shoulder pain.. No history of other heart, lung, liver, GI, or renal diseases, cancers, diabetes mellitus, or arthritis. Physical Exam: General: The patient is in no acute distress. Neuro: Answers questions appropriately. Alert and oriented x 3. Skin: Skin is cool to touch without erythema, ecchymosis, or lesions. Right Shoulder: Most of the tenderness is about the anterior biceps as well as deep inside the shoulder joint. Rotator cuff is intact with 5/5 strength. AC joint is completely nontender. Resistance of the biceps is nontender today. Cervical Spine: Full ROM which is nontender. 2+ radial pulse. Imaging: MR Shoulder Rt WO IV Contrast (07/06/23): IMPRESSION: 1. Irregularity of the superior labrum. It is uncertain if this represents an acute labral tear versus sequela of prior surgery. 2. Moderate tendinosis involving the intra-articular long head biceps tendon with superimposed low-grade linear interstitial tearing. 3. Minimal articular surface fraying in the supraspinatus and infraspinatus tendons. 4. Mild degenerative changes at the acromioclavicular joint. I ordered and independently reviewed and interpreted the imaging studies above; the results were discussed with the patient. Assessment: Diagnosis and Associated Orders ICD-10-CM 1. Right shoulder pain, suspected intraarticular pathology M25.511 Plan: I discussed with the patient, in detail, the different treatment options available to them including conservative management (rest, ice, oral pain medication, and activity modification), physical therapy, and the risks and benefits of cortisone injection. Today on examination, it is felt most of his symptoms are coming from an intraarticular pathology and I would like to try an intraarticular injection in-office. He will follow-up with me as needed and all questions answered. Procedure: Right Shoulder Glenohumeral Injection: Risks, alternatives, and benefits to a intraarticular injection were discussed in detail. The patient wishes to proceed with this. Using aseptic technique and Betadine prep, patient underwent a rightcortisone injection using 5mL of 1% plain Lidocaine and 40mg of triamcinolone in the glenohumeral joint using a 22- gauge needle posteriorly. The patient internally and externally rotated the shoulderminimally prior to dispensing the medication to ensure I was intraarticular. They noted mild relief. Scribe Disclosure: I, Hannah Hudson, am serving as a scribe to document services personally performed by Chandan Sotelo PA-C at this visit, based upon the provider's statements to me. All documentation has been reviewed by the aforementioned provider prior to being entered into the official medical record. Portions of this medical record were completed by a scribe. UPON MY REVIEW AND AUTHENTICATION BY ELECTRONIC SIGNATURE, this confirms (a) I performed the applicable clinical services, and (b) the record is accurate. Chandan Sotelo PA-C VERY AND MAIL SORTER documented in this encounter Plan of Treatment Upcoming Encounters Date Type Department Care Team (Late st Contact Info) Description 10/13/2023 8:30 AM CDT Appointment [facility] [address] [facility] [place] [address] Ana Padilla MD [address] [facility] [place] [id number] documented as of this encounter Visit Diagnoses Diagnosis Right shoulder pain, unspecified chronicity- Primary documented in this encounter Care Teams Street Flusher Driver Relationship Specialty Start Date End Date Jairo Brock MD [address] [place] [address] PCP - General 07/16/1996 documented as of this encounter
--- OUTSIDE RECORDS SUMMARY | 2023-09-18 14:29 | XMS_ITS | Encounter Summary ---
Author Name Unknown Organization [facility] Address [address] [place] [address] Care Team Providers Care Nuclear Worker Technician Name Role Phone Jairo Brock MD Primary Care Provider + [phone] Reason for Visit * Procedure/Equipment (Routine) - Incomplete Specialty Diagnoses / Procedures Referred By Uriah t Referred To Contact Diagnoses Right shoulder pain, unspecified chronicity Procedures XR Shoulder Rt 2+ Views Chandan Sotelo, PA-C [address] [facility] [place] [address] Referral ID Status Reason Start Date Expiration Date V isits Requested Visits Authorized [id number] Incomplete 07/03/2023 10/01/2024 1 1 Encounter Details Date Type Department Care Team (Late st Contact Info) Description 07/03/2023 10:00 AM PROGRAM CONTROL ANALYST Ancillary Procedure [facility] [address] [facility] [place] [address] Chandan Sotelo, PA-C [address] [facility] [address] [place] [id number] Right shoulder pain, unspecified chronicity Social History Tobacco Use Types Packs/Day Years [...] on file documented as of this encounter Plan of Treatment Upcoming Encounters Date Type Department Care Team (Late st Contact Info) Description 10/13/2023 8:30 AM CDT Appointment [facility] [address] [place] [address] Ana Padilla MD [address] [facility] [place] [address] documented as of this encounter Procedures Procedure Name Priority Date/Time Associated Diagnosis Comments XR SHOULDER RT 2+ VIEWS Routine 07/03/2023 10:04 AM PROGRAM CONTROL ANALYST Right shoulder pain, unspecified chronicity documented in this encounter Results * XR Shoulder Rt 2+ Views (07/03/2023 10:04 AM PROGRAM CONTROL ANALYST) Anatomical Region Laterality Modality Upper Extremity, Shoulder Digita l Radiography 07/03/2023 10:0 4 AM PROGRAM CONTROL ANALYST Impressions 07/03/2023 10:16 AM PROGRAM CONTROL ANALYST COMPARISON: ??03/08/2009 FINDINGS: ??Mild glenohumeral and ocoi-sp-yidqccct acromioclavicular degenerative changes. No fracture, dislocation, or other abnormality identified. Narrative Procedure Note Francisco Mc MD - 07/03/2023 IMPRESSION COMPARISON: 03/08/2009 FINDINGS: Mild glenohumeral and rrrl-ja-mfcjcsjg acromioclaviculardegenerative changes. No fracture, dislocation, or other abnormalityidentified. Chandan ZAIDI GD documented in this encounter Visit Diagnoses Diagnosis Right shoulder pain, unspecified chronicity documented in this encounter Care Teams Nuclear Worker Technician Relationship Specialty Start Date End Date Jairo Brock MD [address] [place] [address] PCP - General 07/16/1996 documented as of this encounter
--- OUTSIDE RECORDS SUMMARY | 2023-09-18 14:29 | XMS_ITS | Encounter Summary ---
Author Name Unknown Organization [facility] Address [address] [place] [address] Care Team Providers Care Cook Syrup Maker Name Role Phone Jairo Brock MD Primary Care Provider + [phone] Reason for Referral * Therapies (Routine) - New Request Specialty Diagnoses / Procedures Referred By Contac t Referred To Contact Diagnoses Right shoulder pain, unspecified chronicity [facility] [address] [place] [address] Referral ID Status Reason Start Date Expiration Date V isits Requested Visits Authorized [id number] New Request 07/22/2023 10/20/2024 1 1 Scheduling Instructions If scheduling assistance is needed, please inquire with the medical office staff upon exiting your appointment or contact the ordering clinic for recommended locations. This recommended service/s may not be covered by your insurance coverage. To find out your specific benefit coverage, please call the number on your insurance card. Question Answer Therapy Physical Therapy PT: Follow Up Every week How many times per week? 1 For how many weeks? 4 PT: Type of Revisit In-Person Visit Location: [facility] PT: Treatment Team Team Waitlist? High (Urgent) UNTS ADMINISTRATOR Reason for Visit * Reason Comments Shoulder Problem * Therapies (Routine) - New Request Specialty Diagnoses / Procedures Referred By Contac t Referred To Contact Diagnoses Right shoulder pain, unspecified chronicity Chandan Sotelo, ERYNC [address] [facility] [place] [address] Referral ID Status Reason Start Date Expiration Date V isits Requested Visits Authorized [id number] New Request 07/03/2023 07/02/2024 999 [id number] Encounter Details Date Type Department Care Team (Late st Contact Info) Description 07/22/2023 1:45 PM ACCOUNTS ADMINISTRATOR Therapy [facility] [address] [address] [place] [address] [place] [address] Right shoulder pain, unspecified chronicity (Primary Dx) [...] on file documented as of this encounter Progress Notes * John Villanueva, PT - 07/22/2023 1:45 PM CST [facility] Physical Therapy - Shoulder Evaluation/Plan of Care Initial Certification Period: to 10/20/23 Referring Provider: Chandan Sotelo Visit Diagnosis: 1. Right shoulder pain, unspecified chronicity Precautions: None reported Orders: Evaluate & treat Onset/Referral Date: 07/03/23 (order date) work restrictions of no overhead lifting, no push, pull or lift greater than 25 pounds until 08/17/2023. SUBJECTIVE Reason for Visit: R shoulder pain that has been ongoing for about the past year. In June of this year at work pt picked up a ladder, felt a pop in his shoulder which caused pain and weakness. Experienced loss of ROM on that side, Was seen by Ortho on 07/03/23. Had MRI of the R shoulder - see below for findings. Pt had injection on 07/03/23 and reports this did not change his symptoms. Pt reports he would like to have surgery and get done with it. Is very limited at work currently due to his condition. Patient Therapy Goals: Resume previous level of activity symptom free. Past Medical History: Past medical history, medication, and allergies were reviewed in the electronic medical record. History pertinent to therapy includes There is no problem list on file for this patient. . Patient has a current medication list which includes the following prescription(s): unknown medication and unknown medication. Patient has no past medical history on file. R shoulder MRI 07/03/23: IMPRESSION: 1. Irregularity of the superior labrum. It is uncertain if this represents an acute labral tear versus sequela of prior surgery. 2. Moderate tendinosis involving the intra-articular long head biceps tendon with superimposed low-grade linear interstitial tearing. 3. Minimal articular surface fraying in the supraspinatus and infraspinatus tendons. 4. Mild degenerative changes at the acromioclavicular joint. 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 Patient History: Low Complexity: No personal factors or comorbidities that impact plan of care OBJECTIVE Observation: forward head and rounded shoulders Screening: Cervical: Within normal limits AROM: Right Left AROM AROM Flexion 110 (pain) 150 ABD 90 (pain) 180 ER @ side 45 60 IR behind back TL junction Inferior angle of scapula PROM: Right PROM Flexion 110, pain Extension NT ABD 90, pain ER @ side 45, pain ER @ 90 deg ABD NT IR @ 90 NT Strength: Right Left Shoulder Flexion 4/5 5/5 ABD 4/5 5/5 ER 4/5 5/5 IR 4/5 5/5 Elbow Flexion 5/5 5/5 Extension 5/5 5/5 Neurological: intact Flexibility: Not tested Joint mobility: GH: Pain reproduction Palpation: Tenderness with palpation to: Right: posterior cuff Special Tests: Cr Ben for impingement: Positive Painful Arc Sign for impingement: Positive ER Strength for impingement: Positive Neers Test for impingement: Positive Functional tests: Hands behind head restricted/painful. Hands behind back restricted/painful. Hands on opposite shoulders restricted/painful. PT - Musculoskeletal - Shoulder QuickDASH (0-100, 0 being best): 47.73 Clinical Examination: Low complexity: Addressed 1-2 elements from body structures and functions (see above), and/or functional limitations as noted below. Today's Intervention: Physical Therapy Evaluation was completed and the patient was educated on the condition, planned therapy intervention and expectations from treatment. Therapeutic exercise x 10 minutes: Pt was educated, instructed, and practiced in: - Seated Scapular Retraction - 2-3 x daily - 7 x weekly - 2 sets - 10 reps - Standing Shoulder Abduction AAROM with Dowel - 2-3 x daily - 7 x weekly - 2 sets - 10 reps - Standing Shoulder External Rotation AAROM with Dowel - 2-3 x daily - 7 x weekly - 2 sets - 10 reps - Scaption Wall Slide with Towel - 2-3 x daily - 7 x weekly - 2 sets - 10 reps - Standing Isometric Shoulder Internal Rotation at Doorway - 2-3 x daily - 7 x weekly - 2 sets - 10reps - 2-3 sec hold - Standing Isometric Shoulder External Rotation with Doorway - 2-3 x daily - 7 x weekly - 2 sets - 10 reps - 2-3 sec hold - Standing Isometric Shoulder Abduction with Doorway - Arm Bent - 2-3 x daily - 7 x weekly - 2 sets- 10 reps - 2-3 sec hold - Standing Isometric Shoulder Flexion with Doorway - Arm Bent - 2-3 x daily - 7 x weekly - 2 sets -10 reps - 2-3 sec hold Therapeutic Activity x 10 min: Education and discussion regarding strategies and techniques assist with symptom management, improve functional performance at home/work, and time spent building therapeutic alliance. Timed Code Treatment Minutes: 20 Total Treatment Minutes: 35 Pt was educated in the following HEP: Access Code: [email or web address] URL: [email or web address] Date: 07/22/2023 Prepared by: John Villanueva Exercises - Seated Scapular Retraction - 2-3 x daily - 7 x weekly - 2 sets - 10 reps - Standing Shoulder Abduction AAROM with Dowel - 2-3 x daily - 7 x weekly - 2 sets - 10 reps - Standing Shoulder External Rotation AAROM with Dowel - 2-3 x daily - 7 x weekly - 2 sets - 10 reps - Scaption Wall Slide with Towel - 2-3 x daily - 7 x weekly - 2 sets - 10 reps - Standing Isometric Shoulder Internal Rotation at Doorway - 2-3 x daily - 7 x weekly - 2 sets - 10reps - 2-3 sec hold - Standing Isometric Shoulder External Rotation with Doorway - 2-3 x daily - 7 x weekly - 2 sets - 10 reps - 2-3 sec hold - Standing Isometric Shoulder Abduction with Doorway - Arm Bent - 2-3 x daily - 7 x weekly - 2 sets- 10 reps - 2-3 sec hold - Standing Isometric Shoulder Flexion with Doorway - Arm Bent - 2-3 x daily - 7 x weekly - 2 sets -10 reps - 2-3 sec hold ASSESSMENT Therapist Impression/Summary: Pt presents to PT with S/S that appear to be consistent with SAPS with possible cuff vs labral involvement, see objective section for full details. At this time pt displays impairments listed below. This is interfering with pt ability to perform ADL/IADLs, difficulty sleeping, decreased functional use of R UE, and difficulty performing work related duties. Pt was very irritable with AROM and PROM today. Instructed pt in performing AAROM and isometrics to tolerance.Pt would benefit from continued physical therapy in order to address deficits and progress towards listed goals. PT Clinical Presentation: Low Complexity: Stable and Uncomplicated Clinical Decision Making: Low Complexity Recommendations/Equipment: No additional recommendations at this time Significant Impairments: Pain, Muscular imbalances, ROM Limitation, Hyperalgesia Functional Limitations: poor body mechanics, difficulty sleeping, difficulty dressing, difficulty meeting work demands, and difficulty with driving Goals/Functional Outcomes: HEP/Independent Management: Demonstrate independence with HEP and self- management following each treatment session ADL's: Perform home management tasks with ease in 2-4 weeks. Lie or sleep on R side without waking during the night in 2-4 weeks. Reach overhead to cabinets with ease in 4-8 weeks. Driving: Use affected upper extremity for driving and minimal symptoms in 4-8 weeks. 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 Barriers to Goal Achievement or Learning: none Prognosis: good PLAN Planned Intervention/Education: ADL/Self Management, Dry Needling, Education, Electrical Stimulation, Gait training, Heat/ice, Manual Therapy, Neuromuscular Re-education, TENS application/self treatment, Therapeutic Activities, Therapeutic Exercise, Ultrasound, Vasopneumatic compression Frequency: 1 x week, 2 x week Duration: 90 days Discharge Plan: Patient will be discharged from therapy when goals are achieved or patient plateausin progress. Informed Consent: Patient and/or family in agreement with the care plan. Plan for Next Treatment: assess response to treatment, progress pain-free ROM, progress cuff/periscapular strengthening as pt tolerance allows The dye line operator is completed by the therapist and the referring clinician's electronic signature certifies medical necessity for the plan above. UNTS ADMINISTRATOR documented in this encounter Plan of Treatment Upcoming Encounters Date Type Department Care Team (Late st Contact Info) Description 10/13/2023 8:30 AM CDT Appointment [facility] [place] [address] [place] [address] Ana Padilla MD [address] [place] [address] Scheduled Referrals Name Type Priority Associated Diagnoses Orde r Schedule Rehab Therapies Follow Up Referral Routine Right shoulder pain, unspecified chronicity Ordered: 07/22/2023 documented as of this encounter Visit Diagnoses Diagnosis Right shoulder pain, unspecified chronicity- Primary documented in this encounter Care Teams Cook Syrup Maker Relationship Specialty Start Date End Date Jairo Brock MD [address] [place] [address] PCP - General 07/16/1996 documented as of this encounter
--- OUTSIDE RECORDS SUMMARY | 2023-09-18 14:29 | XMS_ITS | Clinical Summary ---
Author Name Unknown Organization [facility] Address [address] [place] [address] Care Team Providers Care Concrete Inspector Name Role Phone Jairo Brock MD Primary Care Provider + [phone] Source Comments You are receiving this document as you are listed as the primary care provider,follow-up provider, or the patient has been referred to you for consultation.This is in compliance with the Medicare and[facility] EHR Incentive Program,which states Providers who transition their patient to another setting of careor provider of care or refers their patient to another provider of care shouldprovide summary care record for each transition of care or referral. [facility] Allergies No known active allergies Medications Medication Sig Dispensed Refills Start Date End Date Status unknown medication Indications: PN: 04/05/2009 Active unknown medication Indications: PN: 04/05/2009 Active Active Problems No known active problems Encounters Date Type Department Care Team Description 09/11/2023 1:45 PM RADIO RIGGER Ancillary Procedure [facility] [address] [place] [address] Ana Padilla MD Right shoulder pain, unspecified chronicity 09/01/2023 7:30 AM RADIO RIGGER Office Visit [address] [address] Ana Padilla MD Right shoulder pain, unspecified chronicity (Primary Dx) 08/05/2023 8:50 AM RADIO RIGGER Office Visit [address] [address] Chandan Sotelo, DARRYL Right shoulder pain, unspecified chronicity (Primary Dx) 07/22/2023 1:45 PM RADIO RIGGER Therapy [facility] [address] [address] John Villanueva, PT Right shoulder pain, unspecified chronicity (Primary Dx) 07/10/2023 11:00 AM RADIO RIGGER Office Visit [facility] [address] [address] Chandan Sotelo PA-C Right rotator cuff tendinitis (Primary Dx) 07/09/2023 Telephone [facility] [address] [address] Chandan Sotelo PA-C QUESTIONS, GENERAL 07/06/2023 12:20 PM RADIO RIGGER Ancillary Procedure [facility] [address] [place] [address] Chandan Sotelo PA-C Right shoulder pain, unspecified chronicity 07/03/2023 10:20 AM RADIO RIGGER Office Visit [address] [address] Chandan Sotelo PA-C Right shoulder pain, unspecified chronicity (Primary Dx); Right rotator cuff tendinitis 07/03/2023 10:00 AM RADIO RIGGER Ancillary Procedure [facility] [address] [place] [address] Chandan Sotelo PA-C Right shoulder pain, unspecified chronicity from Last 3 Months Family History Medical History Relation Name Comments Cancer, Lung Father mesothioloma Relation Name Status Comments Father Social History Tobacco Use Types Packs/Day Years Used Date Smoking Tobacco: Some Days Cigarettes Smokeless Tobacco: Never Comments:Smoking History Pac ks/day: Alcohol Use Standard Drinks/Week Comments Yes 0 (1 standard drink = 0.6 oz pur e alcohol) 30 beers/week Sex and Gender Information Value Date Recorded Sex Assigned at Not on file Gender Identity Not on file Sexual Orientation Not on file Last Filed Vital Signs Vital Sign Reading Time Taken Comments Blood Pressure 138/82 07/15/2011 10:40 AM RADIO RIGGER Pulse 72 07/15/2011 10:40 AM RADIO RIGGER Temperature 36.6 ??C (97.9 ??F) 07/15/2011 10:[address] Respiratory Rate - - Oxygen Saturation - - Inhaled Oxygen Concentration - - Weight 74.8 kg (165 lb) 08/05/2023 8:49 AM RADIO RIGGER Height 172.7 cm (5' 8) 08/05/2023 8:49 AM RADIO RIGGER Body Mass Index 25.09 08/05/2023 8:49 AM RADIO RIGGER Plan of Treatment Upcoming Encounters Date Type Department Care Team (Late st Contact Info) Description 10/13/2023 8:30 AM CDT Appointment [facility] [address] [facility] [place] [id number] Ana Padilla MD [address] [facility] [place] [id number] Health Maintenance Due Date Last Done Comments Colon Cancer Screening Plan Due 1976 Diabetes Screening- (based o n age and BMI) 1976 Hep C Screening (Preventive Services) 1976 Pneumococcal (1 - PCV) 1982 HIV Screening (Preventive Services) 1992 HepB (1) 1995 Adult Preventive Visit 06/18/1995 06/18/1994 Cholesterol 2011 COVID-19 Vaccine ( - 2022-2 4 season) 2023 Influenza (#1) 2023 Zoster/Shingles (1 of 2) 2026 DTaP/Tdap/Td (2 - Tdap) 2027 2017 HepA Aged Out No longer eligi ble based on patient's age to complete this topic Hib Aged Out No longer eligi ble based on patient's age to complete this topic IPV (Polio) Aged Out No longer eligi ble based on patient's age to complete this topic MCV4 Aged Out No longer eligi ble based on patient's age to complete this topic Procedures Procedure Name Priority Date/Time Associated Diagnosis Comments US INJECTION RT TENDON OR LIGAMENT Routine 09/11/2023 2:05 PM RADIO RIGGER Right shoulder pain, unspecified chronicity MR SHOULDER RT WO IV CONT Routine 07/06/2023 12:19 PM RADIO RIGGER Right shoulder pain, unspecified chronicity XR SHOULDER RT 2+ VIEWS Routine 07/03/2023 10:04 AM RADIO RIGGER Right shoulder pain, unspecified chronicity from Last 3 Months Results * US Injection Rt Tendon or Ligament (09/11/2023 2:05 PM RADIO RIGGER) Anatomical Region Laterality Modality Ultrasound 09/11/2023 1:45 PM RADIO RIGGER Impressions 09/11/2023 2:13 PM RADIO RIGGER PROCEDURE: The risks, benefits, and alternatives were discussed and the patient granted informed written and verbal consent. ??A final pause was performed to verify site of injection and patient identification. ??1% lidocaine was utilized for local anesthesia. ??Using sterile technique and ultrasound guidance a 25-gauge needle was advanced into the right shoulder biceps tendon sheath. ??Needle tip position within the right shoulder biceps tendon sheath was confirmed with ultrasound and permanent images were stored in PACS. Approximately 2 mL Lidocaine and 1 mL Kenalog (40 mg/mL) administered into the right shoulder biceps tendon sheath without complication. ?? Narrative Procedure Note Rafael Tomlinson MD - 09/11/2023 IMPRESSION PROCEDURE: The risks, benefits, and alternatives were discussed and thepatient granted informed written and verbal consent. A final pause wasperformed to verify site of injection and patient identification. 1%lidocaine was utilized for local anesthesia. Using sterile technique andultrasound guidance a 25-gauge needle was advanced into the right shoulderbiceps tendon sheath. Needle tip position within the right shoulderbiceps tendon sheath was confirmed with ultrasound and permanent imageswere stored in PACS. Approximately 2 mL Lidocaine and 1 mL Kenalog (40mg/mL) administered into the right shoulder biceps tendon sheath withoutcomplication. Ana Padilla MD [facility] US * MR Shoulder Rt WO IV Cont (07/06/2023 12:19 PM RADIO RIGGER) Anatomical Region Laterality Modality Shoulder, Skeletal, Arm, Upper Extremity, Other, MSK Right Magnetic Resonance 07/06/2023 11:4 5 AM RADIO RIGGER Impressions 07/06/2023 12:44 PM RADIO RIGGER TECHNIQUE: ??Routine MRI of the right shoulder was performed without contrast. COMPARISON: ??07/03/2023 FINDINGS: ?? CORACOACROMIAL ARCH/AC JOINT: ??Mild degenerative changes at the acromioclavicular joint. Type I acromion with minimal lateral downsloping. There is no significant thickening of the coracoacromial or coracohumeral ligaments. There is no significant narrowing of the subacromial outlet or coracohumeral distance. ROTATOR CUFF: ??Minimal articular surface fraying involving the supraspinatus and infraspinatus tendons. No significant rotator cuff tear. There is no atrophy of the rotator cuff muscles. SUBACROMIAL/SUBDELTOID BURSA: ??Normal. GLENOHUMERAL JOINT: ??There is no significant degenerative arthritis or focal cartilage defect. There is no significant joint effusion. No osteocartilaginous bodies are identified. LONG HEAD OF THE BICEPS TENDON/GLENOID LABRUM: ??Moderate tendinosis involving the intra-articular long head of the biceps tendon. Additionally there is a prominent linear band of high T2 signal within the biceps tendon suspicious for a superimposed interstitial tear. Evidence of postsurgical changes at the superior aspect of the glenoid. Defect in the superior labrum on series 7 image 15. Slightly blunted appearance of the posterior labrum. MARROW AND SOFT TISSUES: ??There is no abnormal signal. There is no soft tissue mass. IMPRESSION: 1. Irregularity of the superior labrum. It is uncertain if this represents an acute labral tear versus sequela of prior surgery. 2. Moderate tendinosis involving the intra-articular long head biceps tendon with superimposed low-grade linear interstitial tearing. 3. Minimal articular surface fraying in the supraspinatus and infraspinatus tendons. 4. Mild degenerative changes at the acromioclavicular joint. Narrative Procedure Note Louis Merida MD - 07/06/2023 IMPRESSION TECHNIQUE: Routine MRI of the right shoulder was performed withoutcontrast. COMPARISON: 07/03/2023 FINDINGS: CORACOACROMIAL ARCH/AC JOINT: Mild degenerative changes at theacromioclavicular joint. Type I acromion with minimal lateral downsloping.There is no significant thickening of the coracoacromial or coracohumeralligaments. There is no significant narrowing of the subacromial outlet orcoracohumeral distance. ROTATOR CUFF: Minimal articular surface fraying involving thesupraspinatus and infraspinatus tendons. No significant rotator cuff tear.There is no atrophy of the rotator cuff muscles. SUBACROMIAL/SUBDELTOID BURSA: Normal. GLENOHUMERAL JOINT: There is no significant degenerative arthritis orfocal cartilage defect. There is no significant joint effusion. Noosteocartilaginous bodies are identified. LONG HEAD OF THE BICEPS TENDON/GLENOID LABRUM: Moderate tendinosisinvolving the intra-articular long head of the biceps tendon. Additionallythere is a prominent linear band of high T2 signal within the bicepstendon suspicious for a superimposed interstitial tear. Evidence ofpostsurgical changes at the superior aspect of the glenoid. Defect in thesuperior labrum on series 7 image 15. Slightly blunted appearance of theposterior labrum. MARROW AND SOFT TISSUES: There is no abnormal signal. There is no softtissue mass. IMPRESSION: 1. Irregularity of the superior labrum. It is uncertain if this representsan acute labral tear versus sequela of prior surgery. 2. Moderate tendinosis involving the intra-articular long head bicepstendon with superimposed low-grade linear interstitial tearing. 3. Minimal articular surface fraying in the supraspinatus andinfraspinatus tendons. 4. Mild degenerative changes at the acromioclavicular joint. Chandan Sotelo PA-C RAD MRI * XR Shoulder Rt 2+ Views (07/03/2023 10:04 AM RADIO RIGGER) Anatomical Region Laterality Modality Upper Extremity, Shoulder Digita l Radiography 07/03/2023 10:0 4 AM RADIO RIGGER Impressions 07/03/2023 10:16 AM RADIO RIGGER COMPARISON: ??03/08/2009 FINDINGS: ??Mild glenohumeral and [id number] acromioclavicular degenerative changes. No fracture, dislocation, or other abnormality identified. Narrative Procedure Note Francisco Mc MD - 07/03/2023 IMPRESSION COMPARISON: 03/08/2009 FINDINGS: Mild glenohumeral and bnre-am-[id number] acromioclaviculardegenerative changes. No fracture, dislocation, or other abnormalityidentified. Chandan SWANSON from Last 3 Months Care Teams Concrete Inspector Relationship Specialty Start Date End Date Jairo Brock MD [address] [place] [address] PCP - General 07/16/1996
--- OUTSIDE RECORDS SUMMARY | 2023-09-18 14:29 | XMS_ITS | Encounter Summary ---
Author Name Unknown Organization [facility] Address [address] [place] [address] Care Team Providers Care Hockey Scout Name Role Phone Jairo Brock MD Primary Care Provider + [phone] Reason for Visit * Procedure/Equipment (Routine) - Incomplete Specialty Diagnoses / Procedures Referred By Uriah t Referred To Contact Diagnoses Right shoulder pain, unspecified chronicity Procedures US Injection Rt Tendon or Ligament Ana Padilla MD [address] [facility] [place] [address] Referral ID Status Reason Start Date Expiration Date V isits Requested Visits Authorized [id number] Incomplete 09/01/2023 11/30/2024 1 1 Encounter Details Date Type Department Care Team (Late st Contact Info) Description 09/11/2023 1:45 PM SPANISH INSTRUCTOR Ancillary Procedure [facility] [address] [facility], [place] [address] Ana Padilla MD [address] [facility] [address] [place] [phone] Right shoulder pain, unspecified chronicity Social History [...] Info) Description 10/13/2023 8:30 AM CDT Appointment [facility] [address] [place] [address] Ana Padilla MD [address] [facility] [place] [address] documented as of this encounter Procedures Procedure Name Priority Date/Time Associated Diagnosis Comments US INJECTION RT TENDON OR LIGAMENT Routine 09/11/2023 2:05 PM SPANISH INSTRUCTOR Right shoulder pain, unspecified chronicity documented in this encounter Results * US Injection Rt Tendon or Ligament (09/11/2023 2:05 PM SPANISH INSTRUCTOR) Anatomical Region Laterality Modality Ultrasound 09/11/2023 1:45 PM SPANISH INSTRUCTOR Impressions 09/11/2023 2:13 PM SPANISH INSTRUCTOR PROCEDURE: The risks, benefits, and alternatives were [...] biceps tendon sheath withoutcomplication. Ana Padilla MD [facility] documented in this encounter Visit Diagnoses Diagnosis Right shoulder pain, unspecified chronicity documented in this encounter Administered Medications Inactive Administered Medications - up to 3 most recent administrations Medication Order MAR Action Action Date Dose Rate Site triamcinolone acetonide (KENALOG-40) 40 MG/ML injection 40 mg 40 mg, Intracapsular, ONCE, On Thu09/11/23 at 1430, For 1 dose Given 09/11/2023 2:04 PM SPANISH INSTRUCTOR 40 mg documented in this encounter Care Teams Hockey Scout Relationship Specialty Start Date End Date Jairo Brock MD [address], [place] [address] PCP - General 07/16/1996 documented as of this encounter
--- OUTSIDE RECORDS SUMMARY | 2023-09-18 14:29 | XMS_ITS | Encounter Summary ---
Author Name Unknown Organization [facility] Address [address] [place] [address] Care Team Providers Care Senior Statistician Name Role Phone Jairo Brock MD Primary Care Provider + [phone] Reason for Visit * Reason Comments QUESTIONS, GENERAL Encounter Details Date Type Department Care Team (Late st Contact Info) Description 07/09/2023 Telephone [facility] [address] [place], [place] [address] Chandan Sotelo PA-C [address] [place], [place] [phone] QUESTIONS, GENERAL Social History Tobacco Use Types Packs/Day Years [...] on file documented as of this encounter Nursing Notes * Elle Mason - 07/09/2023 3:25 PM CST RESULTS What test/results are you calling about: MR Shoulder Rt WO IV Cont Where was the test done: [facility] When did you have it done: 07/06/2023 [Clinical Cap Jewel Plate Assembler/Valve Setter:] Verified no action plan listed in last office visit for reviewing results: Completed. Pt states Chandan Sotelo said he would call pt with the results. If a prescription is needed, what pharmacy would you like that sent to? [Clinical Cap Jewel Plate Assembler/Valve Setter: Was the pharmacy entered into the Preferred Pharmacy Field] No If we are unable to reach you can we leave a detailed message on your voicemail? No, pt states his voicemail box, is full but pt says he will answer the call. If we are unable to reach you can we send you a message in [employer]? No, [facility] is not active. [Show Host Or Hostess/Valve Setter: Relay to patient; We make every effort to get back to you sameday, however it may take 1-2 business days depending on the nature of the communication.] ERCIAL SPECIALIST documented in this encounter Plan of Treatment Upcoming Encounters Date Type Department Care Team (Late st Contact Info) Description 10/13/2023 8:30 AM CDT Appointment [facility] [place] [address] [place] [address] Ana Padilla MD [address] [place] [address] documented as of this encounter Visit Diagnoses Not on filedocumented in this encounter Care Teams Senior Statistician Relationship Specialty Start Date End Date Jairo Brock MD [address], [place] [address] PCP - General 07/16/1996 documented as of this encounter
--- OUTSIDE RECORDS SUMMARY | 2023-09-18 14:29 | XMS_ITS | Encounter Summary ---
Author Name Unknown Organization [facility] Address [address] [place] [address] Care Team Providers Care Demurrage Man Name Role Phone Jairo Brock MD Primary Care Provider + [phone] Reason for Referral * Procedure/Equipment (Routine) - Incomplete Specialty Diagnoses / Procedures Referred By Uriah t Referred To Contact Diagnoses Right shoulder pain, unspecified chronicity Procedures US Injection Rt Tendon or Ligament Ana Padilla MD [address] [place] [address] [place] [id number] Referral ID Status Reason Start Date Expiration Date V isits Requested Visits Authorized [id number] Incomplete 09/01/2023 11/30/2024 1 1 WORKER Reason for Visit * Reason Comments SHOULDER PAIN Encounter Details Date Type Department Care Team (Late st Contact Info) Description 09/01/2023 7:30 AM KILN WORKER Office Visit [facility] [address] [facility] [place] [address] Ana Padilla MD [address] [place] [address] [place] [id number] Right shoulder pain, unspecified chronicity (Primary Dx) [...] as of this encounter Progress Notes * Ana Padilla MD - 09/01/2023 7:30 AM CST CHIEF CONCERN: Right shoulder pain HISTORY OF PRESENT ILLNESS: Kp Hansen is a 48 year old RHD male presenting for further evaluation of right shoulder pain that started about 1 year ago with acute progression in 06/2023 when he was picking up a ladder. The pain has been located in the anterior shoulder, progressively worsening since 06/2023. He has tried an injection into the GH and subacromial joint with minimal relief. The SA injection was done 07/03/2023 with 50% improvement for a few days, GH injection 08/05/2023 50% improved for 2-3 days. He has tried PT with minimal relief. No associated numbness or tingling. He has a history of right arthroscopic labral repair in 2008 with full post operative recovery prior to this most recent onset of pain. History reviewed. No pertinent past medical history. Current Outpatient Medications Medication Sig Dispense Refill unknown medication Indications: PN: unknown medication Indications: PN: No current facility-administered medications for this visit. 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 Lots of hauling gear up to tops of roofs, etc. 10 yo daughter. [employer] fan. Social Determinants of Health Financial Resource Strain: Not on file Food Insecurity: Not on file Transportation Needs: Not on file Intimate Partner Violence: Not on file Housing Stability: Not on file FAMILY HISTORY: Reviewed in EMR REVIEW OF SYSTEMS: Positive for that noted in past medical history and history of present illness and otherwise reviewed in EMR PHYSICAL EXAM: Adult male in no acute distress. Articulates and communicates with normal affect. Respirations even and unlabored Focused upper extremity exam: Skin intact. No erythema. Sensation intact all dermatomes into the hand to light touch. EPL, FPL, and Intrinsics intact. Right shoulder active motion is FE to 160 (170 L), ER at side to 45 (60 L), and IR to T12 bilaterally. + Neer and Cr. - pain on palpation over the AC joint. + pain on palpation over the long head of the biceps. + Speed's and Yergason's. IMAGING: Right shoulder Xrays from 07/03/2023 were reviewed and I agree with the Rads Impression below: FINDINGS: Mild glenohumeral and lzge-ih-kyresobu acromioclavicular degenerative changes. No fracture, dislocation, or other abnormality identified. Right shoulder MRI dated 07/03/2023 was reviewed and I agree with the Rads Impression below: IMPRESSION: 1. Irregularity of the superior labrum. It is uncertain if this represents an acute labral tear versus sequela of prior surgery. 2. Moderate tendinosis involving the intra-articular long head biceps tendon with superimposed low-grade linear interstitial tearing. 3. Minimal articular surface fraying in the supraspinatus and infraspinatus tendons. 4. Mild degenerative changes at the acromioclavicular joint. ASSESSMENT: 48M with right biceps tendinosis We had a long discussion with the patient and his on his history, symptoms, exam and imaging. He does have evidence of biceps irritation on exam which is consistent with his imaging. We discussed a diagnostic/therapeutic injection into the biceps sheath to see how much relief he is able to obtain. If this calms down the inflammation, this may be his ultimate treatment. If the injection does help but wears off, we discussed moving forward with a biceps tenotomy vs tenodesis, the risks and benefits of both were discussed in depth. Plan to move forward with injection and follow up in 4 weeks. PLAN: - image guided biceps sheath injection The patient was seen and plan was discussed with Orthopedic Staff Surgeon, Dr. Randy Felton PGY5 Orthopedic Surgery I have personally examined this patient and have reviewed the clinical presentation and progress note with the resident. I agree with the treatment plan as outlined. The plan was formulated with the resident on the day of the resident's note. WORKER documented in this encounter Plan of Treatment Upcoming Encounters Date Type Department Care Team (Late st Contact Info) Description 10/13/2023 8:30 AM CDT Appointment [facility] [address] [place], [place] [address] Ana Padilla MD [address] [facility] [place] [address] documented as of this encounter Results * US Injection Rt Tendon or Ligament (09/11/2023 2:05 PM KILN WORKER) Anatomical Region Laterality Modality Ultrasound 09/11/2023 1:45 PM KILN WORKER Impressions 09/11/2023 2:13 PM KILN WORKER PROCEDURE: The risks, benefits, and alternatives were [...] biceps tendon sheath withoutcomplication. Ana Padilla MD [facility] documented in this encounter Visit Diagnoses Diagnosis Right shoulder pain, unspecified chronicity- Primary Right shoulder pain, unspecified chronicity documented in this encounter Care Teams Demurrage Man Relationship Specialty Start Date End Date Jairo Brock MD [address] [place] [address] PCP - General 07/16/1996 documented as of this encounter
--- OUTSIDE RECORDS SUMMARY | 2023-09-18 14:29 | XMS_ITS | Encounter Summary ---
Author Name Unknown Organization [facility] Address [address] [place] [address] Care Team Providers Care Home Health Aide Caregiver Name Role Phone Jairo Brock MD Primary Care Provider + [phone] Reason for Referral * (Routine) - New Request Specialty Diagnoses / Procedures Referred By Uriah t Referred To Contact Diagnoses Right rotator cuff tendinitis Procedures Triamcinolone Acet Inj Nos: (per 10 mg) Chandan Sotelo PA-C [address] [address] Referral ID Status Reason Start Date Expiration Date V isits Requested Visits Authorized [id number] New Request 07/25/2023 10/23/2024 1 1 METALS ENGRAVER HAND Reason for Visit * Reason Comments SHOULDER PAIN Encounter Details Date Type Department Care Team (Late st Contact Info) Description 07/10/2023 11:00 AM HARD METALS ENGRAVER HAND Office Visit [facility] [address] [place] [address] Chandan Sotelo PA-C [address] [facility] [place] [address] Right rotator cuff tendinitis (Primary Dx) Social History Tobacco Use Types [...] on file documented as of this encounter Patient Instructions * Patient Instructions* Karen Moran MA - 07/10/2023 11:00 AM HARD METALS ENGRAVER HAND Thank you for Choosing [facility] for your health care visit today. Chandan Sotelo PA-C Sports Medicine and General Orthopedics Medication Requests: Prescriptions are not filled on weekends or on weekdays after 3:00 PM. For all medication refills: Request a refill using [employer] or contact your pharmacy. What is Know Your Cost? Know Your Cost is a service for patients and patient/members to call and receive personalized cost information and estimates across our care group. The phone number is (COST) Thursday - Thursday 8 AM to 5 PM Advanced Imaging Scheduling: To schedule an MRI, Ultrasound, or Image guided injection at [facility] please call [phone]. To schedule an MRI or CT at a [facility] please call [phone]. [facility] Workers' Compensation [address] [place] [address] (Phone) Email: [email or web address] Release of Information: Radiology/Imaging [address] [place] [address] (Phone) Health Information Management [address] [place] [address] (Phone) XD Nutrition METALS ENGRAVER HAND documented in this encounter Progress Notes * Chandan Sotelo PA-C - 07/10/2023 11:00 AM CST Kp Hansen [id number] 1975 [facility] Follow-Up 07/10/2023 Chief Complaint: Right Shoulder Pain History of Present Illness: Kp Hansen is a 48 y.o. male who presents for follow-up regarding right shoulder pain. Please refer to my note dated 07/03/23 for past medical history. Review of Systems: Positive for right shoulder pain. No history of other heart, lung, liver, GI, or renal diseases, cancers, diabetes mellitus, or arthritis. Physical Exam: Deferred. Imaging: MRI of the right shoulder - WO IV Cont (07/06/23): IMPRESSION TECHNIQUE: Routine MRI of the right shoulder was performed without contrast. COMPARISON: 07/03/2023 FINDINGS: CORACOACROMIAL ARCH/AC JOINT: Mild degenerative changes at the acromioclavicular joint. Type I acromion with minimal lateral downsloping. There is no significant thickening of the coracoacromial or coracohumeral ligaments. There is no significant narrowing of the subacromial outlet or coracohumeraldistance. ROTATOR CUFF: Minimal articular surface fraying involving the supraspinatus and infraspinatus tendons. No significant rotator cuff tear. There is no atrophy of the rotator cuff muscles. SUBACROMIAL/SUBDELTOID BURSA: Normal. GLENOHUMERAL JOINT: There is no significant degenerative arthritis or focal cartilage defect. Thereis no significant joint effusion. No osteocartilaginous bodies are identified. LONG HEAD OF THE BICEPS TENDON/GLENOID LABRUM: Moderate tendinosis involving the intra-articular long head of the biceps tendon. Additionally there is a prominent linear band of high T2 signal withinthe biceps tendon suspicious for a superimposed interstitial tear. Evidence of postsurgical changesat the superior aspect of the glenoid. Defect in the superior labrum on series 7 image 15. Slightlyblunted appearance of the posterior labrum. MARROW AND SOFT TISSUES: There is [...] Diagnosis and Associated Orders ICD-10-CM 1. Right rotator cuff tendinitis M75.81 Plan: I discussed with the patient, in detail, the different treatment options available to them including conservative management (rest, ice, oral pain medication, and activity modification), physical therapy, and the risks and benefits of cortisone injection. At this time, the patient elects to proceedwith subacromial corticosteroid injection and physical therapy; he will follow-up in 6 weeks if symptoms are not improves. All questions were answered. Procedure: Risks, alternatives, and benefits to a subacromial injection were discussed in detail. The patient wishes to proceed with this. Using aseptic technique and Betadine prep, patient underwent a right cortisone injection using 9 mL of 1% plain Lidocaine and 40 mg of Kenalog in the subacromial space using a 22 gauge needle posteriorly. There were no complications noted during or after the procedure. They noted immediate relief. Rotator cuff strength was improved post injection. Patient will follow up with me in about 6 to 8 weeks' time for reexamination. Physical therapy was recommended and the patient was referred for a Rotator cuff strengthening program. If they have any problems or complicatio ns, return to clinic sooner. Scribe Disclosure: I, Carrie Medeiros, am serving as a scribe to document [...] the record is accurate. Chandan Sotelo PA-C METALS ENGRAVER HAND documented in this encounter Plan of Treatment Upcoming Encounters Date Type Department Care Team (Late st Contact Info) Description 10/13/2023 8:30 AM CDT Appointment [facility] [address] [place] [id number] Ana Padilla MD [address] [place] [address] [place] [address] documented as of this encounter Visit Diagnoses Diagnosis Right rotator cuff tendinitis- Primary documented in this encounter Care Teams Home Health Aide Caregiver Relationship Specialty Start Date End Date Jairo Brock MD [address] [place] [address] PCP - General 07/16/1996 documented as of this encounter
--- OUTSIDE RECORDS SUMMARY | 2023-09-18 14:29 | XMS_ITS | Encounter Summary ---
Author Name Unknown Organization [facility] Address [address] [place] [address] Care Team Providers Care Insurance Inspector Name Role Phone Jairo Brock MD Primary Care Provider + [phone] Reason for Referral * Therapies (Routine) - New Request Specialty Diagnoses / Procedures Referred By Uriah triana Referred To Contact Diagnoses Right shoulder pain, unspecified chronicity Chandan Sotelo PA-C [address] [facility] [place] [address] Referral ID Status Reason Start Date Expiration Date V isits Requested Visits Authorized [id number] New Request 07/03/2023 07/02/[phone] Scheduling Instructions Your clinician recommended an appointment with Physical Therapy and Rehabilitation Services. You can quickly make your appointment online at [employer]/schedule. You can also call [phone] for help scheduling your appointment. We suggest you call your health insurance company about your coverage and benefits for this appointment. Question Answer Appointment Urgency? Non-Urgent Requested Services Evaluate and treat May use saline for irrigation or cleansing Yes RFV/Clin Data Rotator cuff tendinitis of the right dexamethasone use Yes May check glucose per protocol (see policy link below) or if patient has symptoms? Yes IENT MANAGEMENT SPECIALIST * Procedure/Equipment (Routine) - Incomplete Specialty Diagnoses / Procedures Referred By Uriah triana Referred To Contact Diagnoses Right shoulder pain, unspecified chronicity Procedures MR Shoulder Rt WO IV Chandan Leija PA-C [address] [facility] [place] [address] Referral ID Status Reason Start Date Expiration Date V isits Requested Visits Authorized [id number] Incomplete 07/03/2023 10/01/2024 1 1 IENT MANAGEMENT SPECIALIST * Procedure/Equipment (Routine) - Incomplete Specialty Diagnoses / Procedures Referred By Contagnes t Referred To Contact Diagnoses Right shoulder pain, unspecified chronicity Procedures XR Shoulder Rt 2+ Views Chandan Sotelo PA-C [address] [facility] [place] [address] Referral ID Status Reason Start Date Expiration Date V isits Requested Visits Authorized [id number] Incomplete 07/03/2023 10/01/2024 1 1 IENT MANAGEMENT SPECIALIST Reason for Visit * Reason Comments SHOULDER PAIN Encounter Details Date Type Department Care Team (Late st Contact Info) Description 07/03/2023 10:20 AM NUTRIENT MANAGEMENT SPECIALIST Office Visit [facility] [address] [place] [address] Chandan Sotelo PA-C [address] [facility] [place] [address] Right shoulder pain, unspecified chronicity (Primary Dx); Right rotator cuff tendinitis Social History Tobacco Use Types Packs/Day Years [...] - - Weight 74.8 kg (165 lb) 07/03/2023 9:58 AM NUTRIENT MANAGEMENT SPECIALIST Height 172.7 cm (5' 8) 07/03/2023 9:58 AM NUTRIENT MANAGEMENT SPECIALIST Body Mass Index 25.09 07/03/2023 9:58 AM NUTRIENT MANAGEMENT SPECIALIST documented in this encounter Patient Instructions * Patient Instructions* Karen Moran MA - 07/03/2023 10:20 AM NUTRIENT MANAGEMENT SPECIALIST Thank you for Choosing [facility] for your health care visit today. Chandan Sotelo PA-C Sports Medicine and General Orthopedics Medication Requests: Prescriptions are not filled on weekends or on weekdays after 3:00 PM. For all medication refills: Request a refill using [employer] or contact your pharmacy. What is Know Your Cost? Know Your Cost is a service for patients and patient/members to call and receive personalized cost information and estimates across our care group. The phone number is (COST) Thursday - Thursday 8 AM to 5 PM Advanced Imaging Scheduling: To schedule an MRI, Ultrasound, or Image guided injection at [facility] please call [phone]. To schedule an MRI or CT at a [facility] location please call [phone]. [facility] Workers' Compensation [address] [place] [address] (Phone) Email: [email or web address] Release of Information: Radiology/Imaging [address] [place] [address] (Phone) Health Information Management [address] [place] [address] (Phone) [employer] IENT MANAGEMENT SPECIALIST documented in this encounter Progress Notes * Chandan Sotelo PA-C - 07/03/2023 10:20 AM CST Kp Hansen [id number] 1975 [facility] Consultation 07/03/2023 Chief Complaint: Right shoulder pain. History of Present Illness: Kp Hansen is a 48 y.o. male who presents for evaluation of right shoulder pain that has been present for the past year. He notes that about 2 weeks ago, he was picking up a ladder at work and felt a pop in the right shoulder. He had instant pain and weakness. Since then, he has noticed loss ofROM on the right shoulder. He does feel weakness on the right side. Denies neck stiffness, pain, numbness or tingling. He is unable to do overhead movements. He has been compensating with the left arm. He states that his symptoms were not necessarily work-related, he has had symptoms off and on forthe last year or two and mos recently exacerbated about a month ago. Allergies: Patient has no known allergies. Current Medications: The patient has a current medication list which includes the following prescription(s): unknown medication and unknown medication. Past Medical History: The patient has no past medical history on file. Past Surgical History: The patient has no past surgical history on file. Family History: The patient's family history includes Cancer, Lung in his father. 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 He has one daughter. Cigarette smoker. Consumes about 30 beers per week, denies illicit drug use. The General Medical History Form dated 07/03/2023 was updated and reviewed with the patient; this islocated in [facility] in [facility]. Review of Systems: Positive for right shoulder pain. No history of other heart, lung, liver, GI, or renal diseases, cancers, diabetes mellitus, or arthritis. Physical Exam: General: The patient is in no acute distress. Neuro: Answers questions appropriately. Alert and oriented x 3. Skin: Skin is cool to touch without erythema, ecchymosis, or lesions. Right Shoulder: Limited ROM on the right shoulder. Guarded. 3/5 strength. Empty can test does reproduce symptoms as well as weakness. 2+ pulses. No signs of infection. Spurling's test was negative. Imaging: Radiographs of the Shoulder Rt - 2+ Views (07/03/23): Mild glenohumeral and shmn-vs-rxlxcvud acromioclavicular degenerative changes. No fracture, dislocation, or other abnormality identified. I ordered and independently reviewed and interpreted the imaging studies above; the results were discussed with the patient. Assessment: Diagnosis and Associated Orders ICD-10-CM 1. Right shoulder pain, unspecified chronicity M25.511 XR Shoulder Rt 2+ Views MR Shoulder Rt WO IV Cont Physical Therapy 2. Right rotator cuff tendinitis versus right rotator cuff tear M75.81 Plan: I discussed with the patient, in detail, the different treatment options available to them including conservative management (rest, ice, oral pain medication, and activity modification), physical therapy, and the risks and benefits of cortisone injection . He has had chronic symptoms and most recently, it was exacerbated. I would like to further evaluate this with a MRI to r/o rotator cuff pathology. He will follow-up with me after the MRI. He was also referred to PT and given work restrictionsof no overhead lifting, no push, pull or lift greater than 25 pounds until 08/17/2023. The patient was satisfied with this and all questions answered. Scribe Disclosure: Scribed for Chandan Sotelo PA-C by Caprice Chaney Scribe. I, Chandan Sotelo PA-C, have personally reviewed and agree with the information provided by the scribe. Chandan Sotelo PA-C IENT MANAGEMENT SPECIALIST documented in this encounter Plan of Treatment Upcoming Encounters Date Type Department Care Team (Late st Contact Info) Description 10/13/2023 8:30 AM CDT Appointment [facility] [address] [place] [id number] Ana Padilla MD [address] [facility] [place] [address] Scheduled Referrals Name Type Priority Associated Diagnoses Orde r Schedule Physical Therapy Referral Routine Right shoulder pain, unspecified chronicity Ordered: 07/03/2023 documented as of this encounter Results * MR Shoulder Rt WO IV Cont (07/06/2023 12:19 PM NUTRIENT MANAGEMENT SPECIALIST) Anatomical Region Laterality Modality Shoulder, Skeletal, Arm, Upper Extremity, Other, MSK Right Magnetic Resonance 07/06/2023 11:4 5 AM NUTRIENT MANAGEMENT SPECIALIST Impressions 07/06/2023 12:44 PM NUTRIENT MANAGEMENT SPECIALIST TECHNIQUE: ??Routine MRI of the right shoulder [...] Shoulder Rt 2+ Views (07/03/2023 10:04 AM NUTRIENT MANAGEMENT SPECIALIST) Anatomical Region Laterality Modality Upper Extremity, Shoulder Digita l Radiography 07/03/2023 10:0 4 AM NUTRIENT MANAGEMENT SPECIALIST Impressions 07/03/2023 10:16 AM NUTRIENT MANAGEMENT SPECIALIST COMPARISON: ??03/08/2009 FINDINGS: ??Mild glenohumeral and jsfp-dc-vhnythrb acromioclavicular degenerative changes. No fracture, dislocation, or other abnormality identified. Narrative Procedure Note Francisco Mc MD - 07/03/2023 IMPRESSION COMPARISON: 03/08/2009 FINDINGS: Mild glenohumeral and vufr-zo-qkkvrhky acromioclaviculardegenerative changes. No fracture, dislocation, or other abnormalityidentified. Chandan ZAIDI GD documented in this encounter Visit Diagnoses Diagnosis Right shoulder pain, unspecified chronicity- Primary Right rotator cuff tendinitis Right shoulder pain, unspecified chronicity Right shoulder pain, unspecified chronicity documented in this encounter Care Teams Insurance Inspector Relationship Specialty Start Date End Date Jairo Brock MD [address] [place] [address] PCP - General 07/16/1996 documented as of this encounter
--- OUTSIDE RECORDS SUMMARY | 2023-09-18 14:29 | XMS_ITS | Encounter Summary ---
Author Name Unknown Organization [facility] Address [address] [place] [address] Care Team Providers Care Community Organization Worker Name Role Phone Jairo Brock MD Primary Care Provider + [phone] Reason for Visit * Procedure/Equipment (Routine) - Incomplete Specialty Diagnoses / Procedures Referred By Uriah t Referred To Contact Diagnoses Right shoulder pain, unspecified chronicity Procedures MR Shoulder Rt WO IV Cont Chandan Sotelo, PA-C [address] [facility] [place] [place] [address] Referral ID Status Reason Start Date Expiration Date V isits Requested Visits Authorized [id number] Incomplete 07/03/2023 10/01/2024 1 1 Encounter Details Date Type Department Care Team (Late st Contact Info) Description 07/06/2023 12:20 PM ORE FEEDER Ancillary Procedure [facility] [address] [place], [place] [address] Chandan Sotelo, PA-C [address] [facility] [address] [place] [id number] Right shoulder pain, unspecified chronicity Social History [...] Info) Description 10/13/2023 8:30 AM CDT Appointment [facility] [address] [facility] [place] [address] Ana Padilla MD [address] [facility] [place] [address] documented as of this encounter Procedures Procedure Name Priority Date/Time Associated Diagnosis Comments MR SHOULDER RT WO IV CONT Routine 07/06/2023 12:19 PM ORE FEEDER Right shoulder pain, unspecified chronicity documented in this encounter Results * MR Shoulder Rt WO IV Cont (07/06/2023 12:19 PM ORE FEEDER) Anatomical Region Laterality Modality Shoulder, Skeletal, Arm, Upper Extremity, Other, MSK Right Magnetic Resonance 07/06/2023 11:4 5 AM ORE FEEDER Impressions 07/06/2023 12:44 PM ORE FEEDER TECHNIQUE: ??Routine MRI of the right shoulder [...] acromioclavicular joint. Chandan Sotelo PA-C RAD MRI documented in this encounter Visit Diagnoses Diagnosis Right shoulder pain, unspecified chronicity documented in this encounter Care Teams Community Organization Worker Relationship Specialty Start Date End Date Jairo Brock MD [address], [place] [address] PCP - General 07/16/1996 documented as of this encounter
--- OUTSIDE RECORDS SUMMARY | 2023-09-18 14:30 | XMS_ITS | Clinical Summary ---
Author Name Unknown Organization [facility] Address [address] [address] Phone Care Team Providers Care Manager Long Term Care Name Role Phone Unavailable Primary Care Provider Unavailabl e Allergies No known active allergies Medications No known medications Active Problems Problem Noted Date Diagnosed Date Alcohol-induced acute pancreatitis 10/04/2019 Elevated lipase 10/04/2019 Surgical History Surgery Date Site/Laterality Comments SHOULDER Right APPENDECTOMY Medical History Medical History Date Comments Alcohol abuse Tobacco abuse Recurrent pancreatitis Social History Tobacco Use Types Packs/Day Years Used Date Smoking Tobacco: Every Day Cigarettes 1.5 30 Smokeless Tobacco: Never Tobacco Cessation:Counseling Given: Yes Comments:10/05/19 - 1 to 1.5 ppd Alcohol Use Standard Drinks/Week Comments Yes 15 (1 standard drink = 0.6 oz pu re alcohol) AUDIT-C Answer Date Recorded Frequency of Alcohol Consumption Not on file 10/04/2019 Average Number of Drinks Not on file 020 Q3: How often do you have si x or more drinks on one occasion? Daily or almost daily 10/04/2019 Sex and Gender Information Value Date Recorded Sex Assigned at Male 10/04/2019 4:44 PM ZIGZAGGER Gender Identity Male 10/04/2019 4:44 PM ZIGZAGGER Sexual Orientation Not on file Obstetrics History Last Filed Vital Signs Vital Sign Reading Time Taken Comments Blood Pressure 137/81 10/05/2019 10:59 AM ZIGZAGGER Pulse 123 10/05/2019 10:59 AM ZIGZAGGER Temperature 36.9 ??C (98.4 ??F) 10/05/2019 6:47 AM CS T Respiratory Rate 16 10/05/2019 7:40 AM ZIGZAGGER Oxygen Saturation 97% 10/05/2019 6:47 AM ZIGZAGGER Inhaled Oxygen Concentration - - Weight 79.4 kg (175 lb) 10/04/2019 4:46 PM ZIGZAGGER Height 172.7 cm (5' 8) 10/04/2019 4:46 PM ZIGZAGGER Body Mass Index 26.61 10/04/2019 4:46 PM ZIGZAGGER Plan of Treatment Not on file Advance Directives For more information, please contact: [phone] Latest Code Status on File Code Status Date Activated Date Inactivated Comments Full Code 10/04/2019 3:49 PM 10/05/2019 3:47 PM
--- NOTE | 2023-09-18 15:00 | US_ITS ---
Final Report Patient: SCOTT ACOSTA Facility:?[facility] Patient ID:?[id number] Site Patient ID:?[id number]. Site :?1975 Study:?US Testicle Bilateral -09/18/2023 3:00:11 PM Ordering Physician:?JHOANA MADDEN Final Report: INDICATION: DISORDER OF MALE GENITALS COMPARISON: none TECHNIQUE: Dixon scale imaging was performed of the scrotum. In addition color Doppler and spectral Doppler analysis was performed of the testes. FINDINGS: The testes demonstrate normal arterial and venous blood flow on color Doppler and spectral Doppler analysis. The testes have uniform echogenicity with no evidence of a suspicious mass or area of inflammation. The right testis measures 4.8 x 2.5 x 3.5 cm in size and the left testis measures 4.4 x 2.3 x 4.3 cm. The epididymis appears normal bilaterally. Large left hydrocele is present in the superior left hemiscrotum measuring 7.1 x 3.8 x 5.5 cm. A thin internal septation is noted along with a few scattered internal echoes. IMPRESSION: Normal ultrasound of the testicles. Large left hydrocele. Dictated by Adrian Tovar MD @ 09/18/2023 3:16:47 PM (Electronic Signature)
== END 2023-09-18 14:28 | disposition home or self-care (01) ==
LOC: US 14:27
PROVIDERS: PCP Physician Assistant Medical; Visit Provider Surgery
DX: N50.89 Other specified disorders of the male genital organs (principal); N43.3 Hydrocele, unspecified
CPT/HCPCS: 76870; 93976

== ENCOUNTER 2023-11-09 06:15 | Day surgery (SDC) | payer OTHER, SELFPAY ==
[2023-11-09] VITALS (12 sets, daily range): BP systolic 104–137; BP diastolic 65–100; PULSE 70–113; RESP 16; TEMP 36.8; O2SAT 95–98; BMI 25.4
--- OUTSIDE RECORDS SUMMARY | 2023-11-09 06:17 | XMS_ITS | Encounter Summary ---
Author Name Unknown Organization [facility] Address [address] [place] [address] Care Team Providers Care Interactive Project Manager Name Role Phone Jairo Brock MD Primary Care Provider + [phone] Reason for Visit * Reason Comments SHOULDER PAIN Encounter Details Date Type Department Care Team (Late st Contact Info) Description 10/13/2023 8:30 AM CDT Office Visit [facility] [address] [place] [id number] Ana Padilla MD [address] [place] [id number] Disorder of bursae and tendons in shoulder region (Primary Dx) Social History Tobacco Use Types [...] Progress Notes * Ana Padilla MD - 10/13/2023 8:30 AM CDT CHIEF CONCERN: Recent right biceps symptoms HISTORY OF PRESENT ILLNESS: Mr. Hansen is a 48 year old gentleman who returns today to review hisprogress with his right shoulder pain. He was referred for a US guided biceps sheath injection and he is very happy to report he had nearly 100% relief of pain. The injection is still working and he is able to do everything he wants/needs to do. PHYSICAL EXAM: Adult male in NAD Focused right UE exam: No obvious asymmetry. AROM is full without pain or restriction. Motor intactthroughout hand. IMAGING: None new ASSESSMENT: Right long head biceps disease, resolved with biceps sheath injection PLAN: We discussed that if his injection lasts at least 3 months, he could repeat it (preferably not morethan q4 months). We discussed the risk of biceps rupture either with age related/activity related degeneration and could be hastened by injections. We discussed that if a rupture occurs we generally do not operate for this. We reviewed that if his injections became ineffective, surgical tenotomy ortenodesis is an option. He will follow up prn and call if he would like to repeat the injection in the future as above. Ana Padilla MD documented in this encounter Plan of Treatment Not on file documented as of this encounter Visit Diagnoses Diagnosis Disorder of bursae and tendons in shoulder region- Primary Disorders of bursae and tendons in shoulder region, unspecified documented in this encounter Care Teams Interactive Project Manager Relationship Specialty Start Date End Date Jairo Brock MD [address] [place] [address] PCP - General 07/16/1996 documented as of this encounter
--- OUTSIDE RECORDS SUMMARY | 2023-11-09 06:17 | XMS_ITS | Encounter Summary ---
Author Name Unknown Organization [facility] Address [address] [place] [address] Care Team Providers Care Roustabout Crew Name Role Phone Jairo Brock MD Primary Care Provider + [phone] Reason for Referral * Procedure/Equipment (Routine) - Incomplete Specialty Diagnoses / Procedures Referred By Uriah t Referred To Contact Diagnoses Right shoulder pain, unspecified chronicity Procedures US Injection Rt Tendon or Ligament Ana Padilla MD [address] [place] [address] CLAIRE Godfrey [id number] Referral ID Status Reason Start Date Expiration Date V isits Requested Visits Authorized [id number] Incomplete 09/01/2023 11/30/2024 1 1 ROOM/POOLHALL MANAGER Reason for Visit * Reason Comments SHOULDER PAIN Encounter Details Date Type Department Care Team (Late st Contact Info) Description 09/01/2023 7:30 AM POOLROOM/POOLHALL MANAGER Office Visit [facility] [address] [facility] [address] Ana Padilla MD [address] [place] [address] CLAIRE Godfrey [id number] Right shoulder pain, unspecified chronicity (Primary Dx) [...] of this encounter Progress Notes * Ana aPdilla MD - 09/01/2023 7:30 AM CST CHIEF [...] level: Not on file Occupational History 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 No fracture, dislocation, or [...] on the day of the resident's note. ROOM/POOLHALL MANAGER documented in this encounter Plan of Treatment Not on file documented as of this encounter Results * US Injection Rt Tendon or Ligament (09/11/2023 2:05 PM POOLROOM/POOLHALL MANAGER) Anatomical Region Laterality Modality Ultrasound 09/11/2023 1:45 PM POOLROOM/POOLHALL MANAGER Impressions 09/11/2023 2:13 PM POOLROOM/POOLHALL MANAGER PROCEDURE: The risks, benefits, and alternatives were [...] biceps tendon sheath withoutcomplication. Ana Padilla MD [facility] documented in this encounter Visit Diagnoses Diagnosis Right shoulder pain, unspecified chronicity- Primary Right shoulder pain, unspecified chronicity documented in this encounter Care Teams Roustabout Crew Relationship Specialty Start Date End Date Jairo Brock MD [address] [place] [address] PCP - General 07/16/1996 documented as of this encounter
--- OUTSIDE RECORDS SUMMARY | 2023-11-09 06:17 | XMS_ITS | Encounter Summary ---
Author Name Unknown Organization [facility] Address [address] [place] [address] Care Team Providers Care Home Sales Consultant Name Role Phone Jairo Brock MD Primary Care Provider + [phone] Reason for Visit * Procedure/Equipment (Routine) - Incomplete Specialty Diagnoses / Procedures Referred By Uriah t Referred To Contact Diagnoses Right shoulder pain, unspecified chronicity Procedures US Injection Rt Tendon or Ligament Ana Padilla MD [address] [place] [address] Referral ID Status Reason Start Date Expiration Date V isits Requested Visits Authorized [id number] Incomplete 09/01/2023 11/30/2024 1 1 Encounter Details Date Type Department Care Team (Late st Contact Info) Description 09/11/2023 1:45 PM FIELD SERVICE SUPERVISOR Ancillary Procedure [facility] [address] [facility] [place] [place] [address] Ana Padilla MD [address] [place] [id number] Right shoulder pain, unspecified chronicity Social History [...] as of this encounter Plan of Treatment Not on file documented as of this encounter Procedures Procedure Name Priority Date/Time Associated Diagnosis Comments US INJECTION RT TENDON OR LIGAMENT Routine 09/11/2023 2:05 PM FIELD SERVICE SUPERVISOR Right shoulder pain, unspecified chronicity documented in this encounter Results * US Injection Rt Tendon or Ligament (09/11/2023 2:05 PM FIELD SERVICE SUPERVISOR) Anatomical Region Laterality Modality Ultrasound 09/11/2023 1:45 PM FIELD SERVICE SUPERVISOR Impressions 09/11/2023 2:13 PM FIELD SERVICE SUPERVISOR PROCEDURE: The risks, benefits, and alternatives were [...] biceps tendon sheath withoutcomplication. Ana Padilla MD [facility] documented in this encounter Visit Diagnoses Diagnosis Right shoulder pain, unspecified chronicity documented in this encounter Administered Medications Inactive Administered Medications - up to 3 most recent administrations Medication Order MAR Action Action Date Dose Rate Site triamcinolone acetonide (KENALOG-40) 40 MG/ML injection 40 mg 40 mg, Intracapsular, ONCE, On Thu09/11/23 at 1430, For 1 dose Given 09/11/2023 2:04 PM FIELD SERVICE SUPERVISOR 40 mg documented in this encounter Care Teams Home Sales Consultant Relationship Specialty Start Date End Date Jairo Brock MD [address] [place] [address] PCP - General 07/16/1996 documented as of this encounter
--- OUTSIDE RECORDS SUMMARY | 2023-11-09 06:17 | XMS_ITS | Clinical Summary ---
Author Name Unknown Organization [facility] Address [address] [place] [address] Care Team Providers Care High School Vice Principal Name Role Phone Jairo Brock MD Primary Care Provider + [phone] Source Comments You are receiving this document as you are listed as the primary care provider,follow-up provider, or the patient has been referred to you for consultation.This is in compliance with the Medicare and[facility] EHR Incentive Program,which states Providers who transition [...] Encounters Date Type Department Care Team Description 10/13/2023 8:30 AM CDT Office Visit [address] [address] Ana Padilla MD Disorder of bursae and tendons in shoulder region (Primary Dx) 09/11/2023 1:45 PM RISK MANAGER Ancillary Procedure [facility] [address] [place] [address] Ana Padilla MD Right shoulder pain, unspecified chronicity 09/01/2023 7:30 AM RISK MANAGER Office Visit [address] [address] Ana Padilla MD Right shoulder pain, unspecified chronicity (Primary Dx) from Last 3 Months Family History Medical [...] Comments Blood Pressure 138/82 07/15/2011 10:40 AM RISK MANAGER Pulse 72 07/15/2011 10:40 AM RISK MANAGER Temperature 36.6 ??C (97.9 ??F) 07/15/2011 10:[address] Respiratory Rate - - Oxygen Saturation - - Inhaled Oxygen Concentration - - Weight 74.8 kg (165 lb) 08/05/2023 8:49 AM RISK MANAGER Height 172.7 cm (5' 8) 08/05/2023 8:49 AM RISK MANAGER Body Mass Index 25.09 08/05/2023 8:49 AM RISK MANAGER Plan of Treatment Health Maintenance Due Date Last Done Comments [...] TENDON OR LIGAMENT Routine 09/11/2023 2:05 PM RISK MANAGER Right shoulder pain, unspecified chronicity from Last 3 Months Results * US Injection Rt Tendon or Ligament (09/11/2023 2:05 PM RISK MANAGER) Anatomical Region Laterality Modality Ultrasound 09/11/2023 1:45 PM RISK MANAGER Impressions 09/11/2023 2:13 PM RISK MANAGER PROCEDURE: The risks, benefits, and alternatives [...] biceps tendon sheath withoutcomplication. Ana Padilla MD [facility] from Last 3 Months Care Teams High School Vice Principal Relationship Specialty Start Date End Date Jairo Brock MD [address] [place] [address] PCP - General 07/16/1996
--- OUTSIDE RECORDS SUMMARY | 2023-11-09 06:18 | XMS_ITS | Clinical Summary ---
Author Name Unknown Organization [employer] [facility] Address [address] [address] Phone Care Team Providers Care Foundry Equipment Mechanic Name Role Phone Unavailable Primary Care Provider [...] Sex Assigned at Male 10/04/2019 4:44 PM OVEN ROASTER Gender Identity Male 10/04/2019 4:44 PM OVEN ROASTER Sexual Orientation Not on file Obstetrics History Last Filed Vital Signs Vital Sign Reading Time Taken Comments Blood Pressure 137/81 10/05/2019 10:59 AM OVEN ROASTER Pulse 123 10/05/2019 10:59 AM OVEN ROASTER Temperature 36.9 ??C (98.4 ??F) 10/05/2019 6:47 AM CS T Respiratory Rate 16 10/05/2019 7:40 AM OVEN ROASTER Oxygen Saturation 97% 10/05/2019 6:47 AM OVEN ROASTER Inhaled Oxygen Concentration - - Weight 79.4 kg (175 lb) 10/04/2019 4:46 PM OVEN ROASTER Height 172.7 cm (5' 8) 10/04/2019 4:46 PM OVEN ROASTER Body Mass Index 26.61 10/04/2019 4:46 PM OVEN ROASTER Plan of Treatment Not on file Advance Directives For more information, please contact: [phone] Latest Code Status on File Code Status Date Activated Date Inactivated Comments Full Code 10/04/2019 3:49 PM 10/05/2019 3:47 PM
--- OUTSIDE RECORDS SUMMARY | 2023-11-09 06:18 | XMS_ITS | Encounter Summary ---
Author Name Unknown Organization [facility] Address [address] [place] [address] Care Team Providers Care Cras Name Role Phone Jairo Brock MD Primary Care Provider + [phone] Reason for Referral * (Routine) - New Request Specialty Diagnoses / Procedures Referred By Contagnes t Referred To Contact Diagnoses Right shoulder pain, unspecified chronicity Procedures Triamcinolone Acet Inj Nos: (per 10 mg) Chandan Sotelo PA-C [address] [address] Referral ID Status Reason Start Date Expiration Date V isits Requested Visits Authorized [id number] New Request 08/06/2023 11/04/2024 1 1 CE DISTRICT SWITCHBOARD OPERATOR Reason for Visit * Reason Comments SHOULDER PAIN Encounter Details Date Type Department Care Team (Late st Contact Info) Description 08/05/2023 8:50 AM POLICE DISTRICT SWITCHBOARD OPERATOR Office Visit [facility] [address] [place] [address] Chandan Sotelo PA-C [address] [place] [phone] Right shoulder pain, unspecified chronicity (Primary Dx) [...] 74.8 kg (165 lb) 08/05/2023 8:49 AM POLICE DISTRICT SWITCHBOARD OPERATOR Height 172.7 cm (5' 8) 08/05/2023 8:49 AM POLICE DISTRICT SWITCHBOARD OPERATOR Body Mass Index 25.09 08/05/2023 8:49 AM POLICE DISTRICT SWITCHBOARD OPERATOR documented in this encounter Patient Instructions * Patient Instructions* Karen Moran MA - 08/05/2023 8:50 AM POLICE DISTRICT SWITCHBOARD OPERATOR [facility]. Chandan Sotelo PA-C Sports Medicine and General Orthopedics Medication Requests: Prescriptions are not filled on weekends or on weekdays after 3:00 PM. For all medication refills: Request a refill using [employer] or contact your pharmacy. What is Know Your Cost? Know Your Cost is a service for patients and patient/members to call and receive personalized cost information and estimates across our care group. The phone number is (COST) Thursday - Thursday 8 AM to 5 PM Advanced Imaging Scheduling: To schedule an MRI, Ultrasound, or Image guided injection at [facility] please call [phone]. To schedule an MRI or CT at a [facility] location please call [phone]. [facility] Workers' Compensation [address] [place] [address] (Phone) Email: [email or web address] Release of Information: Radiology/Imaging [address] [place] [address] (Phone) Health Information Management [address] [place] [address] (Phone) [employer] CE DISTRICT SWITCHBOARD OPERATOR documented in this encounter Progress Notes * Chandan Sotelo PA-C - 08/05/2023 8:50 AM CST Kp Hansen [phone] [id number] [facility] Follow-Up 08/05/2023 Chief Complaint: Right shoulder pain. [...] the record is accurate. Chandan Sotelo PA-C CE DISTRICT SWITCHBOARD OPERATOR documented in this encounter Plan of Treatment Not on file documented as of this encounter Visit Diagnoses Diagnosis Right shoulder pain, unspecified chronicity- Primary documented in this encounter Care Teams Cras Relationship Specialty Start Date End Date Jairo Brock MD [address], [place] [address] PCP - General 07/16/1996 documented as of this encounter
--- OUTSIDE RECORDS SUMMARY | 2023-11-09 06:18 | XMS_ITS | Encounter Summary ---
Author Name Unknown Organization [facility] Address [address] [address] Care Team Providers Care Deaf Teacher Name Role Phone Jairo Brock MD Primary Care Provider + [phone] Reason for Referral * Therapies (Routine) - New Request Specialty Diagnoses / Procedures Referred By Contac t Referred To Contact Diagnoses Right shoulder pain, unspecified chronicity [facility] [address] [place] [address] Referral ID Status Reason Start Date Expiration Date V isits Requested Visits Authorized [id number] New Request 07/22/2023 10/20/2024 1 1 Scheduling [...] PT: Type of Revisit In-Person Visit Location: [facility] PT: Treatment Team Team Waitlist? High (Urgent) UNTING DIRECTOR Reason for Visit * Reason Comments Shoulder Problem * Therapies (Routine) - New Request Specialty Diagnoses / Procedures Referred By Contac t Referred To Contact Diagnoses Right shoulder pain, unspecified chronicity Chandan Sotelo, ERYNC [address] [facility] [place] [address] Referral ID Status Reason Start Date Expiration Date V isits Requested Visits Authorized [id number] New Request 07/03/2023 07/02/[phone] Encounter Details Date Type Department Care Team (Late st Contact Info) Description 07/22/2023 1:45 PM ACCOUNTING DIRECTOR Therapy [facility] [address] [address] [place] [address] [place] [address] Right shoulder pain, unspecified chronicity (Primary Dx) [...] Villanueva, PT - 07/22/2023 1:45 PM CST [facility] Physical Therapy - Shoulder Evaluation/Plan of [...] and Restriction of activity 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 Barriers to Goal [...] cuff/periscapular strengthening as pt tolerance allows The batch freezer is completed by the therapist and the referring clinician's electronic signature certifies medical necessity for the plan above. UNTING DIRECTOR * John Villanueva, PT - 07/22/2023 1:45 PM CST [facility] Physical Therapy Discharge Summary Kp Hansen has not attended therapy since last documented visit. There are no further visits scheduled at this time and Kp is currently considered discharged from therapy. Unable to assess current level of function and goals due to unplanned discharge. PT - Discharge Total Visits: 1 Reason for discharge: Patient has not been consistent with attendance and/or failed to schedule appointments as planned. Please see previous visit documentation of status at last treatment. John Villanueva PT UNTING DIRECTOR documented in this encounter Plan of Treatment Scheduled Referrals Name Type Priority Associated Diagnoses Orde r Schedule Rehab Therapies Follow Up Referral Routine Right shoulder pain, unspecified chronicity Ordered: 07/22/2023 documented as of this encounter Visit Diagnoses Diagnosis Right shoulder pain, unspecified chronicity- Primary documented in this encounter Care Teams Deaf Teacher Relationship Specialty Start Date End Date Jairo Brock MD [address], [place] [address] PCP - General 07/16/1996 documented as of this encounter
--- OUTSIDE RECORDS SUMMARY | 2023-11-09 06:18 | XMS_ITS | Continuity of Care Document ---
Author Name Unknown Organization [facility] Address [address] [address] [place] [address] Phone Care Team Providers Care Vibration Analyst Name Role Phone Benjamin Quijano MD Unavailable Unavailable Allergies, Adverse Reactions, Alerts Substance Reaction Status Criticality No Known Allergies Active No Inform ation Medications Medication Instructions Dosage Effective Dates (start - stop) Status Comments No Drug Therapy Prescribed Procedures Procedure Date Routine Serum Collection Offic/outpt E&m New Mod-hi Routine Serum Collection Offic/outpt E&m Estab Mod-hi 2 13 Subsqt Hosp-da E&m Minr Compl 3 Subsqt Hosp-da E&m Stable 15 M 13 Subsqt Hosp-da E&m Minr Compl 3 Subsqt Hosp-da E&m Minr Compl 3 Init Hosp-da E&m Mod Severity 3 Advance Directives Directive Yes / No Effective Date File Name No Information Encounters Encounter Description Practice Location Reason(s) For Visit Diagnoses Date Provider Providers Copied on Encounter [facility], [address] [address], [place], [place], [id number], [place] tel:[phone] [facility] No Information 4 Samm Alexander. [address], [facility] [address], [place], [place], [id number], [place]. tel:[phone] [facility]. tel:[phone] [facility], [address] [address], [facility] [place], [id number], [place] tel:[phone] [facility] Chronic calcific pancreatitis 4 Samm Alexander. [address], [address] [address], [place], [place], [id number], [place]. tel:[phone] Referring Provider: Referral Self, USE FOR SELF REFERRALS. Offic/outpt E&m New Mod-hi [facility], [address] [address], [place], [place], [id number], [place] tel:[phone] [facility] GI Symptoms or Concerns (chief complaint) Chronic calcific pancreatitisA lcohol induced acute pancreatitis without necrosis or infection 4 Samm Alexander. [address], [address], [id number], [place]. tel:[phone] [facility]. tel:[phone] ring Provider: Mary BROWN, [address], [place], [address]. tel:[phone] [facility], [address] [address], [place], [place], [id number], [place] tel:[phone] [facility] No Information 4 Yefri Shah. [address], [facility] [address], [place], [address], [place]. tel:[phone] Offic/outpt E&m [facility] Mod-hi 2 [facility], [address] [address], [place], [place], [address], [place] tel:[phone] [facility] Pancreatitis (chief complaint) Acute Pancreatitis 3 Kevin Pedraza. [address], [facility] [address], [place], [place], [address], [place]. tel:[phone] Referring Provider: Referral Self, USE FOR SELF REFERRALS. Subsqt Hosp-da E&m Minr Compl [facility], [address] [address], [place], [place], [address], [place] tel:[phone] [facility] No Information Sep-1 0 3 No Information Subsqt Hosp-da E&m Stable 15 M [facility], [address] [address], [place], [place], [address], [place] tel:[phone] [facility] No Information Sep-0 9 3 Dorian Moraes. [address], [facility] [address], [place], [id number], [place]. tel:[phone] Referring Provider: Preston Alarcon DO, [address] [place] [address], [address]. tel:[phone] Subsqt Hosp-da E&m Minr Compl [facility], [address] [address], [place], [place], [address], [place] tel:[phone] [facility] No Information Sep-0 3 Diane Bo. [address], [facility] [address], [place], [address], [place]. tel:[phone] Referring Provider: Betzy FONTENOT, [address] [place] [address], [address]. tel:[phone] Init Hosp-da E&m Mod Severity [facility], [address] [address], [place], [place], [address], [place] tel:[phone] [facility] No Information Sep-0 3 Kory Hdz. [address] [place] [address], [facility] [address], [place], [id number], [place]. tel:[phone] Referring Provider: Andreina Spencer, [address] [place] [address], [address]. tel:[phone] Family History Family Member Type Diagnosis Age [...] Problem (finding) malignant neoplasm of l laurie Immunizations Vaccine Date Status Comments tetanus toxoid, reduced diphtheria toxoid, and acellular pertussis vaccine, adsorbed administered Note: [facility] bi-direct ional interface ; Source: Other Registry Payers Payer name Insurance type Covered constitution party ID Mann trimble(s) [facility] [id number] Social History Type Description Quantity Date Captured Comments Alcohol Use Details Unknown Caffeine Use Details Unknown Tobacco Use Status Smoking Status No Information Sex Male Chief Complaint And Reason For Visit No Information Reason For Referral Reason For Referral No Information Plan Of Treatment Date Type Action Status Referral Ordered: Colonoscopy Appointment date/timeframe: 01/12/2024 ordered Referral Ordered: MRCP Biliary/Pancreatic Ducts WITHOUT And WITH Contrast Appointment date/timeframe: 01/12/2024 ordered Future Order: Lab Order Hemoglob in A1c, Whole Blood ([id number]), Collected on: , Sent on: Sent Future Order: Lab Order Vitamin D, 25-Hydroxy ([id number]), Collected on: , Sent on: Sent Future Order: Lab Order IgG, Sub classes(1-4) ([id number]), Appointment on: , Collected on: , Sent on: Sent Future Order: Lab Order Vitamin A And E ([id number]), Collected on: , Sent on: Sent History Of Present Illness Encounter Date Complaint History Of Prese nt Illness GI Symptoms or Concerns This is a 48-year-old male with a past medical history of Appendectomy about 8 years ago, smoking 1 pack per day for last 30+ years, history of chronic alcohol use, 10-12 bouts of acute pancreatitis in his lifetime who presents here for evaluation for chronic pancreatitis. He is being sent to us for consultation by provider STEPHANIE Sanchez. There is a question about potential autoimmune pancreatitis. from his pancreas history he had his 1st bout of acute pancreatitis about 1 decade ago. He has had about 10-12 episodes of acute pancreatitis since that time. About 1 a year. Patient notes that the 1st time he had an episode of acute pancreatitis he was in the hospital for 2 weeks with 1 week being in the ICU. He has never had any drainage procedures that he is aware of. Since that time he has had only hospitalizations the last 1-3 days. Most recent hospitalization was June of 2023 that showed liver hepatic steatosis, interstitial acute pancreatitis with calcifications in the head uncinate and tail of the pancreas. Gallbladder was there and reported as normal on cross-sectional imaging with CT. He did have lipase greater than 3 times the upper limit of normal of 1400 with upper limit of normal being 300. He recovered from that episode well. On the cross-sectional imaging there was a reading that has a potential consideration of autoimmune pancreatitis can be considered as there was a ring-like appearance around the pancreas. Since that time and in between these episodes he is completely symptom-free. Patient denies any abdominal pain, nausea, vomiting has 2 formed bowel movements a day type 3-4 on the [facility] stool chart. from a social standpoint patient smoke 1 pack per day for the last 30+ years. Patient's last consumption of alcohol was yesterday. When he started drinking he is about 16 years old and in his 20s there were several years where he was having at least 5 drinks a day daily for several years any so continues to have alcohol from time to time. from a family standpoint his sister also have bouts of acute pancreatitis she would also smokes and drinks significantly. Functional Status Date Functional Assessmen t No Information Medications Administered Medication Instructions Dosage Effective Dates (start - stop) Status Comments No Drug Therapy Prescribed Instructions Date Instruction Additional Infor mark -- as we discussed i n clinic you have had several bouts of acute pancreatitis and have now developed chronic pancreatitis with calcification seen on your pancreas-- there was a question about potential autoimmune pancreatitis and I can confidently say the chances of you having autoimmune pancreatitis are slim to none-- the most important thing that we can do is stop smoking and alcohol consumption completely. Both of these we will affect her pancreas and cause ongoing damage and will significantly increase your risk of pancreatic cancer as well as developing painful chronic pancreatitis-- please discuss with your primary provider about nicotine supplementation options to help with stopping to smoke as it will be very challenging-- continue with a multivitamin once a day-- we will obtain blood work today to ensure fat soluble vitamin levels of vitamin-A, E and D are at adequate levels-- we will look for diabetes with a hemoglobin A1c-- we will check IgG 4 that can be elevated in autoimmune pancreatitis-- we will obtain an MRI in about 3 months of the pancreas to rule out any occult lesion or features suggestive of autoimmune pancreatitis-- we will order a colonoscopy as you are due for colon cancer screening--We will follow up with results through the portal and [id number] in 6 months Related to Chronic calcific pancreatitis Assessments Type Assessment Date No Information Patient Care Teams Name Effective Dates (start - stop) Status Members No Information
--- OUTSIDE RECORDS SUMMARY | 2023-11-09 06:18 | XMS_ITS | Encounter Summary ---
Author Name Unknown Organization [facility] Address [address] [place] [address] Care Team Providers Care Grocery Carrier Name Role Phone Jairo Brock MD Primary Care Provider [phone] Reason for Visit * Reason Comments QUESTIONS, GENERAL Encounter Details Date Type Department Care Team (Late st Contact Info) Description 07/09/2023 Telephone [facility] [address] [place], [place] [phone] Chandan Sotelo PA-C [address] [place], [place] [phone] QUESTIONS, GENERAL Social History Tobacco Use Types [...] did you have it done: 07/06/2023 [Clinical Paint Spraying Machine Operator Helper/Transplant Nurse:] Verified no action plan listed in last office visit for reviewing results: Completed. Pt states Chandan Sotelo said he would call pt with the results. If a prescription is needed, what pharmacy would you like that sent to? [Clinical Paint Spraying Machine Operator Helper/Transplant Nurse: Was the pharmacy entered into the Preferred Pharmacy Field] No If we are unable to reach you can we leave a detailed message on your voicemail? No, pt states his voicemail box, is full but pt says he will answer the call. If we are unable to reach you can we send you a message in [email or web address]? No, [facility] is not active. [Layer Up/Transplant Nurse: Relay to patient; We make every effort to get back to you sameday, however it may take 1-2 business days depending on the nature of the communication.] IBILITY MANAGER documented in this encounter Plan of Treatment Not on file documented as of this encounter Visit Diagnoses Not on filedocumented in this encounter Care Teams Grocery Carrier Relationship Specialty Start Date End Date Jairo Brock MD [address], [place] [address] PCP - General 07/16/1996 documented as of this encounter
[2023-11-09] MEDS: LACTATED RINGERS 1000 ML 1,000 ML 100 ML IV (06:57)
[2023-11-09] MEDS: SODIUM CHLORIDE 0.9 % (FLUSH) 10 ML SYRINGE IVF (06:58)
[2023-11-09] MEDS: LACTATED RINGERS 1000 ML 1,000 ML 75 ML IV ×2 (08:00→09:00)
[2023-11-09] MEDS: CEFAZOLIN 2 GM INJ IVP (08:22)
--- NOTE | 2023-11-09 08:27 | SUR.PREOP ---
0800: pt states he shaved himself at home
[2023-11-09] MEDS: BUPIVACAINE 0.25% 30 ML INJECTION (09:00)
--- NOTE | 2023-11-09 09:27 | W.PM.H&PU_ITS ---
History & Physical Update History & Physical Update H&P Reviewed and patient assessed: The following changes are noted below H&P Updates: Since our clinic visit, Kp has seen GI who felt his pancreatitis was alcohol- induced and also had a scrotal ultrasound showing a left hydrocele. We discussed referral to urology for this as well as possible general surgery consult elsewhere so both could be addressed at once, however, he prefers to have his hernia fixed first. No other updates.
--- NOTE | 2023-11-09 09:29 | PM.GSPRC ---
Operative Note Date of procedure: 11/09/23 Pre-op diagnosis: Symptomatic left inguinal hernia Post-op diagnosis: Same Type of Procedure: Laparoscopic left inguinal hernia repair with mesh Indications: The patient is a 48-year-old male who developed a left groin bulge. This is interfering with his work as it is becoming larger and more painful. He also has a left-sided hydrocele which was diagnosed with ultrasound. After discussion of options, because he is asymptomatic from his hydrocele but very symptomatic from the hernia, he elected to proceed with hernia repair. Procedure Description: After discussing the risks and benefits of the procedure, the patient signed informed consent.? The operative site was marked and the patient was brought to the operating room and placed on the operating table in supine position.? Care was taken to pad the patient's pressure points.?? The patient was then intubated by anesthesia.?? The operative site was then prepped and draped in the usual sterile fashion.? A time-out was then performed. A curvilinear incision was made below the umbilicus. Dissection was carried down to subcutaneous tissue until the anterior rectus fascia was encountered. This was incised off the midline on the left. The rectus muscle fibers were then retracted exposing the posterior fascia. A port with a dissecting balloon was then introduced into the pre-preperitoneal space. This was inflated under direct vision. The balloon was deflated, removed, and a 10 mm working port was placed. The space was insufflated and a 10 mm 30-degree scope was then advanced into the space. Two 5 mm ports were placed in the midline under direct vision. Dissection began on the left side. Krishan's ligament and the pubic bone were exposed medially. Following this, dissection was carried out laterally. A direct defect was noted. This was reduced. The peritoneum was dissected free from the cord structures. There was no indirect hernia sac noted. There was no cord lipoma noted. Once the space was completely dissected, a piece of Bard 3DMax mesh for the appropriate side was placed into the abdomen. This was positioned with the marker pointed medially. A Tacker was used to attach the mesh medially at Krishan's ligament with over flap of midline and 1 tack laterally with care to avoid the epigastric vessels and stay above the inguinal ligament. An additional tack was placed superior medially to hold the mesh in place medially given the direct hernia. Once this was completed, the preperitoneal space desufflated under direct vision to ensure the mesh laid flat. 15 mL of 0.5% Marcaine were instilled into the preperitoneal space through a port. The ports were removed. The fascia from the infraumbilical port was closed with 0 Vicryl. The skin incisions were closed with absorbable subcuticular suture. Sterile dressings were then applied. The scrotum was examined to ensure that both testicles were down. Instrument sponge and needle counts were correct at the end of the case. ? The patient was then woken and transported to the recovery area in stable condition. ? The patient tolerated the procedure well. Findings: Direct left inguinal hernia. Left hydrocele. Implants: Left Bard 3DMax mesh Anesthesia: GETA Surgeon: Honey Yadav MD Estimated blood loss (mL): 5 Condition: stable Disposition: PACU
--- NOTE | 2023-11-09 09:35 | W.ANESCHARGE ---
Anesthesia Charges Start Date/Time Anesthesia Start Date: 11/09/23 Anesthesia Start Time: 08:10 Stop Date/Time Anesthesia Stop Date: 11/09/23 Anesthesia Stop Time: 09:24
[2023-11-09] MEDS: KETOROLAC 15 MG/ML inj IVP (09:41)
--- NOTE | 2023-11-09 10:15 | W.ANESCHARGE ---
Anesthesia Charges Start Date/Time Anesthesia Start Date: 11/09/23 Anesthesia Start Time: 08:10 Stop Date/Time Anesthesia Stop Date: 11/09/23 Anesthesia Stop Time: 09:24
[2023-11-09] MEDS: HYDROCODONE-ACETAMIN 5-325 MG 1 TAB PO (10:26)
--- NOTE | 2023-11-09 11:12 | SUR.PHASEII ---
pt tolerated sprite and crackers, denies nausea or dizziness. pt ambulated out to car with .
== END 2023-11-09 11:10 | disposition home or self-care (01) ==
PROVIDERS: PCP Physician Assistant Medical; Visit Provider Surgery
PROC: (CPT 49650; principal; 2023-11-09 07:30)
DX: K40.90 Unilateral inguinal hernia, without obstruction or gangrene, not specified as recurrent (principal); N43.2 Other hydrocele
CPT/HCPCS: 49650; 00830; 00840; 00860; A9270; C1781; J0330; J0665; J0690; J1100; J1170; J1885; J2250; J2405; J2704; J3010; J3490; J7120

== ENCOUNTER 2023-11-27 09:56 | Emergency (ER) | payer OTHER, SELFPAY ==
[2023-11-27 09:58] VITALS: BP 167/105; PULSE 86; RESP 18; TEMP 36.6; O2SAT 100; BMI 25.1
--- NOTE | 2023-11-27 10:30 | ED_ITS ---
HPI - Abdominal Pain General Chief Complaint: Abdominal Pain Stated Complaint: abdominal pain Time Seen by Provider: 11/27/23 10:22 History of Present Illness HPI narrative: This 48-year-old male comes in reporting upper epigastric abdominal pain radiating through to his back. He has a history of pancreatitis that is recurrent. He did have some alcohol recently. He does not report any fevers or other symptoms. His last food was yesterday which she did not tolerate well. Related Data Previous Rx's Medication Instructions Recorded hydrocodone 5 mg-acetaminophen 325 1 tab PO Q4-6H PRN pain #10 tabs 11/27/23 mg tablet Allergies Allergy/AdvReac Type Severity Reaction Status Date / Time No Known Allergies Allergy Unknown Verified 11/27/23 10:02 Review of Systems Status of ROS Reports: 10 or more systems reviewed and unremarkable except as noted in History and below Narrative Constitutional: No fevers, no weight gain or loss. Eyes: No discharge. No vision changes. HENT: No congestion, no sore throat, no ear pain. Cardiovascular: No chest pain, no palpitations. Respiratory: No shortness of breath, no wheezes, no cough. Gastrointestinal: No vomiting, no diarrhea. Abdominal pain as described above. Genitourinary: No dysuria, no hematuria. Musculoskeletal: Normal range of motion. Skin: No rashes, no pruritis. Neurological: No dizziness, weakness, sensory change, speech change. Endo/Heme/Allergies: No bruising or bleeding. No polydipsia. Pysch: no suicidality, no anxiety, no insomnia. All other systems reviewed and are negative. [facility] Medical History (Updated 11/27/23 @ 12:29 by Rashaun Ortega MD) Abdominal pain ?R10.9 - Unspecified abdominal pain (ICD-10) Psoriasis ?L40.9 - Psoriasis, unspecified (ICD-10) Cocaine use ?F14.90 - Cocaine use, unspecified, uncomplicated (ICD-10) Alcoholism ?F10.20 - Alcohol dependence, uncomplicated (ICD-10) Non-ulcer dyspepsia ?K30 - Functional dyspepsia (ICD-10) Surgical History (Updated 09/09/23 @ 10:43 by Honey Yadav MD) H/O shoulder surgery ?Z98.890 - Other specified postprocedural states (ICD-10) History of appendectomy ?Z90.49 - Acquired absence of other specified parts of digestive tract (ICD- 10) Family History (Updated 09/09/23 @ 10:44 by Honey Yadav MD) Father Lung cancer Social History Narrative: Smoker- 1 ppd What is your current living situation?: I presently have a place to live Problems where you live: no known problems Problems where you live details: NA In the past 12 months, utilities in danger of being shut off: no In past 12 months, lack of transportation kept you from medical appts, meetings, work, or getting things needed for daily living: no In the past 12 mos, have been you worried that your food would run out before you had money to buy more?: never true In the past 12 mos, the food you bought just didn't last and you didn't have money to buy more?: never true Smoking Status: Current every day smoker What tobacco products do you use: cigarettes Smoking packs per day: 1 Smoking cigarettes per day: 20.0 Do you use any of these nicotine containing products: None Second hand tobacco smoke exposure: No How often do you have a drink containing alcohol: 2-3 times a week How many standard drinks containing alcohol do you have on a typical day: 3 or 4 How often do you have six or more drinks on one occasion: Never AUDIT-C Alcohol total score: 4 Non-prescribed substance use: denies use Caffeine: Yes (1 cup/coffee) How often does anyone, including family, friends and others, physically hurt you : never How often does anyone, including family, friends and others, insult or talk down to you: never How often does anyone, including family, friends and others, threaten you with harm: never How often does anyone, including family, friends and others, scream or curse at you: never Little interest or pleasure in doing things: not at all Feeling down, depressed, or hopeless: not at all service: No Exam Narrative: Exam Narrative: Constitutional: Well-developed, well-nourished, no acute distress. HEENT: Normocephalic, atraumatic. Neck: Normal range of motion. Nontender. Supple. Heart: Regular. No murmurs. Normal rate. Intact distal pulses. Lungs: Clear to auscultation. No chest discomfort. No wheezes, rhonchi, or rales. Abdomen: Normal bowel sounds. Distinct tenderness in the upper epigastric region. Genitalia: Deferred. Back: No midline tenderness. Normal range of motion. Extremities: Normal range of motion. No injury. Skin: Intact. No rash. Warm. No erythema or pallor. Neurologic: No altered sensation. No weakness. Alert and oriented. Psychiatric: No suicidality. No anxiety or depression. No insomnia. Nursing notes and vitals signs are reviewed. Const: Vital Signs, click to edit/add: Vital Signs - 24 hr 11/27/23 09:58 Temperature 97.9 F Pulse Rate [Pulse Oximeter] 86 Respiratory Rate 18 Blood Pressure [Ri ght Upper Arm] 167/105 H Pulse Oximetry 100 Oxygen Delivery Me thod Room Air Course Vital Signs Vital signs: Initial Vital Signs Temperature 97.9 F 11/27/23 09:58 Temperature Source Temporal Artery Scan 11/27/23 09:58 Pulse Rate 86 11/27/23 09:58 Respiratory Rate 18 11/27/23 09:58 Blood Pressure 167/105 H 11/27/23 09:58 Blood Pressure Mean 125 H 11/27/23 09:58 Blood Pressure Position Sitting 11/27/23 09:58 Pulse Oximetry 100 11/27/23 09:58 Oxygen Delivery Method Room Air 11/27/23 09:58 Vital Signs Temperature 97.9 F 11/27/23 09:58 Pulse Rate 86 11/27/23 09:58 Respiratory Rate 18 11/27/23 09:58 Blood Pressure 167/105 H 11/27/23 09:58 Pulse Oximetry 100 11/27/23 09:58 Oxygen Delivery Method Room Air 11/27/23 09:58 Temperature 97.9 F 11/27/23 09:58 Pulse Rate 86 11/27/23 09:58 Respiratory Rate 18 11/27/23 09:58 Blood Pressure 167/105 H 11/27/23 09:58 Pulse Oximetry 100 11/27/23 09:58 Oxygen Delivery Method Room Air 11/27/23 09:58 Medications Administered Medications: Discontinued Medications Generic Name Dose Route Start Last Admin Trade Name Freq PRN Reason Stop Dose Admin Hydromorphone HCl 0.5 mg 11/27/23 10:29 11/27/23 11:25 Hydromorphone 0.5 Mg/0.5 Ml Inj IVP 11/27/23 10:30 0.5 mg ONCE ONE Administration Sodium Chloride 1,000 mls @ 1,000 mls/hr 11/27/23 10:30 11/27/23 11:25 0.9 % Sodium Chloride 1000 Ml IV 11/27/23 11:29 1,000 mls/hr .Q1H SUBHASH Administration Ondansetron HCl 4 mg 11/27/23 11:17 11/27/23 11:25 Ondansetron 2 Mg/Ml Inj IVP 11/27/23 11:18 4 mg ONCE ONE Administration MDM - Abdominal Pain MDM Narrative Medical decision making narrative: This patient has history of pancreatitis related to alcohol and comes in with similar symptoms after taking some alcohol recently. An IV was established and labs are acquired. He did receive a L of normal saline and Dilaudid 0.5 mg intravenously. Lab results returned with an elevated lipase level at around 3:00 p.m.. This patient has history of recurrent pancreatitis mostly related to alcohol abuse. He states that he is feeling better with treatments received and states that he wants to return home. He reports that he typically feels better after a day or so. I did offer admission into the hospital but he declined this for now. He did receive a prescription for few tablets of [place]. Lab Data Labs: Lab Results 11/27/23 Range/Units 11:10 WBC 7.48 (4.50-11.00) K/uL RBC 4.66 (4.30-5.90) m/uL Hgb 15.2 (13.5-17.5) gm/dL Hct 44.8 (37.0-53.0) % MCV 96 (80-100) fL MCH 33 (26-34) pg MCHC 34 (32-36) gm/dL RDW Coeff of Po 11.7 (11.5-15.5) % Plt Count 271 (140-440) K/uL Neut % (Auto) 79.9 H (42.0-72.0) % Lymph % (Auto) 14.3 L (20-44) % [place] % (Auto) 4.4 (0.0-11.0) % Eos % (Auto) 0.3 (0.0-7.0) % Baso % (Auto) 0.4 (0.0-3.0) % Neut # (Auto) 6.00 (1.7-7.0) K/uL Lymph # (Auto) 1.10 (0.90-2.90) K/uL [place] # (Auto) 0.30 (0.00-0.90) K/UL Eos # (Auto) 0.02 (0.00-0.50) K/uL Baso # (Auto) 0.03 (0.00-0.30) K/uL Abs Immat Gran (auto) 0.05 (0.00-0.30) K/uL Imm/Tot Granulo (auto) 0.7 % Sodium 138 (135-149) mmol/L Potassium 3.9 (3.6-5.1) mmol/L Chloride 106 (96-114) mmol/L Carbon Dioxide 27 (20-32) mmol/L Anion Gap 5 L (7-15) mEq/L BUN 13 (5-24) mg/dL Creatinine 0.7 (0.5-1.5) mg/dL Estimated Creat Clear 126.21 Estimated GFR 114 ml/min Glucose 144 H (60-115) mg/dL Calcium 9.4 (8.4-10.6) mg/dL Total Bilirubin 0.7 (0.1-1.5) mg/dL Direct Bilirubin 0.2 (0.0-0.5) mg/dL AST 25 (12-35) U/L ALT 19 (4-50) U/L Alkaline Phosphatase 71 (40-150) U/L Total Protein 7.7 (6.0-8.3) g/dL Albumin 4.6 (3.3-5.0) g/dL Lipase 1516 H (23-300) U/L Discharge Plan Discharge Clinical Impression: Pancreatitis Patient Disposition: Home, Self-Care Condition: Stable Additional Instructions: Take medication as needed and directed. Take frequent sips of fluids and increase diet as tolerated. Return if not improving or worsening. Prescriptions: New hydrocodone-acetaminophen 5-325 mg tablet 1 tab PO Q4-6H PRN (Reason: pain) Qty: 10 0RF Follow Up/Referrals: Mary Snow, DARRYL [Primary Care Provider] - Stand Alone [facility]: [facility] Inst[facility]
--- OUTSIDE RECORDS SUMMARY | 2023-11-27 10:52 | XMS_ITS | Encounter Summary ---
Author Name Unknown Organization [facility] Address [address] [place] [address] Care Team Providers Care Billet Recorder Name Role Phone Jairo Brock MD Primary Care Provider + [phone] Reason for Visit * Reason Comments QUESTIONS, GENERAL Encounter Details Date Type Department Care Team (Late st Contact Info) Description 07/09/2023 Telephone [facility] [address] [place], [place] [phone] Chandan Sotelo PA-C [address] [place], [place] [address] QUESTIONS, GENERAL Social History Tobacco Use Types [...] did you have it done: 07/06/2023 [Clinical Forming Department End Finder/Chain Saw Mechanic:] Verified no action plan listed in last office visit for reviewing results: Completed. Pt states Chandan Sotelo said he would call pt with the results. If a prescription is needed, what pharmacy would you like that sent to? [Clinical Forming Department End Finder/Chain Saw Mechanic: Was the pharmacy entered into the Preferred Pharmacy Field] No If we are unable to reach you can we leave a detailed message on your voicemail? No, pt states his voicemail box, is full but pt says he will answer the call. If we are unable to reach you can we send you a message in [email or web address]? No, [email or web address] is not active. [Pulmonary Physical Therapist/Chain Saw Mechanic: Relay to patient; We make every effort to get back to you sameday, however it may take 1-2 business days depending on the nature of the communication.] IVING COORDINATOR documented in this encounter Plan of Treatment Not on file documented as of this encounter Visit Diagnoses Not on filedocumented in this encounter Care Teams Billet Recorder Relationship Specialty Start Date End Date Jairo Brock MD [address] [place] [address] PCP - General 07/16/1996 documented as of this encounter
--- OUTSIDE RECORDS SUMMARY | 2023-11-27 10:52 | XMS_ITS | Encounter Summary ---
Author Name Unknown Organization [facility] Address [address], [place] [address] Care Team Providers Care Director Of Gift Planning Name Role Phone Jairo Brock MD Primary Care Provider + [phone] Reason for Referral * Therapies (Routine) - New Request Specialty Diagnoses / Procedures Referred By Contac t Referred To Contact Diagnoses Right shoulder pain, unspecified chronicity [facility] [address] [place] [address] Referral ID Status Reason Start Date Expiration Date V isits Requested Visits Authorized [id number] New Request 07/22/2023 10/20/2024 1 1 Scheduling [...] PT: Type of Revisit In-Person Visit Location: [facility] PT: Treatment Team Team Waitlist? High (Urgent) ERSITY LECTURER Reason for Visit * Reason Comments Shoulder Problem * Therapies (Routine) - New Request Specialty Diagnoses / Procedures Referred By Contac t Referred To Contact Diagnoses Right shoulder pain, unspecified chronicity Chandan Sotelo, ERYNC [address] [facility] [address] Referral ID Status Reason Start Date Expiration Date V isits Requested Visits Authorized [id number] New Request 07/03/2023 07/02/2024 [id number] Encounter Details Date Type Department Care Team (Late st Contact Info) Description 07/22/2023 1:45 PM UNIVERSITY LECTURER Therapy [facility] [address] [address] [place] [address] [place] [address] Right shoulder pain, unspecified chronicity (Primary Dx) [...] Villanueva, PT - 07/22/2023 1:45 PM CST [facility] Physical Therapy - Shoulder Evaluation/Plan of [...] and Restriction of activity 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 Barriers to Goal [...] cuff/periscapular strengthening as pt tolerance allows The check and transfer beader is completed by the therapist and the referring clinician's electronic signature certifies medical necessity for the plan above. ERSITY LECTURER * John Villanueva, PT - 07/22/2023 1:45 PM CST [facility] Physical Therapy Discharge Summary [facility] [...] status at last treatment. John Villanueva PT ERSITY LECTURER documented in this encounter Plan of Treatment Scheduled Referrals Name Type Priority Associated Diagnoses Orde r Schedule Rehab Therapies Follow Up Referral Routine Right shoulder pain, unspecified chronicity Ordered: 07/22/2023 documented as of this encounter Visit Diagnoses Diagnosis Right shoulder pain, unspecified chronicity- Primary documented in this encounter Care Teams Director Of Gift Planning Relationship Specialty Start Date End Date Jairo Brock MD [address], [place] [address] PCP - General 07/16/1996 documented as of this encounter
--- OUTSIDE RECORDS SUMMARY | 2023-11-27 10:52 | XMS_ITS | Encounter Summary ---
Author Name Unknown Organization [facility] Address [address] [place] [address] Care Team Providers Care Rose Grower Name Role Phone Jairo Brock MD Primary Care Provider + [phone] Reason for Visit * Procedure/Equipment (Routine) - Incomplete Specialty Diagnoses / Procedures Referred By Uriah t Referred To Contact Diagnoses Right shoulder pain, unspecified chronicity Procedures US Injection Rt Tendon or Ligament Ana Padilla MD [address] [place] [address] Referral ID Status Reason Start Date Expiration Date V isits Requested Visits Authorized [id number] Incomplete 09/01/2023 11/30/2024 1 1 Encounter Details Date Type Department Care Team (Late st Contact Info) Description 09/11/2023 1:45 PM PUBLICITY AGENT Ancillary Procedure [facility] [address] [facility] [place] [address] Ana Padilla MD [address] [place] [id number] Right shoulder pain, unspecified chronicity Social History [...] TENDON OR LIGAMENT Routine 09/11/2023 2:05 PM PUBLICITY AGENT Right shoulder pain, unspecified chronicity documented in this encounter Results * US Injection Rt Tendon or Ligament (09/11/2023 2:05 PM PUBLICITY AGENT) Anatomical Region Laterality Modality Ultrasound 09/11/2023 1:45 PM PUBLICITY AGENT Impressions 09/11/2023 2:13 PM PUBLICITY AGENT PROCEDURE: The risks, benefits, and alternatives were [...] the right shoulder biceps tendon sheath withoutcomplication. Aan Padilla MD [facility] documented in this encounter Visit Diagnoses Diagnosis Right shoulder pain, unspecified chronicity documented in this encounter Administered Medications Inactive Administered Medications - up to 3 most recent administrations Medication Order MAR Action Action Date Dose Rate Site triamcinolone acetonide (KENALOG-40) 40 MG/ML injection 40 mg 40 mg, Intracapsular, ONCE, On Thu09/11/23 at 1430, For 1 dose Given 09/11/2023 2:04 PM PUBLICITY AGENT 40 mg documented in this encounter Care Teams Rose Grower Relationship Specialty Start Date End Date Jairo Brock MD [address], [place] [address] PCP - General 07/16/1996 documented as of this encounter
--- OUTSIDE RECORDS SUMMARY | 2023-11-27 10:52 | XMS_ITS | Encounter Summary ---
Author Name Unknown Organization [facility] Address [address] [place] [address] Care Team Providers Care Supervisor Floor Assembly Name Role Phone Jairo Brock MD Primary Care Provider + [phone] Reason for Referral * Procedure/Equipment (Routine) - Incomplete Specialty Diagnoses / Procedures Referred By Uriah t Referred To Contact Diagnoses Right shoulder pain, unspecified chronicity Procedures US Injection Rt Tendon or Ligament Ana Padilla MD [address] [place] [address] CLAIRE Godfrey [id number] Referral ID Status Reason Start Date Expiration Date V isits Requested Visits Authorized [id number] Incomplete 09/01/2023 11/30/2024 1 1 A/C TECHNICIAN Reason for Visit * Reason Comments SHOULDER PAIN Encounter Details Date Type Department Care Team (Late st Contact Info) Description 09/01/2023 7:30 AM A/C TECHNICIAN Office Visit [facility] [address] [facility] [place] [address] Ana Padilla MD [address] [place] [address] CLAIRE Godfrey [phone] Right shoulder pain, unspecified chronicity (Primary Dx) [...] level: Not on file Occupational History 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 Lots of hauling [...] Rads Impression below: FINDINGS: Mild glenohumeral and [id number] acromioclavicular degenerative changes. No fracture, dislocation, or [...] on the day of the resident's note. A/C TECHNICIAN documented in this encounter Plan of Treatment Not on file documented as of this encounter Results * US Injection Rt Tendon or Ligament (09/11/2023 2:05 PM A/C TECHNICIAN) Anatomical Region Laterality Modality Ultrasound 09/11/2023 1:45 PM A/C TECHNICIAN Impressions 09/11/2023 2:13 PM A/C TECHNICIAN PROCEDURE: The risks, benefits, and alternatives were [...] biceps tendon sheath withoutcomplication. Ana Padilla MD [facility] documented in this encounter Visit Diagnoses Diagnosis Right shoulder pain, unspecified chronicity- Primary Right shoulder pain, unspecified chronicity documented in this encounter Care Teams Supervisor Floor Assembly Relationship Specialty Start Date End Date Jairo Brock MD [address] [place] [address] PCP - General 07/16/1996 documented as of this encounter
--- OUTSIDE RECORDS SUMMARY | 2023-11-27 10:52 | XMS_ITS | Clinical Summary ---
Author Name Unknown Organization [facility] Address [address] [place] [address] Care Team Providers Care Supervisor Looping Name Role Phone Jairo Brock MD Primary Care Provider + [phone] Source Comments You are receiving this document as you are listed as the primary care provider,follow-up provider, or the patient has been referred to you for consultation.This is in compliance with the Medicare and[facility] EHR Incentive Program,which states Providers who transition [...] Description 10/13/2023 8:30 AM CDT Office Visit [address] [address] Ana Padilla MD Disorder of bursae and tendons in shoulder region (Primary Dx) 09/11/2023 1:45 PM UTILITY HAND Ancillary Procedure [facility] [address] [place] [address] Ana Padilla MD Right shoulder pain, unspecified chronicity 09/01/2023 7:30 AM UTILITY HAND Office Visit [address] [address] Ana Padilla MD Right shoulder pain, unspecified [...] Comments Blood Pressure 138/82 07/15/2011 10:40 AM UTILITY HAND Pulse 72 07/15/2011 10:40 AM UTILITY HAND Temperature 36.6 ??C (97.9 ??F) 07/15/2011 10:[address] Respiratory Rate - - Oxygen Saturation - - Inhaled Oxygen Concentration - - Weight 74.8 kg (165 lb) 08/05/2023 8:49 AM UTILITY HAND Height 172.7 cm (5' 8) 08/05/2023 8:49 AM UTILITY HAND Body Mass Index 25.09 08/05/2023 8:49 AM UTILITY HAND Plan of Treatment Health Maintenance Due Date [...] TENDON OR LIGAMENT Routine 09/11/2023 2:05 PM UTILITY HAND Right shoulder pain, unspecified chronicity from Last 3 Months Results * US Injection Rt Tendon or Ligament (09/11/2023 2:05 PM UTILITY HAND) Anatomical Region Laterality Modality Ultrasound 09/11/2023 1:45 PM UTILITY HAND Impressions 09/11/2023 2:13 PM UTILITY HAND PROCEDURE: The risks, benefits, and alternatives were [...] biceps tendon sheath withoutcomplication. Ana Padilla MD [facility] from Last 3 Months Care Teams Supervisor Looping Relationship Specialty Start Date End Date Jairo Brock MD [address] [place] [address] PCP - General 07/16/1996
--- OUTSIDE RECORDS SUMMARY | 2023-11-27 10:52 | XMS_ITS | Encounter Summary ---
Author Name Unknown Organization [facility] Address [address] [place] [address] Care Team Providers Care Hydraulic Riveter Name Role Phone Jairo Brock MD Primary Care Provider + [phone] Reason for Visit * Reason Comments SHOULDER PAIN Encounter Details Date Type Department Care Team (Late st Contact Info) Description 10/13/2023 8:30 AM CDT Office Visit [facility] [address] [place] [address] Ana Padilla MD [address] [place] [address] Disorder of bursae and tendons in shoulder [...] unspecified documented in this encounter Care Teams Hydraulic Riveter Relationship Specialty Start Date End Date Jairo Brock MD [address] [place] [address] PCP - General 07/16/1996 documented as of this encounter
--- OUTSIDE RECORDS SUMMARY | 2023-11-27 10:52 | XMS_ITS | Clinical Summary ---
Author Name Unknown Organization [facility] Replaced By [facility] Address [address] [address] Phone Care Team Providers Care License Examiner Name Role Phone Unavailable Primary Care Provider [...] Sex Assigned at Male 10/04/2019 4:44 PM ART OBJECTS REPAIRER Gender Identity Male 10/04/2019 4:44 PM ART OBJECTS REPAIRER Sexual Orientation Not on file Obstetrics History Last Filed Vital Signs Vital Sign Reading Time Taken Comments Blood Pressure 137/81 10/05/2019 10:59 AM ART OBJECTS REPAIRER Pulse 123 10/05/2019 10:59 AM ART OBJECTS REPAIRER Temperature 36.9 ??C (98.4 ??F) 10/05/2019 6:47 AM CS T Respiratory Rate 16 10/05/2019 7:40 AM ART OBJECTS REPAIRER Oxygen Saturation 97% 10/05/2019 6:47 AM ART OBJECTS REPAIRER Inhaled Oxygen Concentration - - Weight 79.4 kg (175 lb) 10/04/2019 4:46 PM ART OBJECTS REPAIRER Height 172.7 cm (5' 8) 10/04/2019 4:46 PM ART OBJECTS REPAIRER Body Mass Index 26.61 10/04/2019 4:46 PM ART OBJECTS REPAIRER Plan of Treatment Not on file Advance Directives For more information, please contact: [phone] * Full Code (Latest Code Status on File) Date Activated Date Inactivated Comments 10/04/2019 3:49 PM 10/05/2019 3:47 PM
[2023-11-27] MEDS: HYDROmorphone 0.5 mg/0.5 ml inj IVP (11:25)
[2023-11-27] MEDS: 0.9 % SODIUM CHLORIDE 1000 ml 1,000 ML IV (11:25)
[2023-11-27] MEDS: ONDANSETRON 2 MG/ML inj 4 MG IVP (11:25)
[2023-11-27 11:30] LABS: Basophils Absolute Auto 0.03 K/uL (0.00-0.30); Basophils Percent Auto 0.4 % (0.0-3.0); Eosinophils Absolute Auto 0.02 K/uL (0.00-0.50); Eosinophils Percent Auto 0.3 % (0.0-7.0); Hematocrit 44.8 % (37.0-53.0); Hemoglobin* 15.2 gm/dL (13.5-17.5); Immature Granulocytes Abs Auto 0.05 K/uL (0.00-0.30); Immature Granulocytes Pct Auto 0.7 %; Lymphocytes Percent Auto 14.3 % (20-44); Mean Corpuscular HGB Conc 34 gm/dL (32-36); Mean Corpuscular Hemoglobin 33 pg (26-34); Mean Corpuscular Volume 96 fL (80-100); Monocytes Percent Auto 4.4 % (0.0-11.0); Neutrophils Percent Auto 79.9 % (42.0-72.0); Platelet Count* 271 K/uL (140-440); RDW Coefficient of Variation % 11.7 % (11.5-15.5); Red Blood Count 4.66 m/uL (4.30-5.90); White Blood Count* 7.48 K/uL (4.50-11.00)
[2023-11-27 11:33] LABS: Slide Review Reflex No
[2023-11-27 11:43] LABS: Chloride* 106 mmol/L (96-114)
[2023-11-27 11:44] LABS: Albumin* 4.6 g/dL (3.3-5.0); Potassium* 3.9 mmol/L (3.6-5.1); Sodium* 138 mmol/L (135-149)
[2023-11-27 11:47] LABS: Alkaline Phosphatase* 71 U/L (40-150); Anion Gap 5 mEq/L (7-15); Aspartate Amino Transferase* 25 U/L (12-35); Bilirubin Direct* 0.2 mg/dL (0.0-0.5); Bilirubin Total* 0.7 mg/dL (0.1-1.5); Blood Urea Nitrogen* 13 mg/dL (5-24); Calcium* 9.4 mg/dL (8.4-10.6); Carbon Dioxide* 27 mmol/L (20-32); Creatinine* 0.7 mg/dL (0.5-1.5); Est. Creatinine Clearance* 126.21; Estimated Glomerular Filt Rate 114 ml/min; Glucose* 144 mg/dL (60-115); Lipase* 1516 U/L (23-300); Total Protein* 7.7 g/dL (6.0-8.3)
[2023-11-27 11:48] LABS: Alanine Aminotransferase* 19 U/L (4-50)
[2023-11-27] MEDS: KETOROLAC 30 MG/ML inj IVP (13:10)
[2023-11-27 13:20] VITALS: BP 145/98; PULSE 78; RESP 188; O2SAT 99
== END 2023-11-27 13:21 | disposition home or self-care (01) ==
PROVIDERS: Emergency Provider Emergency Medicine Emergency Medical Services; PCP Physician Assistant Medical
DX: K85.90 Acute pancreatitis without necrosis or infection, unspecified (principal)
CPT/HCPCS: 36415; 80048; 80076; 83690; 85025; 96361; 96374; 96375; 99284; J1170; J1885; J2405; J7030

== ENCOUNTER 2023-12-21 15:33 | Inpatient (IN) | payer OTHER, SELFPAY ==
[2023-12-21] VITALS (14 sets, daily range): BP systolic 167–180; BP diastolic 97–112; PULSE 62–90; RESP 14–18; TEMP 36.8; O2SAT 94–100; BMI 25.1
--- NOTE | 2023-12-21 17:16 | ED.ABDPAIN ---
HPI - Abdominal Pain General Time Seen by Provider: 17:16 Date Seen: 12/21/23 Chief Complaint: Abdominal Pain Stated Complaint: Pancreatitis Time Seen by Provider: 12/21/23 17:16 Source: patient Mode of arrival: ambulatory Limitations: no limitations History of Present Illness HPI narrative: Kp is a very pleasant 48-year-old male with history of alcohol induced pancreatitis, recent alcohol use who comes to the emergency room with complaints of abdominal pain. Patient noted heavy drinking on ThursdayDecember 17 and ThursdayDecember 18 and this morning had the onset of epigastric pain at approximately 0800 hours. This had been associated with significant nausea but no vomiting. However when I am in the room patient does have episode of vomiting. No blood in that vomit. Patient notes that he usually receives Dilaudid for pain and is requesting that. He has not had fever or chills. Still retains as gallbladder but has appendectomy in the past. Denies diarrhea or abdominal bloating. No fever or chills. Nothing really helps the pain. It is constant but then has episodes of spiking. He states that this is similar to his discomfort in the past. Related Data Home Medications Medication Instructions Recorded Confirmed No Known Home Medications 12/21/23 12/21/23 Allergies Allergy/AdvReac Type Severity Reaction Status Date / Time No Known Allergies Allergy Unknown Verified 12/21/23 16:07 Review of Systems Status of ROS Reports: 10 or more systems reviewed and unremarkable except as noted in History and below Const Denies: fever or chills ENMT Denies: difficulty swallowing Cardio Denies: chest pain, swelling of feet/ankles or shortness of breath with exertion Resp Denies: shortness of breath or cough GI Reports: abdominal pain and nausea; Denies: vomiting, diarrhea or difficulty swallowing Denies: painful urination Musculo Denies: back pain PFSH PFSH Medical History Abdominal pain ?R10.9 - Unspecified abdominal pain (ICD-10) Psoriasis ?L40.9 - Psoriasis, unspecified (ICD-10) Cocaine use ?F14.90 - Cocaine use, unspecified, uncomplicated (ICD-10) Alcoholism ?F10.20 - Alcohol dependence, uncomplicated (ICD-10) Non-ulcer dyspepsia ?K30 - Functional dyspepsia (ICD-10) Surgical History H/O shoulder surgery ?Z98.890 - Other specified postprocedural states (ICD-10) History of appendectomy ?Z90.49 - Acquired absence of other specified parts of digestive tract (ICD-10) Family History Father Lung cancer Social History Narrative: Smoker- 1 ppd What is your current living situation?: I presently have a place to live Problems where you live: no known problems Problems where you live details: NA In the past 12 months, utilities in danger of being shut off: no In past 12 months, lack of transportation kept you from medical appts, meetings, work, or getting things needed for daily living: no In the past 12 mos, have been you worried that your food would run out before you had money to buy more?: never true In the past 12 mos, the food you bought just didn't last and you didn't have money to buy more?: never true Smoking Status: Current every day smoker What tobacco products do you use: cigarettes Smoking packs per day: 1 Smoking cigarettes per day: 20.0 Do you use any of these nicotine containing products: None Second hand tobacco smoke exposure: No How often do you have a drink containing alcohol: 2-3 times a week How many standard drinks containing alcohol do you have on a typical day: 3 or 4 How often do you have six or more drinks on one occasion: Never AUDIT-C Alcohol total score: 4 Non-prescribed substance use: denies use Caffeine: Yes (1 cup/coffee) How often does anyone, including family, friends and others, physically hurt you: never How often does anyone, including family, friends and others, insult or talk down to you: never How often does anyone, including family, friends and others, threaten you with harm: never How often does anyone, including family, friends and others, scream or curse at you: never Little interest or pleasure in doing things: not at all Feeling down, depressed, or hopeless: not at all service: No Exam Narrative: Exam Narrative: Alert and oriented. Initially seems somewhat comfortable but then suddenly has increasing pain and then episode of vomiting. External ears eyes nose clear. Lips are dry. Moist mucous membranes. Heart with a regular rate and rhythm and lungs are clear bilaterally. Abdomen is with tenderness especially in the epigastrium. Lower extremities without edema. Moving all extremities. Const: Vital Signs, click to edit/add: Vital Signs - 24 hr 12/21/23 16:04 12/21/23 20:33 12/21/23 20:35 Temperature 98.2 F Pulse Rate 86 Pulse Rate [Pulse Oximeter] 74 Respiratory Rate 18 14 Blood Pressure 170/97 H Blood Pressure [Ri ght Upper Arm] 167/112 H Pulse Oximetry 100 98 97 Oxygen Delivery Me thod Room Air 12/21/23 21:02 12/21/23 21:31 12/21/23 22:02 Temperature Pulse Rate 69 81 Pulse Rate [Pulse Oximeter] Respiratory Rate 16 16 18 Blood Pressure 173/98 H 180/112 H 174/103 H Blood Pressure [Ri ght Upper Arm] Pulse Oximetry 97 97 Oxygen Delivery Me thod 12/21/23 22:30 12/21/23 22:35 12/21/23 22:45 Temperature Pulse Rate 62 66 64 Pulse Rate [Pulse Oximeter] Respiratory Rate Blood Pressure Blood Pressure [Ri ght Upper Arm] Pulse Oximetry 97 96 94 Oxygen Delivery Me thod 12/21/23 23:00 12/21/23 23:15 12/21/23 23:34 Temperature Pulse Rate 66 70 90 Pulse Rate [Pulse Oximeter] Respiratory Rate Blood Pressure Blood Pressure [Ri ght Upper Arm] Pulse Oximetry 95 96 98 Oxygen Delivery Me thod 12/21/23 23:35 12/21/23 23:45 12/22/23 00:00 Temperature Pulse Rate 83 73 72 Pulse Rate [Pulse Oximeter] Respiratory Rate Blood Pressure Blood Pressure [Ri ght Upper Arm] Pulse Oximetry 96 95 94 Oxygen Delivery Me thod Documenting provider has reviewed patient's vital signs: yes Course Reevaluation(s) Reevaluation #1: Patient noted to be much improved. He is going to receive a 2 L of fluids. Awaiting the lipase. At this time given the fact that he is afebrile with normal white count we are going to hold off on a CT. Glucose is elevated at 2 2 8 however. Vital Signs Vital signs: Initial Vital Signs Temperature 98.2 F 12/21/23 16:04 Temperature Source Temporal Artery Scan 12/21/23 16:04 Pulse Rate 74 12/21/23 16:04 Respiratory Rate 18 12/21/23 16:04 Blood Pressure 167/112 H 12/21/23 16:04 Blood Pressure Mean 130 H 12/21/23 16:04 Blood Pressure Position Sitting 12/21/23 16:04 Pulse Oximetry 100 12/21/23 16:04 Oxygen Delivery Method Room Air 12/21/23 16:04 Vital Signs Temperature 98.2 F 12/21/23 16:04 Pulse Rate 74 12/21/23 16:04 Respiratory Rate 18 12/21/23 16:04 Blood Pressure 167/112 H 12/21/23 16:04 Pulse Oximetry 100 12/21/23 16:04 Oxygen Delivery Method Room Air 12/21/23 16:04 Temperature 98.2 F 12/21/23 16:04 Pulse Rate 72 12/22/23 00:00 Respiratory Rate 18 12/21/23 22:02 Blood Pressure 174/103 H 12/21/23 22:02 Pulse Oximetry 94 12/22/23 00:00 Oxygen Delivery Method Room Air 12/21/23 16:04 Medications Administered Medications: Generic Name Dose Route Start Last Admin Trade Name Freq PRN Reason Stop Dose Admin Hydromorphone HCl 0.5 mg 12/21/23 23:37 12/21/23 23:50 Hydromorphone 0.5 Mg/0.5 Ml Inj IVP 12/21/23 23:38 0.5 mg ONCE ONE Administration Discontinued Medications Generic Name Dose Route Start Last Admin Trade Name Freq PRN Reason Stop Dose Admin Hydromorphone HCl 0.5 mg 12/21/23 17:22 12/21/23 17:36 Hydromorphone 0.5 Mg/0.5 Ml Inj IVP 12/21/23 17:23 0.5 mg ONCE ONE Administration Hydromorphone HCl 0.5 mg 12/21/23 20:12 12/21/23 19:23 Hydromorphone 0.5 Mg/0.5 Ml Inj IVP 12/21/23 20:13 0.5 mg ONCE ONE Administration Hydromorphone HCl 0.5 mg 12/21/23 20:49 12/21/23 21:15 Hydromorphone 0.5 Mg/0.5 Ml Inj IVP 12/21/23 20:50 0.5 mg ONCE ONE Administration Sodium Chloride 1,000 mls @ 1,000 mls/hr 12/21/23 17:23 12/21/23 18:35 0.9 % Sodium Chloride 1000 Ml IV 12/21/23 18:22 Infused .Q1H SUBHASH Infusion Sodium Chloride 1,000 mls @ 1,000 mls/hr 12/21/23 19:58 12/21/23 21:20 0.9 % Sodium Chloride 1000 Ml IV 12/21/23 20:57 Infused .Q1H SUBHASH Infusion Ketorolac Tromethamine 15 mg 12/21/23 17:24 12/21/23 17:36 Ketorolac 15 Mg/Ml Inj IVP 12/21/23 17:25 15 mg ONCE ONE Administration Ondansetron HCl 4 mg 12/21/23 17:22 12/21/23 17:36 Ondansetron 2 Mg/Ml Inj IVP 12/21/23 17:23 4 mg ONCE ONE Administration MDM - Abdominal Pain MDM Narrative Medical decision making narrative: 1. Acute on chronic pancreatitis-lipase elevated and CT positive for severe acute on chronic pancreatitis. No evidence of fever, leukocytosis. Glucose is elevated at 228. Patient has had multiple doses of Dilaudid as well as Zofran x1. At this time has had 2 L of normal saline. 2. Alcohol abuse-patient has been noted to had heavy drinking over the last 48 hours. He had no history of alcohol withdrawal symptoms or seizures. Alcohol level 0. 3. Cocaine use-patient has tested positive for cocaine tonight. 4. Disposition-admit to the floor tonight under the care of [facility] hospitalist. Medical Records Attestation: I reviewed the patient's medical records. Lab Data Attestation: I reviewed the patient's lab results. Labs: Lab Results 12/21/23 12/21/23 12/21/23 Range/Units 17:30 20:14 20:59 WBC 10.59 (4.50-11.00) K/uL RBC 4.81 (4.30-5.90) m/uL Hgb 15.7 (13.5-17.5) gm/dL Hct 45.9 (37.0-53.0) % MCV 95 (80-100) fL MCH 33 (26-34) pg MCHC 34 (32-36) gm/dL RDW Coeff of Po 11.9 (11.5-15.5) % Plt Count 218 (140-440) K/uL Neut % (Auto) 80.6 H (42.0-72.0) % Lymph % (Auto) 13.1 L (20-44) % [place] % (Auto) 5.4 (0.0-11.0) % Eos % (Auto) 0.5 (0.0-7.0) % Baso % (Auto) 0.2 (0.0-3.0) % Neut # (Auto) 8.50 H (1.7-7.0) K/uL Lymph # (Auto) 1.40 (0.90-2.90) K/uL [place] # (Auto) 0.60 (0.00-0.90) K/UL Eos # (Auto) 0.05 (0.00-0.50) K/uL Baso # (Auto) 0.02 (0.00-0.30) K/uL Abs Immat Gran (auto) 0.02 (0.00-0.30) K/uL Imm/Tot Granulo (auto) 0.2 % Sodium 132 L (135-149) mmol/L Potassium 3.8 (3.6-5.1) mmol/L Chloride 100 (96-114) mmol/L Carbon Dioxide 24 (20-32) mmol/L Anion Gap 8 (7-15) mEq/L BUN 19 (5-24) mg/dL Creatinine 0.8 (0.5-1.5) mg/dL Estimated Creat Clear 110.44 Estimated GFR 110 ml/min Glucose 228 H (60-115) mg/dL Calcium 9.2 (8.4-10.6) mg/dL Total Bilirubin 1.6 H (0.1-1.5) mg/dL Direct Bilirubin 0.4 (0.0-0.5) mg/dL AST 23 (12-35) U/L ALT 25 (4-50) U/L Alkaline Phosphatase 67 (40-150) U/L C-Reactive Protein 0.7 (0.5-1.0) mg/dL Total Protein 7.8 (6.0-8.3) g/dL Albumin 4.7 (3.3-5.0) g/dL Lipase 8564 H (23-300) U/L Urine Color Yellow (Yellow) Urine Appearance Clear (Clear) Urine pH 5.5 (5.0-8.5) Ur Specific [place] >= 1.030 (1.000-1.030) Urine Protein Trace A (Negative) Urine Glucose (UA) 3+ A (Negative) Urine Ketones 1+ A (Negative) Urine Blood Negative (Negative) Urine Nitrite Negative (Negative) Urine Bilirubin 1+ A (Negative) Urine Urobilinogen 0.2 (0.2-1.0) Ur Leukocyte Esterase Negative (Negative) Urine RBC 0-2 (0-2) Urine WBC 2-5 (0-5) Ur Squamous Epith Cells None (None-Few) Urine Bacteria Few A (None) Urine Opiates Screen POSITIVE A (Negative) Ur Oxycodone Screen Negative (Negative) Urine Methadone Screen Negative (Negative) Ur Barbiturates Screen Negative (Negative) U Tricyclic Antidepress Negative (Negative) Ur Phencyclidine Scrn Negative (Negative) Ur Amphetamines Screen Negative (Negative) U Methamphetamines Scrn Negative (Negative) U Benzodiazepines Scrn Negative (Negative) Urine Cocaine Screen POSITIVE A (Negative) U Marijuana (THC) Screen Negative (Negative) Ur Drug Screen Comment See Note Ethyl Alcohol < 0.01 L (0.01-0.03) % Lab Acknowledgement Test Added Imaging Data CT scan - abdomen: Attestation: I have reviewed the pertinent imaging results. Radiologist's impression: Lower chest: Unremarkable. Liver: Unremarkable. Normal in size and attenuation. No suspicious masses. Gallbladder and bile ducts: Unremarkable. No stones or inflammation. No biliary dilatation. Pancreas: Severe peripancreatic inflammation and edema. Multiple calcifications suggesting chronic pancreatitis as well. Probable chronic pseudocyst with rim calcification adjacent to the pancreatic tail. Spleen: Unremarkable. Normal in size. No masses. Adrenal glands: Unremarkable. No nodules. Kidneys: Unremarkable. No suspicious masses, stones, or hydronephrosis. GI tract: Unremarkable. Normal in caliber. No sign of mass or inflammation. Normal appendix. Vasculature: Abdominal aorta is normal in caliber. Mesenteric arteries are patent. Lymph nodes: No lymphadenopathy. Peritoneum/Abdominal Wall: Unremarkable. No sign of mass or infiltration. No free air or significant free fluid. Pelvis: Unremarkable. Bones: Unremarkable for age. IMPRESSION: Relatively severe acute on chronic pancreatitis Discharge Plan Discharge Clinical Impression: Alcohol abuse, Acute on chronic pancreatitis Patient Disposition: Admitted As Observation Condition: Improved
--- OUTSIDE RECORDS SUMMARY | 2023-12-21 17:28 | XMS_ITS | Clinical Summary ---
Author Name Unknown Organization [facility] Address [address] [place] [address] Care Team Providers Care Tele Marketing Executive Name Role Phone Jairo Brock MD Primary Care Provider + [phone] Source Comments You are receiving this document as you are listed as the primary care provider,follow-up provider, or the patient has been referred to you for consultation.This is in compliance with the Medicare andMedicaid EHR Incentive Program,which states Providers who transition [...] Description 10/13/2023 8:30 AM CDT Office Visit [facility] [address] [place], [place] [id number] Ana Padilla MD Disorder of bursae and tendons in shoulder region (Primary Dx) from Last 3 Months Family [...] Comments Blood Pressure 138/82 07/15/2011 10:40 AM GRANULATOR Pulse 72 07/15/2011 10:40 AM GRANULATOR Temperature 36.6 ??C (97.9 ??F) 07/15/2011 10:[address] Respiratory Rate - - Oxygen Saturation - - Inhaled Oxygen Concentration - - Weight 74.8 kg (165 lb) 08/05/2023 8:49 AM GRANULATOR Height 172.7 cm (5' 8) 08/05/2023 8:49 AM GRANULATOR Body Mass Index 25.09 08/05/2023 8:49 AM GRANULATOR Plan of Treatment Health Maintenance Due Date Last Done Comments Colon Cancer Screening Plan Due 1976 Diabetes Screening- (based o n age and BMI) 1976 Hep C Screening (Preventive Services) 1976 Pneumococcal (1 - PCV) 1982 HIV Screening (Preventive Services) 1992 HepB (1) 1995 Adult Preventive Visit 06/18/1995 06/18/1994 Cholesterol 2011 COVID-19 Vaccine (1 - 2022-2 4 season) 2023 Influenza (Season Ended) 2024 Zoster/Shingles (1 of 2) 2026 DTaP/Tdap/Td (2 [...] on patient's age to complete this topic Care Teams Tele Marketing Executive Relationship Specialty Start Date End Date Jairo Brock MD [address] [place] [id number] PCP - General 07/16/1996
--- OUTSIDE RECORDS SUMMARY | 2023-12-21 17:29 | XMS_ITS | Encounter Summary ---
Author Name Unknown Organization [facility] Address [address] [place] [address] Care Team Providers Care Book Or Script Editor Name Role Phone Jairo Brock MD Primary Care Provider + [phone] Reason for Visit * Reason Comments QUESTIONS, GENERAL Encounter Details Date Type Department Care Team (Late st Contact Info) Description 07/09/2023 Telephone [facility] [address] [place], [place] [phone] Chandan Sotelo PA-C [address] [place], [place] [address] QUESTIONS, GENERAL Social History Tobacco Use Types [...] did you have it done: 07/06/2023 [Clinical High School Music Teacher/Sightseeing Guide:] Verified no action plan listed in last office visit for reviewing results: Completed. Pt states Chandan Sotelo said he would call pt with the results. If a prescription is needed, what pharmacy would you like that sent to? [Clinical High School Music Teacher/Sightseeing Guide: Was the pharmacy entered into the Preferred Pharmacy Field] No If we are unable to reach you can we leave a detailed message on your voicemail? No, pt states his voicemail box, is full but pt says he will answer the call. If we are unable to reach you can we send you a message in [facility] [employer]? No, [facility] is not active. [Cloud Engineer/Sightseeing Guide: Relay to patient; We make every effort to get back to you sameday, however it may take 1-2 business days depending on the nature of the communication.] NT MASON APPRENTICE documented in this encounter Plan of Treatment Not on file documented as of this encounter Visit Diagnoses Not on filedocumented in this encounter Care Teams Book Or Script Editor Relationship Specialty Start Date End Date Jairo Brock MD [address], [place] [address] PCP - General 07/16/1996 documented as of this encounter
--- OUTSIDE RECORDS SUMMARY | 2023-12-21 17:29 | XMS_ITS | Continuity of Care Document ---
Author Name Unknown Organization [facility] Address [address] [address] [place] [address] Phone Care Team Providers Care Pharmaceutical Salesperson Name Role Phone Benjamin Quijano MD Unavailable [...] Diagnoses Date Provider Providers Copied on Encounter [facility], [address] [address], [place], [place], [id number], [place] tel:[phone] [facility] No Information 4 Samm Alexander. [address] [facility], [facility] [address], [place], [place], [id number], [place]. tel:[phone] [facility]. tel:[phone] [facility], [address] [address], [place], [id number], [place] tel:[phone] [facility] Chronic calcific pancreatitis 4 Samm Alexander. [address] [facility], [place] [address], [place], [place], [address], [place]. tel:[phone] Referring Provider: Referral Self, USE FOR SELF REFERRALS. Offic/outpt E&m New Mod-hi [facility], [address] [address], [place], [place], [id number], [place] tel:[phone] [facility] GI Symptoms or Concerns (chief complaint) Chronic calcific pancreatitisA lcohol induced acute pancreatitis without necrosis or infection 4 Samm Alexander. [address] [facility], [address], [id number], [place]. tel:[phone] [facility]. tel:[phone] ring Provider: Mary BROWN, [address], [place], [address]. tel:[phone] [facility], [address] [address], [place], [place], [address], [place] tel:[phone] [facility] No Information 4 Yefri Shah. [address] [facility], [facility] [address], [place], [address], [place]. tel:[phone] Offic/outpt E&m [facility] Mod-hi 2 [facility], [address] [address], [place], [address], [place] tel:[phone] [facility] Pancreatitis (chief complaint) Acute Pancreatitis 3 Kevin Pedraza. [address] [facility], [facility] [address], [place], [place], [address], [place]. tel:[phone] Referring Provider: Referral Self, USE FOR SELF REFERRALS. Subsqt Hosp-da E&m Minr Compl [facility], [address] [address], [place], [id number], [place] tel:[phone] [facility] No Information Sep-1 0 3 No Information Subsqt Hosp-da E&m Stable 15 M [facility], [address] [address], [place], [place], [id number], [place] tel:[phone] [facility] No Information Sep-0 9 3 Dorian Moraes. [address] [facility], [facility] [address], [place], [address], [place]. tel:[phone] Referring Provider: Preston Alarcon DO, [address] [place] [address], [address]. tel:[phone] Subsqt Hosp-da E&m Minr Compl [facility], [address] [address], [place], [place], [address], [place] tel:[phone] [facility] No Information Sep-0 3 Diane Bo. [address] [facility], [facility] [address], [place], [address], [place]. tel:[phone] Referring Provider: Betzy FONTENOT, [address] [place] [address], [id number]. tel:[phone] Init Hosp-da E&m Mod Severity [facility], [address] [address], [place], [place], [address], [place] tel:[phone] [facility] No Information Sep-0 3 Kory Hdz. [address] [place] [address], [facility] [address], [place], [address], [place]. tel:[phone] Referring Provider: Andreina [place], [address] [place] [address], [address]. tel:[phone] Family History Family Member Type Diagnosis Age [...] type Covered constitution party ID Mann trimble(s) [facility] [id number] Social History Type Description Quantity Date Captured [...] Lab Order Hemoglob in A1c, Whole Blood ([id number]), Collected on: , Sent on: Sent Future Order: Lab Order Vitamin D, 25-Hydroxy ([id number]), Collected on: , Sent on: Sent Future Order: Lab Order IgG, Sub classes(1-4) ([id number]), Appointment on: , Collected on: , Sent on: Sent Future Order: Lab Order Vitamin A And E ([id number]), Collected on: , Sent on: Sent History [...] movements a day type 3-4 on the [place] stool chart. from a social standpoint patient [...] up with results through the portal and [id number] in 6 months Related to Chronic calcific pancreatitis Assessments Type Assessment Date No Information Patient Care Teams Name Effective Dates (start - stop) Status Members No Information
--- OUTSIDE RECORDS SUMMARY | 2023-12-21 17:29 | XMS_ITS | Encounter Summary ---
Author Name Unknown Organization [facility] Address [address] [place] [address] Care Team Providers Care Catcher Helper Name Role Phone Jairo Brock MD Primary Care Provider + [phone] Reason for Referral * Therapies (Routine) - Closed Specialty Diagnoses / Procedures Referred By Contac t Referred To Contact Diagnoses Right shoulder pain, unspecified chronicity [facility] [address] [place] [address] Referral ID Status Reason Start Date Expiration Date Visits Re quested Visits Authorized [id number] Closed 07/22/2023 10/20/2024 1 1 Scheduling Instructions If [...] PT: Type of Revisit In-Person Visit Location: [facility] PT: Treatment Team Team Waitlist? High (Urgent) STRIAL ROOF PLUMBER Reason for Visit * Reason Comments Shoulder Problem * Therapies (Routine) - New Request Specialty Diagnoses / Procedures Referred By Contac t Referred To Contact Diagnoses Right shoulder pain, unspecified chronicity Chandan Sotelo, DARRYL [address] [place] [place] [address] Referral ID Status Reason Start Date Expiration Date V isits Requested Visits Authorized [id number] New Request 07/03/2023 07/02/[phone] Encounter Details Date Type Department Care Team (Late st Contact Info) Description 07/22/2023 1:45 PM INDUSTRIAL ROOF PLUMBER Therapy [facility] [address] [address] [place] [address] [place] [address] Right shoulder pain, unspecified chronicity (Primary Dx) [...] Villanueva, PT - 07/22/2023 1:45 PM CST [facility] Physical Therapy - Shoulder Evaluation/Plan of Care [...] and Restriction of activity 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 Barriers to Goal [...] cuff/periscapular strengthening as pt tolerance allows The gravure press set up operator is completed by the therapist and the referring clinician's electronic signature certifies medical necessity for the plan above. STRIAL ROOF PLUMBER * John Villanueva PT - 07/22/2023 1:45 PM CST [facility] Discharge Summary Kp Hansen has [...] status at last treatment. John Villanueva PT STRIAL ROOF PLUMBER documented in this encounter Plan of Treatment Scheduled Referrals Name Type Priority Associated Diagnoses Orde r Schedule Rehab Therapies Follow Up Referral Routine Right shoulder pain, unspecified chronicity Ordered: 07/22/2023 documented as of this encounter Visit Diagnoses Diagnosis Right shoulder pain, unspecified chronicity- Primary documented in this encounter Care Teams Catcher Helper Relationship Specialty Start Date End Date Jairo Brock MD [address] [address] PCP - General 07/16/1996 documented as of this encounter
--- OUTSIDE RECORDS SUMMARY | 2023-12-21 17:29 | XMS_ITS | Encounter Summary ---
Author Name Unknown Organization [facility] Address [address] [place] [address] Care Team Providers Care Silk Washing Machine Operator Name Role Phone Jairo Brock MD Primary Care Provider + [phone] Reason for Visit * Reason Comments SHOULDER PAIN Encounter Details Date Type Department Care Team (Late st Contact Info) Description 10/13/2023 8:30 AM CDT Office Visit [facility] [address] [place] [id number] Ana Padilla MD [address] [place] [address] Disorder of bursae and tendons in shoulder [...] unspecified documented in this encounter Care Teams Silk Washing Machine Operator Relationship Specialty Start Date End Date Jairo Brock MD [address] [place] [id number] PCP - General 07/16/1996 documented as of this encounter
--- OUTSIDE RECORDS SUMMARY | 2023-12-21 17:29 | XMS_ITS | Clinical Summary ---
Author Name Unknown Organization [facility] Address [address] [address] Phone Care Team Providers Care Dot Etcher Name Role Phone Unavailable Primary Care Provider [...] Sex Assigned at Male 10/04/2019 4:44 PM PIECE DYEING MACHINE TENDER Gender Identity Male 10/04/2019 4:44 PM PIECE DYEING MACHINE TENDER Sexual Orientation Not on file Obstetrics History Last Filed Vital Signs Vital Sign Reading Time Taken Comments Blood Pressure 137/81 10/05/2019 10:59 AM PIECE DYEING MACHINE TENDER Pulse 123 10/05/2019 10:59 AM PIECE DYEING MACHINE TENDER Temperature 36.9 ??C (98.4 ??F) 10/05/2019 6:47 AM CS T Respiratory Rate 16 10/05/2019 7:40 AM PIECE DYEING MACHINE TENDER Oxygen Saturation 97% 10/05/2019 6:47 AM PIECE DYEING MACHINE TENDER Inhaled Oxygen Concentration - - Weight 79.4 kg (175 lb) 10/04/2019 4:46 PM PIECE DYEING MACHINE TENDER Height 172.7 cm (5' 8) 10/04/2019 4:46 PM PIECE DYEING MACHINE TENDER Body Mass Index 26.61 10/04/2019 4:46 PM PIECE DYEING MACHINE TENDER Plan of Treatment Not on file Advance Directives For more information, please contact: [phone] * Full Code (Latest Code Status on File) Date Activated Date Inactivated Comments 10/04/2019 3:49 PM 10/05/2019 3:47 PM
[2023-12-21] MEDS: 0.9 % SODIUM CHLORIDE 1000 ml 1,000 ML IV ×2 (17:33→20:20)
[2023-12-21] MEDS: KETOROLAC 15 MG/ML inj IVP (17:36)
[2023-12-21] MEDS: ONDANSETRON 2 MG/ML inj 4 MG IVP (17:36)
[2023-12-21] MEDS: HYDROmorphone 0.5 mg/0.5 ml inj IVP ×4 (17:36→23:50)
[2023-12-21 17:40] LABS: Basophils Absolute Auto 0.02 K/uL (0.00-0.30); Basophils Percent Auto 0.2 % (0.0-3.0); Eosinophils Absolute Auto 0.05 K/uL (0.00-0.50); Eosinophils Percent Auto 0.5 % (0.0-7.0); Hematocrit 45.9 % (37.0-53.0); Hemoglobin* 15.7 gm/dL (13.5-17.5); Immature Granulocytes Abs Auto 0.02 K/uL (0.00-0.30); Immature Granulocytes Pct Auto 0.2 %; Lymphocytes Percent Auto 13.1 % (20-44); Mean Corpuscular HGB Conc 34 gm/dL (32-36); Mean Corpuscular Hemoglobin 33 pg (26-34); Mean Corpuscular Volume 95 fL (80-100); Monocytes Percent Auto 5.4 % (0.0-11.0); Neutrophils Percent Auto 80.6 % (42.0-72.0); Platelet Count* 218 K/uL (140-440); RDW Coefficient of Variation % 11.9 % (11.5-15.5); Red Blood Count 4.81 m/uL (4.30-5.90); White Blood Count* 10.59 K/uL (4.50-11.00)
[2023-12-21 18:20] LABS: Slide Review Reflex No
[2023-12-21 18:47] LABS: Albumin* 4.7 g/dL (3.3-5.0); Chloride* 100 mmol/L (96-114)
[2023-12-21 18:48] LABS: Potassium* 3.8 mmol/L (3.6-5.1); Sodium* 132 mmol/L (135-149)
[2023-12-21 18:50] LABS: Creatinine* 0.8 mg/dL (0.5-1.5); Est. Creatinine Clearance* 110.44; Estimated Glomerular Filt Rate 110 ml/min
[2023-12-21 18:51] LABS: Alanine Aminotransferase* 25 U/L (4-50); Alkaline Phosphatase* 67 U/L (40-150); Anion Gap 8 mEq/L (7-15); Aspartate Amino Transferase* 23 U/L (12-35); Bilirubin Direct* 0.4 mg/dL (0.0-0.5); Bilirubin Total* 1.6 mg/dL (0.1-1.5); Blood Urea Nitrogen* 19 mg/dL (5-24); Calcium* 9.2 mg/dL (8.4-10.6); Carbon Dioxide* 24 mmol/L (20-32); Glucose* 228 mg/dL (60-115); Total Protein* 7.8 g/dL (6.0-8.3)
[2023-12-21 18:54] LABS: C Reactive Protein* 0.7 mg/dL (0.5-1.0); Ethanol* < 0.01 % (0.01-0.03)
[2023-12-21 20:58] LABS: Lipase* 8564 U/L (23-300)
[2023-12-21 21:02] LABS: Appearance Urine Clear (Clear); Bilirubin Urine 1+ (Negative); Blood Urine Negative (Negative); Color Urine Yellow (Yellow); Glucose Urine 3+ (Negative); Ketones Urine 1+ (Negative); Leukocyte Esterase Urine Negative (Negative); Nitrite Urine Negative (Negative); Protein Urine Trace (Negative); Specific Gravity Urine >= 1.030 (1.000-1.030); Urobilinogen Urine 0.2 (0.2-1.0); pH Urine 5.5 (5.0-8.5)
[2023-12-21 21:10] LABS: Bacteria Urine Few; RBC Urine 0-2 (0-2)
[2023-12-21 21:13] LABS: Amphetamine Screen Urine Negative (Negative); Barbiturate Screen Urine Negative (Negative); Benzodiazepines Screen Urine Negative (Negative); Cannabinoid Screen Urine Negative (Negative); Cocaine Screen Urine POSITIVE (Negative); Methadone Screen Urine Negative (Negative); Methamphetamines Screen Urine Negative (Negative); Opiate Screen Urine POSITIVE (Negative); Oxycodone Screen Urine Negative (Negative); Phencyclidine Screen Urine Negative (Negative); Tricyclic Antidepressant Urine Negative (Negative)
--- NOTE | 2023-12-21 21:16 | CT_ITS ---
Patient: SCOTT ACOSTA Facility:?[facility] Patient ID:?[id number] Site Patient ID:?[id number]. Site :?[id number] Study:?CT-Abdomen/Pelvis W/IV-12/21/2023 10:23:08 PM Ordering Physician:MARISSA Final Report: INDICATION: Pancreatitis. TECHNIQUE: CT abdomen and pelvis acquired with 79 cc Isovue 370 IV contrast. COMPARISON: None. FINDINGS: Lower chest: Unremarkable. Liver: Unremarkable. Normal in size and attenuation. No suspicious masses. Gallbladder and bile ducts: Unremarkable. No stones or inflammation. No biliary dilatation. Pancreas: Severe peripancreatic inflammation and edema. Multiple calcifications suggesting chronic pancreatitis as well. Probable chronic pseudocyst with rim calcification adjacent to the pancreatic tail. Spleen: Unremarkable. Normal in size. No masses. Adrenal glands: Unremarkable. No nodules. Kidneys: Unremarkable. No suspicious masses, stones, or hydronephrosis. GI tract: Unremarkable. Normal in caliber. No sign of mass or inflammation. Normal appendix. Vasculature: Abdominal aorta is normal in caliber. Mesenteric arteries are patent. Lymph nodes: No lymphadenopathy. Peritoneum/Abdominal Wall: Unremarkable. No sign of mass or infiltration. No free air or significant free fluid. Pelvis: Unremarkable. Bones: Unremarkable for age. IMPRESSION: Relatively severe acute on chronic pancreatitis. Please note that all CT scans at this facility use dose modulation, iterative reconstruction, and/or weight-based dosing when appropriate to reduce radiation dose to as low as reasonably achievable. Dictated by Sridhar Latham MD @ 12/21/2023 11:40:35 PM Signed by:?Sridhar Latham MD @12/21/2023 11:40:35 PM (Electronic Signature)
--- NOTE | 2023-12-21 23:43 | PC.NURSE ---
report given to Elen hardwick RN
[2023-12-22] VITALS: PULSE 72; O2SAT 94
[2023-12-22] MEDS: LORazepam 2 MG/ML inj 0.5 MG IVP (00:39)
[2023-12-22 01:16] VITALS: BP 151/91; PULSE 80; RESP 18; TEMP 36.1; O2SAT 96; BMI 25.1
--- NOTE | 2023-12-22 03:21 | W.PM.THH&P_ITS ---
Telehealth- H&P: HPI History of Present Illness Date Seen: 12/22/23 Chief complaint: Pancreatitis Narrative: Kp Hansen is seen as an Interactive Telehealth visit. Kp Hansen is a 48 year old male who presented to the emergency room with worsening abdominal pain. Kp has a significant past medical history of recurrent alcohol induced pancreatitis. He states that his last bout of pancreatitis was back in June of last year. He does admit to drinking alcohol on Thursday and Thursday of this last week and then on Thursday starting to have quite severe abdominal pain that he describes in the middle of his abdomen radiating to his back. He did have some nausea but denied any vomiting. He has not had any dark or tarry stools. He states his last bowel movement was yesterday. With the pain medications given in the emergency room he rates his pain currently at a 5-6 out of 10. He is wishing to have some ice chips. In the emergency room he did have a CT scan of the abdomen which showed pancreatic inflammation with also pseudocyst formation according to the emergency room physician. The CT scan report is currently not available to me. He was also noted to have a significantly elevated lipase and is currently being admitted to the medical service for further evaluation and treatment. At the time I am seeing him he does confirm the above history. He otherwise denies any other acute complaints or problems. Review of Systems Status of ROS: Reports: 10 or more systems reviewed and unremarkable except as noted in History and below [facility] Medical History Abdominal pain ?R10.9 - Unspecified abdominal pain (ICD-10) Psoriasis ?L40.9 - Psoriasis, unspecified (ICD-10) Cocaine use ?F14.90 - Cocaine use, unspecified, uncomplicated (ICD-10) Alcoholism ?F10.20 - Alcohol dependence, uncomplicated (ICD-10) Non-ulcer dyspepsia ?K30 - Functional dyspepsia (ICD-10) Surgical History H/O shoulder surgery ?Z98.890 - Other specified postprocedural states (ICD-10) History of appendectomy ?Z90.49 - Acquired absence of other specified parts of digestive tract (ICD- 10) Family History Father Lung cancer Social History Narrative: Smoker- 1 ppd What is your current living situation?: I presently have a place to live Problems where you live: no known problems Problems where you live details: n/a In the past 12 months, utilities in danger of being shut off: no In past 12 months, lack of transportation kept you from medical appts, meetings, work, or getting things needed for daily living: no In the past 12 mos, have been you worried that your food would run out before you had money to buy more?: never true In the past 12 mos, the food you bought just didn't last and you didn't have money to buy more?: never true Smoking Status: Current every day smoker What tobacco products do you use: cigarettes Smoking packs per day: 1 Smoking cigarettes per day: 20.0 Do you use any of these nicotine containing products: None Second hand tobacco smoke exposure: No How often do you have a drink containing alcohol: 2-3 times a week How many standard drinks containing alcohol do you have on a typical day: 3 or 4 How often do you have six or more drinks on one occasion: Never AUDIT-C Alcohol total score: 4 Non-prescribed substance use: denies use Caffeine: Yes How often does anyone, including family, friends and others, physically hurt you : never How often does anyone, including family, friends and others, insult or talk down to you: never How often does anyone, including family, friends and others, threaten you with harm: never How often does anyone, including family, friends and others, scream or curse at you: never Little interest or pleasure in doing things: not at all Feeling down, depressed, or hopeless: not at all service: No Meds Home Medications and Allergies Home Medications Medication Instructions Recorded Confirmed Type No Known Home Medications 12/21/23 12/21/23 History Allergies Allergy/AdvReac Type Severity Reaction Status Date / Time No Known Allergies Allergy Unknown Verified 12/21/23 16:07 Exam Narrative Exam Narrative: Physical Exam GENERAL: vital signs reviewed, well developed and nourished, in minimal distress HEENT: pupils are equal round and reactive to light, extraocular movements are grossly within normal limits and oral mucosa is moist. NECK: Supple without lymphadenopathy or thyromegaly according to nursing staff examination observation HEART: Regular rate and rhythm without any rubs, murmurs or gallops. LUNGS: Clear to auscultation bilaterally with good air movement throughout ABDOMEN: Observation from nurse assisted exam, abdomen appears soft with diffuse tender throughout the abdomen especially over the mid epigastric area. Bowel sounds are positive. EXTREMITIES: Strength and sensation is observed to be grossly within normal limits in the upper and lower extremities. No focal strength deficit is observed SKIN: Observed warm and dry with color normal NEURO: Alert, awake and oriented ?3. Answers all questions appropriately. No focal neuro deficits are noted. PSYCH: Affect normal Const Vital Signs, click to edit/add: Vital Signs - 24 hr 12/21/23 16:04 12/21/23 20:33 12/21/23 20:35 Temperature 98.2 F Pulse Rate 86 Pulse Rate [Pulse Oximeter] 74 Respiratory Rate 18 14 Blood Pressure 170/97 H Blood Pressure [Left Arm] Blood Pressure [Right Upper Arm] 167/112 H Pulse Oximetry 100 98 97 Oxygen Delivery Method Room Air 12/21/23 21:02 12/21/23 21:31 12/21/23 22:02 Temperature Pulse Rate 69 81 Pulse Rate [Pulse Oximeter] Respiratory Rate 16 16 18 Blood Pressure 173/98 H 180/112 H 174/103 H Blood Pressure [Left Arm] Blood Pressure [Right Upper Arm] Pulse Oximetry 97 97 Oxygen Delivery Method 12/21/23 22:30 12/21/23 22:35 12/21/23 22:45 Temperature Pulse Rate 62 66 64 Pulse Rate [Pulse Oximeter] Respiratory Rate Blood Pressure Blood Pressure [Left Arm] Blood Pressure [Right Upper Arm] Pulse Oximetry 97 96 94 Oxygen Delivery Method 12/21/23 23:00 12/21/23 23:15 12/21/23 23:34 Temperature Pulse Rate 66 70 90 Pulse Rate [Pulse Oximeter] Respiratory Rate Blood Pressure Blood Pressure [Left Arm] Blood Pressure [Right Upper Arm] Pulse Oximetry 95 96 98 Oxygen Delivery Method 12/21/23 23:35 12/21/23 23:45 12/22/23 00:00 Temperature Pulse Rate 83 73 72 Pulse Rate [Pulse Oximeter] Respiratory Rate Blood Pressure Blood Pressure [Left Arm] Blood Pressure [Right Upper Arm] Pulse Oximetry 96 95 94 Oxygen Delivery Method 12/22/23 01:16 Temperature 96.9 F L Pulse Rate Pulse Rate [Pulse Oximeter] 80 Respiratory Rate 18 Blood Pressure Blood Pressure [Left Arm] 151/91 H Blood Pressure [Right Upper Arm] Pulse Oximetry 96 Oxygen Delivery Method Room Air Documenting provider has reviewed patient's vital signs: yes Hospitalist - H&P: Result Labs Labs: Short CBC 12/21/23 Range/Units 17:30 WBC 10.59 (4.50-11.00) K/uL Hgb 15.7 (13.5-17.5) gm/dL Hct 45.9 (37.0-53.0) % Plt Count 218 (140-440) K/uL BMP 12/21/23 17:30 Sodium 132 L Potassium 3.8 Chloride 100 Carbon Dioxide 24 BUN 19 Creatinine 0.8 Glucose 228 H Calcium 9.2 Liver Function 12/21/23 Range/Units 17:30 Total Bilirubin 1.6 H (0.1-1.5) mg/dL Direct Bilirubin 0.4 (0.0-0.5) mg/dL AST 23 (12-35) U/L ALT 25 (4-50) U/L Alkaline Phosphatase 67 (40-150) U/L Albumin 4.7 (3.3-5.0) g/dL Urine 12/21/23 Range/Units 20:59 Urine Color Yellow (Yellow) Urine Appearance Clear (Clear) Urine pH 5.5 (5.0-8.5) Ur Specific [place] >= 1.030 (1.000-1.030) Urine Protein Trace A (Negative) Urine Glucose (UA) 3+ A (Negative) Assessment and Plan Assessment and plan (1) Acute on chronic pancreatitis: Problem comment: Patient has had multiple recurrent hospital admissions for acute pancreatitis. Also has had multiple episodes of abdominal pain managed at home. This likely reflects his chronic pancreatitis with acute exacerbations related to alcohol use. - Ct scan of abd/pelvis 05/31/2023: IMPRESSION: Acute pancreatitis with diffuse peripancreatic edema, no evidence of pancreatic necrosis/abscess/new pseudocyst. Stable 2 cm peripherally calcified structure within the pancreatic tail. New/progressive punctate calcifications and pancreatic tail, suggesting chronic pancreatitis changes. New 6 millimeter focal calcification in the pancreatic head, indeterminate. Common bile duct calcification/stone not entirely excludable, clinical/laboratory correlation recommended. - NPO, IVF, analgesics, antiemetics, nutrition consult, advance diet as tolerated. - ambulate in halls of hospital minimum of 6 times daily, as well as other venous thromboembolism prophylaxis efforts. Status: Acute Plan Assessment: 1. Acute onset abdominal pain with nausea 2. Elevated lipase and CT scan evidence of pancreatic inflammation consistent with acute pancreatitis 3. Recent alcohol intake likely contributing to #1 and #2 above 4. Hypertension 5. Minor volume depletion/dehydration from decreased oral intake 6. Alcohol abuse Plan: At this time pK will be admitted to the medical service for further evaluation and treatment for recurrent pancreatitis likely alcohol induced. I will ask him to be n.p.o. and will put him on some aggressive IV fluids for volume resuscitation and hydration. I will offer him both oral and IV pain medications for moderate and severe pain for his recurrent pancreatitis. I will follow-up with chemistries and hematology labs in the a.m. Will need to watch his electrolytes closely as well as his hemoglobin with the current amount of inflammation and pseudocyst formation around his pancreas. Will continue to watch closely for any sign of hemorrhagic or necrotic pancreatitis. I have advised him that he will need to remain abstinent from any further alcohol usage with his history of multiple bouts of recurrent pancreatitis. I will ask pharmacy to reconcile his home medications as it does not appear to be taking any medications currently. I have discussed this plan with Kp and he is agreeable to proceed. Will continue to follow closely from medical standpoint. I have discussed CODE STATUS with Kp and he does wish to be a full code. I will order this in his chart. Telehealth: Statement Statement Telehealth Visit: Today's History and Physical is provided via interactive telehealth by Ananda Mason MD.? Patient is located at [facility].? Provider is located at [facility].? Nursing staff assisted with the patient's exam. The visit being done today meets criteria for a telehealth visit and the patient or patient?s parent/guardian is aware the visit is a telehealth visit. Camera Start Time: 03:04 Camera End Time: 03:15
[2023-12-22] MEDS: PANTOPRAZOLE SODIUM 40 MG INJ IVP (03:57)
[2023-12-22] MEDS: LACTATED RINGERS 1000 ML 1,000 ML 150 ML IV (03:57)
[2023-12-22] MEDS: OXYCODONE 5 MG TABLET PO (03:58)
[2023-12-22 06:47] LABS: Eosinophils Absolute Auto 0.04 K/uL (0.00-0.50); Eosinophils Percent Auto 0.6 % (0.0-7.0); Hematocrit 41.5 % (37.0-53.0); Hemoglobin* 14.1 gm/dL (13.5-17.5); Immature Granulocytes Abs Auto 0.02 K/uL (0.00-0.30); Immature Granulocytes Pct Auto 0.3 %; Lymphocytes Absolute Auto 1.44 K/uL (0.90-2.90); Lymphocytes Percent Auto 20.3 % (20-44); Mean Corpuscular HGB Conc 34 gm/dL (32-36); Mean Corpuscular Hemoglobin 33 pg (26-34); Mean Corpuscular Volume 97 fL (80-100); Monocytes Percent Auto 5.8 % (0.0-11.0); Platelet Count* 189 K/uL (140-440); RDW Coefficient of Variation % 11.8 % (11.5-15.5); Slide Review Reflex No
[2023-12-22 07:00] VITALS: BP 156/98; PULSE 78; RESP 16; TEMP 36.3; O2SAT 96
[2023-12-22 07:32] LABS: Albumin* 3.5 g/dL (3.3-5.0)
[2023-12-22 07:33] LABS: Chloride* 103 mmol/L (96-114); Potassium* 3.8 mmol/L (3.6-5.1); Sodium* 133 mmol/L (135-149)
[2023-12-22 07:35] LABS: Alkaline Phosphatase* 55 U/L (40-150); Anion Gap 5 mEq/L (7-15); Aspartate Amino Transferase* 18 U/L (12-35); Bilirubin Total* 1.3 mg/dL (0.1-1.5); Blood Urea Nitrogen* 11 mg/dL (5-24); Carbon Dioxide* 25 mmol/L (20-32); Creatinine* 0.6 mg/dL (0.5-1.5); Est. Creatinine Clearance* 147.25; Estimated Glomerular Filt Rate 120 ml/min; Total Protein* 6.3 g/dL (6.0-8.3)
[2023-12-22 07:36] LABS: Alanine Aminotransferase* 19 U/L (4-50); Calcium* 8.3 mg/dL (8.4-10.6); Glucose* 155 mg/dL (60-115)
[2023-12-22 07:55] LABS: Lipase* 6388 U/L (23-300)
--- NOTE | 2023-12-22 08:41 | PC.NURSE ---
Patient arrived from ED at approximately?0100. Pleasant, alert and oriented. Independent in room.?Given PRN Oxycodone at 0400 for pain in abdomen rated 7/10. Denies any other symptoms. ?
--- NOTE | 2023-12-22 09:56 | P.DS_ITS ---
DS: Providers Provider Date Seen: 12/22/23 Date of admission: 12/22/23 01:00 Primary care physician: Mary Snow PA-C Admitting Clinician: Maddy Mitchell MD Attending Physician on discharge: CRISTHIAN Lui, D[facility]YL [facility] Date of Discharge: 12/22/23 DS: Diagnosis Discharge Diagnosis (1) Acute on chronic pancreatitis: Status: Acute Problem details: Patient has had multiple recurrent hospital admissions for acute pancreatitis. Also has had multiple episodes of abdominal pain managed at home. This likely reflects his chronic pancreatitis with acute exacerbations related to alcohol use. - Ct scan of abd/pelvis 05/31/2023: IMPRESSION: Acute pancreatitis with diffuse peripancreatic edema, no evidence of pancreatic necrosis/abscess/new pseudocyst. Stable 2 cm peripherally calcified structure within the pancreatic tail. New/progressive punctate calcifications and pancreatic tail, suggesting chronic pancreatitis changes. New 6 millimeter focal calcification in the pancreatic head, indeterminate. Common bile duct calcification/stone not entirely excludable, clinical/laboratory correlation recommended. Patient was managed with IVF, p.r.n. analgesics and antiemetics, remained NPO. The following morning, patient requested to leave, following advancement to clear diet, understanding this would be AMA, in order to get home for his kid's birthday (has to have the crock pot started by noon). Denied pain but remained tender with guarding on palpation. Had no further nausea. No vomiting overnight. Understands risks of under management of acute episode. Will return to ED if new or worsening symptoms. DS: Summary Hospital Course Hospital Course: [age] year old male past medical history significant for acute on chronic recurrent pancreatitis, alcohol abuse, hypertension, cocaine use was admitted to the medical floor for management acute on chronic recurrent pancreatitis. Course of care and details as noted above. Less than 12 hours after admission, patient requesting to leave, understanding this would be AMA. Denies pain, nausea, vomiting however on palpation of the abdomen continues to be tender with guarding in the right upper quadrant. Lipase noted to trend down however remains >6000. Blood alcohol <0.01. UDS positive for cocaine. UC pending. Diet advanced to clears, patient left AMA understanding risks. Will return to ED if new or worsening symptoms. Remainder of chronic medical comorbidities were monitored and managed with home medications. Status at Discharge Overall status at discharge: patient is progressing back to baseline Time Spent with Patient Time attestation: Total time spent providing and/or coordinating discharge services: Time spent: Greater than 30 minutes Exam Narrative: Exam Narrative: PHYSICAL EXAM General: Pleasant, conversant, NAD Cardiovascular: RRR Pulmonary: No dyspnea Abdomen: Soft, nondistended, right upper quadrant tenderness noted with guarding Neurological: Alert, answering questions appropriately Skin: Warm, dry. Const: Vital Signs, click to edit/add: Vital Signs - 24 hr 12/21/23 16:04 12/21/23 20:33 12/21/23 20:35 Temperature 98.2 F Pulse Rate 86 Pulse Rate [Pulse Oximeter] 74 Respiratory Rate 18 14 Blood Pressure 170/97 H Blood Pressure [Le ft Arm] Blood Pressure [Ri ght Upper Arm] 167/112 H Pulse Oximetry 100 98 97 Oxygen Delivery Me thod Room Air 12/21/23 21:02 12/21/23 21:31 12/21/23 22:02 Temperature Pulse Rate 69 81 Pulse Rate [Pulse Oximeter] Respiratory Rate 16 16 18 Blood Pressure 173/98 H 180/112 H 174/103 H Blood Pressure [Le ft Arm] Blood Pressure [Ri ght Upper Arm] Pulse Oximetry 97 97 Oxygen Delivery Me thod 12/21/23 22:30 12/21/23 22:35 12/21/23 22:45 Temperature Pulse Rate 62 66 64 Pulse Rate [Pulse Oximeter] Respiratory Rate Blood Pressure Blood Pressure [Le ft Arm] Blood Pressure [Ri ght Upper Arm] Pulse Oximetry 97 96 94 Oxygen Delivery Me thod 12/21/23 23:00 12/21/23 23:15 12/21/23 23:34 Temperature Pulse Rate 66 70 90 Pulse Rate [Pulse Oximeter] Respiratory Rate Blood Pressure Blood Pressure [Le ft Arm] Blood Pressure [Ri ght Upper Arm] Pulse Oximetry 95 96 98 Oxygen Delivery Me thod 12/21/23 23:35 12/21/23 23:45 12/22/23 00:00 Temperature Pulse Rate 83 73 72 Pulse Rate [Pulse Oximeter] Respiratory Rate Blood Pressure Blood Pressure [Le ft Arm] Blood Pressure [Ri ght Upper Arm] Pulse Oximetry 96 95 94 Oxygen Delivery Me thod 12/22/23 01:16 12/22/23 07:00 Temperature 96.9 F L 97.4 F L Pulse Rate Pulse Rate [Pulse Oximeter] 80 78 Respiratory Rate 18 16 Blood Pressure Blood Pressure [Le ft Arm] 151/91 H 156/98 H Blood Pressure [Ri ght Upper Arm] Pulse Oximetry 96 96 Oxygen Delivery Me thod Room Air Room Air DS: Data Data Completed and Pending Pending studies at discharge: Labs on day of discharge: Labs from last 24 hours 12/22/23 12/21/23 12/21/23 06:35 20:59 20:14 WBC 7.10 RBC 4.30 Hgb 14.1 Hct 41.5 MCV 97 MCH 33 MCHC 34 RDW Coeff of Po 11.8 Plt Count 189 Neut % (Auto) 73.0 H Lymph % (Auto) 20.3 [place] % (Auto) 5.8 Eos % (Auto) 0.6 Baso % (Auto) 0.0 Neut # (Auto) 5.20 Lymph # (Auto) 1.44 [place] # (Auto) 0.40 Eos # (Auto) 0.04 Baso # (Auto) 0.00 Abs Immat Gran (auto) 0.02 Imm/Tot Granulo (auto) 0.3 Sodium 133 L Potassium 3.8 Chloride 103 Carbon Dioxide 25 Anion Gap 5 L BUN 11 Creatinine 0.6 Estimated Creat Clear 147.25 Estimated GFR 120 Glucose 155 H Calcium 8.3 L Total Bilirubin 1.3 Direct Bilirubin AST 18 ALT 19 Alkaline Phosphatase 55 C-Reactive Protein Total Protein 6.3 Albumin 3.5 Lipase 6388 H Urine Color Yellow Urine Appearance Clear Urine pH 5.5 Ur Specific [place] >= 1.030 Urine Protein Trace A Urine Glucose (UA) 3+ A Urine Ketones 1+ A Urine Blood Negative Urine Nitrite Negative Urine Bilirubin 1+ A Urine Urobilinogen 0.2 Ur Leukocyte Esterase Negative Urine RBC 0-2 Urine WBC 2-5 Ur Squamous Epith Cells None Urine Bacteria Few A Urine Opiates Screen POSITIVE A Ur Oxycodone Screen Negative Urine Methadone Screen Negative Ur Barbiturates Screen Negative U Tricyclic Antidepress Negative Ur Phencyclidine Scrn Negative Ur Amphetamines Screen Negative U Methamphetamines Scrn Negative U Benzodiazepines Scrn Negative Urine Cocaine Screen POSITIVE A U Marijuana (THC) Screen Negative Ur Drug Screen Comment See Note Ethyl Alcohol Lab Acknowledgement Test Added 12/21/23 17:30 WBC 10.59 RBC 4.81 Hgb 15.7 Hct 45.9 MCV 95 MCH 33 MCHC 34 RDW Coeff of Po 11.9 Plt Count 218 Neut % (Auto) 80.6 H Lymph % (Auto) 13.1 L [place] % (Auto) 5.4 Eos % (Auto) 0.5 Baso % (Auto) 0.2 Neut # (Auto) 8.50 H Lymph # (Auto) 1.40 [place] # (Auto) 0.60 Eos # (Auto) 0.05 Baso # (Auto) 0.02 Abs Immat Gran (auto) 0.02 Imm/Tot Granulo (auto) 0.2 Sodium 132 L Potassium 3.8 Chloride 100 Carbon Dioxide 24 Anion Gap 8 BUN 19 Creatinine 0.8 Estimated Creat Clear 110.44 Estimated GFR 110 Glucose 228 H Calcium 9.2 Total Bilirubin 1.6 H Direct Bilirubin 0.4 AST 23 ALT 25 Alkaline Phosphatase 67 C-Reactive Protein 0.7 Total Protein 7.8 Albumin 4.7 Lipase 8564 H Urine Color Urine Appearance Urine pH Ur Specific [place] Urine Protein Urine Glucose (UA) Urine Ketones Urine Blood Urine Nitrite Urine Bilirubin Urine Urobilinogen Ur Leukocyte Esterase Urine RBC Urine WBC Ur Squamous Epith Cells Urine Bacteria Urine Opiates Screen Ur Oxycodone Screen Urine Methadone Screen Ur Barbiturates Screen U Tricyclic Antidepress Ur Phencyclidine Scrn Ur Amphetamines Screen U Methamphetamines Scrn U Benzodiazepines Scrn Urine Cocaine Screen U Marijuana (THC) Screen Ur Drug Screen Comment Ethyl Alcohol < 0.01 L Lab Acknowledgement Preliminary micro results at discharge 12/21/23 20:59 Urine Culture - Preliminary Urine,Clean Catch Culture in Progress Imaging CT scan - abdomen: Attestation: I have reviewed the pertinent imaging results. Radiologist's impression: CT abdomen and pelvis acquired with 79 cc Isovue 370 IV contrast. COMPARISON: None. FINDINGS: Lower chest: Unremarkable. Liver: Unremarkable. Normal in size and attenuation. No suspicious masses. Gallbladder and bile ducts: Unremarkable. No stones or inflammation. No biliary dilatation. Pancreas: Severe peripancreatic inflammation and edema. Multiple calcifications suggesting chronic pancreatitis as well. Probable chronic pseudocyst with rim calcification adjacent to the pancreatic tail. Spleen: Unremarkable. Normal in size. No masses. Adrenal glands: Unremarkable. No nodules. Kidneys: Unremarkable. No suspicious masses, stones, or hydronephrosis. GI tract: Unremarkable. Normal in caliber. No sign of mass or inflammation. Normal appendix. Vasculature: Abdominal aorta is normal in caliber. Mesenteric arteries are patent. Lymph nodes: No lymphadenopathy. Peritoneum/Abdominal Wall: Unremarkable. No sign of mass or infiltration. No free air or significant free fluid. Pelvis: Unremarkable. Bones: Unremarkable for age. IMPRESSION: Relatively severe acute on chronic pancreatitis. Discharge Plan Discharge Disposition: Left Against Medical Advice Date of Admission: 12/22/23 03:17 Attending Provider on Discharge: Niharika Johnson Primary Care Provider: Mary Snow Condition: Improved Discharge Medications: Continued lisinopril 20 mg tablet 20 mg PO DAILY Discharge Orders: Discharge Order (Routine); Ordered 12/22/23 Ordered By: Niharika Johnson Discharge Comments: We recommend you remain in the hospital to receive ongoing care for your acute on chronic pancreatitis, including necessary IV fluids, pain and nausea management as needed, slow advancement of diet as tolerated. You are leaving AMA (against medical advice). If your symptoms return or worsen, you should return to the ED.
== END 2023-12-22 11:05 | disposition left against medical advice (07) | DRG 440 ==
LOC: ED 12-22 00:17 → MEDSURG 12-22 01:01
PROVIDERS: Admitting Provider Internal Medicine; Emergency Provider Family Medicine; PCP Physician Assistant Medical; Visit Provider Family Medicine
DX: K85.90 Acute pancreatitis without necrosis or infection, unspecified (principal); K86.0 Alcohol-induced chronic pancreatitis; F10.10 Alcohol abuse, uncomplicated; F14.90 Cocaine use, unspecified, uncomplicated
CPT/HCPCS: 36415; 74177; 80053; 80306; 81001; 82077; 82248; 83690; 85025; 86140; 87086; 94761; 99284; 99285; A9270; C9113; J1170; J1885; J2060; J2405; J7030; J7120; Q9967

== ENCOUNTER 2024-03-28 08:05 | Outpatient (CLI) | payer OTHER, SELFPAY ==
--- OUTSIDE RECORDS SUMMARY | 2024-04-01 00:23 | XMS_ITS | Encounter Summary ---
Author Organization [facility] Address [address] [place] [address] Care Team Providers Care Wellness Ambassador Name Role Phone Jairo Brock MD Primary Care Provider + [phone] Reason for Referral * Procedure/Equipment (Routine) - Incomplete Specialty Diagnoses / Procedures Referred By Uriah t Referred To Contact Diagnoses Right shoulder pain, unspecified chronicity Disorder of bursae and tendons in shoulder region Procedures US Injection Rt Tendon or Ligament Ana Padilla MD [address] [place] [address] CLA[place] Godfrey [id number] Referral ID Status Reason Start Date Expiration Date V isits Requested Visits Authorized [id number] Incomplete 02/15/2024 05/16/2025 1 1 Reason for Visit * Reason Comments QUESTIONS, GENERAL Entered automaticall y based on patient selection in [employer]. Encounter Details Date Type Department Care Team (Late st Contact Info) Description 02/15/2024 11:30 AM CDT E-Visit [facility] [address] [facility] [place], [place] [id number] Ana Padilla MD [address] [place] [address] CLAIRE Godfrey [phone] Dx: Right shoulder pain, unspecified chronicity (Primary Dx) [...] * US Injection Rt Tendon or Ligament (02/22/2024 8:26 AM CDT) Anatomical Region Laterality Modality Ultrasound 02/22/2024 7:48 AM CDT Impressions 02/22/2024 8:33 AM CDT PROCEDURE: Ultrasound-guided right biceps tendon sheath steroid injection FINDINGS: The risks, benefits, and alternatives were discussed with the patient gave full written and verbal consent to proceed. A final pause was performed prior to the procedure to verify patient identification and site of procedure. Using 1% lidocaine as local anesthesia, sterile technique, and ultrasound guidance, a ?25- gauge needle was advanced into the right biceps tendon sheath. Under direct ultrasound visualization, approximately 2 of 1% lidocaine was administered into the tendon sheath. Subsequently, 1mL of ??40 mg triamcinolone (40mg/mL) was injected into the tendon sheath. Permanent images were saved. There were no immediate complications. Preprocedure pain level 7/10; postprocedure pain level 0/10. Narrative Procedure Note Jennifer Cano PA-C - 02/22/2024 IMPRESSION PROCEDURE: Ultrasound-guided right biceps tendon sheath steroidinjection FINDINGS: The risks, benefits, and alternatives were discussed with thepatient gave full written and verbal consent to proceed. A final pause wasperformed prior to the procedure to verify patient identification and siteof procedure. Using 1% lidocaine as local anesthesia, sterile technique,and ultrasound guidance, a ?25-gauge needle was advanced into the rightbiceps tendon sheath. Under direct ultrasound visualization, approximately2 of 1% lidocaine was administered into the tendon sheath. Subsequently,1mL of 40 mg triamcinolone (40mg/mL) was injected into the tendon sheath.Permanent images were saved. There were no immediate complications. Preprocedure pain level 7/10; postprocedure pain level 0/10. Ana Padilla MD [facility] documented in this encounter Visit Diagnoses Diagnosis Right shoulder pain, unspecified chronicity- Primary Right rotator cuff tendinitis Disorder of bursae and tendons in shoulder region Disorders of bursae and tendons in shoulder region, unspecified Right shoulder pain, unspecified chronicity Disorder of bursae and tendons in shoulder region Disorders of bursae and tendons in shoulder region, unspecified documented in this encounter Care Teams Wellness Ambassador Relationship Specialty Start Date End Date Jairo Brock MD [address], [place] [address] PCP - General 07/16/1996 documented as of this encounter
--- OUTSIDE RECORDS SUMMARY | 2024-04-01 00:23 | XMS_ITS | Clinical Summary ---
Author Organization [facility] Address [address] [address] Phone Care Team Providers Care Hospital Administrative Assistant Name Role Phone Unavailable Primary Care Provider [...] Sex Assigned at Male 10/04/2019 4:44 PM [employer]INTED [employer]AR[employer]DER LEVELER Gender Identity Male 10/04/2019 4:44 PM [employer] LEVELER Sexual Orientation Not on file Obstetrics History Last Filed Vital Signs Vital Sign Reading Time Taken Comments Blood Pressure 137/81 10/05/2019 10:59 AM [employer]AR[employer] SOLDER LEVELER Pulse 123 10/05/2019 10:59 AM PR[employer]AR[employer] SOLDER LEVELER Temperature 36.9 ??C (98.4 ??F) 10/05/2019 6:47 AM CS T Respiratory Rate 16 10/05/2019 7:40 AM PR[employer]AR[employer] SOLDER LEVELER Oxygen Saturation 97% 10/05/2019 6:47 AM PR[employer]AR[employer] SOLDER LEVELER Inhaled Oxygen Concentration - - Weight 79.4 kg (175 lb) 10/04/2019 4:46 PM [employer] LEVELER Height 172.7 cm (5' 8) 10/04/2019 4:46 PM [employer] LEVELER Body Mass Index 26.61 10/04/2019 4:46 PM [employer]AR[employer] LEVELER Plan of Treatment Not on file Advance Directives For more information, please contact: [phone] * Full Code (Latest Code Status on File) Date Activated Date Inactivated Comments 10/04/2019 3:49 PM 10/05/2019 3:47 PM
--- OUTSIDE RECORDS SUMMARY | 2024-04-01 00:23 | XMS_ITS | Encounter Summary ---
Author Organization [facility] Address [address] [place] [address] Care Team Providers Care Care Specialist Name Role Phone Jairo Brock MD Primary Care Provider + [phone] Reason for Visit * Procedure/Equipment (Routine) - Incomplete Specialty Diagnoses / Procedures Referred By Uriah triana Referred To Contact Diagnoses Right shoulder pain, unspecified chronicity Disorder of bursae and tendons in shoulder region Procedures US Injection Rt Tendon or Ligament Ana Padilla MD [address] [facility] [place] [phone] Referral ID Status Reason Start Date Expiration Date V isits Requested Visits Authorized [id number] Incomplete 02/15/2024 05/16/2025 1 1 Encounter Details Date Type Department Care Team (Late st Contact Info) Description 02/22/2024 8:00 AM CDT Ancillary Procedure [facility] - Ultrasound [address] [place], [place] [address] Ana Padilla MD [address] [facility] CLAIRE Godfrey [phone] Right shoulder pain, unspecified chronicity; Disorder of bursae and tendons in shoulder region Social History Tobacco Use Types Packs/Day Years [...] US INJECTION RT TENDON OR LIGAMENT Routine 02/22/2024 8:26 AM CDT Right shoulder pain, unspecified chronicity Disorder of bursae and tendons in shoulder region documented in this encounter Results * US [...] postprocedure pain level 0/10. Ana Padilla MD [facility] documented in this encounter Visit Diagnoses Diagnosis Right shoulder pain, unspecified chronicity Disorder of bursae and tendons in shoulder region Disorders of bursae and tendons in shoulder region, unspecified documented in this encounter Administered Medications Inactive Administered Medications - up to 3 most recent administrations Medication Order MAR Action Action Date Dose Rate Site triamcinolone acetonide (KENALOG-40) 40 MG/ML injection 40 mg 40 mg, Intra-articular, ONCE, On 02/22/24 at 0845, For 1 dose Given 02/22/2024 8:27 AM CDT 40 mg documented in this encounter Care Teams Care Specialist Relationship Specialty Start Date End Date Jairo Brock MD [address] [place] [address] PCP - General 07/16/1996 documented as of this encounter
--- OUTSIDE RECORDS SUMMARY | 2024-04-01 00:23 | XMS_ITS | Clinical Summary ---
Author Organization [facility] Address [address] [place] [address] Care Team Providers Care Plant Production Manager Name Role Phone Jairo Brock MD Primary Care Provider [phone] Source Comments You are receiving this document as you are listed as the primary care provider,follow-up provider, or the patient has been referred to you for consultation.This is in compliance with the Medicare and[facility] EHR Incentive Program,which states Providers who transition their patient to another setting of careor provider of care or refers their patient to another provider of care shouldprovide summary care record for each transition of care or referral. [employer] Allergies No known active allergies Medications Medication Sig Dispensed Refills Start Date End Date Status unknown medication Indications: PN: 04/05/2009 Active unknown medication Indications: PN: 04/05/2009 Active Active Problems No known active problems Encounters Date Type Department Care Team Description 02/22/2024 8:00 AM CDT Ancillary Procedure [facility] - Ultrasound [address] [place] [address] Ana Padilla MD Right shoulder pain, unspecified chronicity; Disorder of bursae and tendons in shoulder region 02/15/2024 11:30 AM CDT E-Visit [facility] [address] [place] [address] Ana Padilla MD Dx: Right shoulder pain, unspecified chronicity (Primary [...] Comments Blood Pressure 138/82 07/15/2011 10:40 AM [employer] ACTIVITIES CLERK Pulse 72 07/15/2011 10:40 AM SE[employer] ACTIVITIES CLERK Temperature 36.6 ??C (97.9 ??F) 07/15/2011 10:[address] Respiratory Rate - - Oxygen Saturation - - Inhaled Oxygen Concentration - - Weight 74.8 kg (165 lb) 08/05/2023 8:49 AM SE[employer] ACTIVITIES CLERK Height 172.7 cm (5' 8) 08/05/2023 8:49 AM SE[employer] ACTIVITIES CLERK Body Mass Index 25.09 08/05/2023 8:49 AM SE[employer] ACTIVITIES CLERK Plan of Treatment Health Maintenance Due Date Last Done Comments Colon Cancer Screening Plan Due 1976 Diabetes Screening- (based o n age and BMI) 1976 Hep C Screening (Preventive Services) 1976 MTM Covered 1976 Pneumococcal (1 - PCV) 1982 HIV Screening (Preventive Services) 1992 HepB (1) 1995 Adult Preventive Visit 06/18/1995 06/18/1994 Cholesterol 2011 COVID-19 Vaccine (1 - 2022-2 4 season) 2023 Influenza (#1) 2024 Zoster/Shingles (1 of 2) 2026 DTaP/Tdap/Td [...] of bursae and tendons in shoulder region from Last 3 Months Results * US [...] postprocedure pain level 0/10. Ana Padilla MD RAD US from Last 3 Months Care Teams Plant Production Manager Relationship Specialty Start Date End Date Jairo Brock MD [address] [place] [address] PCP - General 07/16/1996
== END 2024-03-28 08:06 | disposition home or self-care (01) ==
LOC: NFLDREF 04-01 00:20
PROVIDERS: PCP Physician Assistant Medical; Referring Provider Physician Assistant Medical; Visit Provider Physician Assistant Medical
DX: R68.82 Decreased libido (principal); I10 Essential (primary) hypertension; R73.03 Prediabetes
CPT/HCPCS: 84403